=== PATIENT | male | born 1985 | race Two or more races ===

== ENCOUNTER 2024-09-26 13:12 | Outpatient (AMB) | payer MEDICAID, SELFPAY ==
[2024-09-26 13:24] VITALS: BP 121/80; PULSE 117; RESP 18; TEMP 36.7; O2SAT 98
--- NOTE | 2024-09-26 13:24 | PD.RESCLINIC ---
Vital Signs 09/26/24 13:24 Weight 98.656 kg Weight Measurement Method Standing Scale BP 121/80 Blood Pressure Source Automatic Cuff Blood Pressure Location Left Upper Arm Position Sitting Respiration 18 Pulse 117 H Pulse Source Monitor Temp 98.1 F Temp Source Oral Pulse Oximetry (%) 98 Oxygen Delivery Method Room Air Allergies/Meds Allergies & Medications Allergies No Known Allergies Allergy (Verified 09/26/24 13:25) Medication Reconciliation gabapentin 300 mg capsule 300 mg PO TID diabetic neuropathy #90 caps 10/10/23 [Rx Confirmed 09/26/24] lisinopril 5 mg tablet 5 mg PO QDAY 30 days #30 tabs 11/10/23 [Rx Confirmed 09/26/24] pantoprazole 40 mg tablet,delayed release (Protonix) 40 mg PO BID #60 tabs 12/27/23 [Rx Confirmed 09/26/24] blood sugar diagnostic (Accu-Chek Guide test strips) #100 ea 01/16/24 [Rx Confirmed 09/26/24] lancets 30 gauge (OneTouch UltraSoft 2 Lancet) #200 ea 03/26/24 [Rx Confirmed 09/26/24] pen needle, diabetic 33 gauge x 5/32 (Comfort EZ Pen [place]) #100 ea 06/06/24 [Rx Confirmed 09/26/24] blood-glucose sensor (FreeStyle Tank 3 Sensor device) #2 ea 06/13/24 [Rx Confirmed 09/26/24] insulin degludec 200 unit/mL (3 mL) subcutaneous pen (Tresiba FlexTouch U-200 insulin) 30 unit (0.15 mL) subcut BID #9 mL 06/13/24 [Rx Confirmed 09/26/24] metformin 750 mg tablet,extended release 24 hr 750 mg PO QDAY #30 tabs 06/13/24 [Rx Confirmed 09/26/24] bupropion HCl 150 mg tablet,12 hr sustained-release 150 mg PO BID #60 ea 08/01/24 [Rx Confirmed 09/26/24] testosterone cypionate 200 mg/mL intramuscular oil 200 mg IM QMONTH hypogonadism #1 mL 08/01/24 [Rx Confirmed 09/26/24] sucralfate 100 mg/mL oral suspension (Carafate) 10 ml PO QID #420 mL 08/15/24 [Rx Confirmed 09/26/24] amoxicillin 875 mg-potassium clavulanate 125 mg tablet 1 tab PO BID #10 tabs 09/04/24 [Rx Confirmed 09/26/24] blood-glucose sensor (Dexcom G7 Sensor device) #1 ea 09/26/24 [Rx] insulin lispro 100 unit/mL subcutaneous pen 20 unit (0.2 mL) subcut TID #15 mL 09/26/24 [Rx] tirzepatide (weight loss) 2.5 mg/0.5 mL subcutaneous pen injector (Zepbound) 2.5 mg (0.5 mL) subcut QWEEK #2 mL 09/26/24 [Rx] hydrocodone 5 mg-acetaminophen 325 mg tablet 1 tab PO Q8H PRN pain #20 tabs 10/10/24 [Rx] MA Intake Visit Data Collection New Patient or Established: Established Patient (seen at [facility] within 3 years) Seen by Clinical Staff ONLY (RN/MA): No Pain Present Currently: Yes Pain Location: Back and Leg Pain scale:: 7 Pain Scale Used: Dickey-Hanna/Numerical PCP or OBGYN visit in last 3 months: Yes Do You Feel Safe at Home: Yes Authorities Contacted: N/A Smoking Status Smoking Status: Current some day smoker Cessation Counseling Provided: AMY was advised that quitting smoking is the single most important factor to protect the health of themselves and their family. Discussed the benefits of quitting smoking with patient. Encouraged patient to quit smoking and provided Cessation assistance materials and resources. Tobacco Use: Vapor Cigarette Years smoked: 1 Are you interested in quitting?: No Would you like additional Smoking Cessation Counseling?: No Immunization / Flu Flu Vaccine in the Last 12 Months: No Flu Vaccine Exclusion Criteria: No Exclusion Criteria Past Medical History Past Medical History NEUROLOGIC: Negative Neurological Disorders or Seizures CARDIAC: Positive Cardiac Disorders, Hypercholesterolemia and Hypertension; Negative Congestive Heart Failure RESPIRATORY: Negative Chronic Obstructive Pulmonary Disease (COPD) or Asthma GASTROINTESTINAL: Negative Gastrointestinal Disorders GENITOURINARY: Negative Genitourinary Disorders or Renal Disease ENDOCRINE: Positive Endocrine Disorders and Diabetes Mellitus Type 2; Negative Diabetes Mellitus Type 1 HEMATOLOGIC: Negative Blood Disorders or Sickle Cell Disease PSYCHO/SOCIAL: Positive Depression and Anxiety OTHER HISTORY: Positive Falls; Negative Blood Transfusions, Anesthesia Reactions or Cancer Surgical History SURGICAL: Positive Tonsillectomy Social History SMOKING STATUS: Smoking status: Current some day smoker ALCOHOL: Alcohol Intake: Former ALCOHOL FREQUENCY: Alcohol Intake Frequency: holidays/special occasions only HOUSING: Housing: House LIVES WITH: Lives With: Friend(s) Patient Portal Questionaires Social History Living Situation History Housing: House Housing Other:: Pt lives with family Tobacco History Smoking Status: Current some day smoker Alcohol History Alcohol Intake: Former Alcohol Intake Frequency: holidays/special occasions only Substance Use History Substance Use: Meth Domestic Abuse History Do You Feel Safe at Home: Yes Review of Systems Report any current symptoms Only answer those that you have currently: Past Medical History Past Medical History Have you ever been diagnosed with any of the following: Neurological Problems Seizures: No Cardiology Problems Hypercholesterolemia: Yes Congestive Heart Failure: No Hypertension: Yes Respiratory Problems Chronic Obstructive Pulmonary Disease (COPD): No Asthma: No Genital/Urinary Problems Renal Disease: No Endocrine Problems Diabetes Mellitus Type 1: No Diabetes Mellitus Type 2: Yes Blood Problems Sickle Cell Disease: No Psychologic Problems Depression: Yes Anxiety: Yes Other Problems Falls: Yes Blood Transfusions: No Anesthesia Reactions: No Cancer: No History of Present Illness HPI Narrative Patient is 39 years old male with past medical history of left knee ACL rupture, hyperlipidemia, hypertension, right foot cellulites and unknown type of poorly controlled DM presented to [facility] resident academic clinic for the follow up appointment. He was seen in academic clinic on 09/04 after he was bitten by the dog and was prescribed Augmentin for 5 days. He has 3 small wounds on his lower back, inflamed and tender to touch. He completed course of antibiotics and reports mild improvement. He also developed painful bump in his right armpit with fluctuating mass, suspicious for abscess. He denied any fever, chills. His glucose today 403, he reports being compliant with his medications, however zepbound is still pending as insurance requested preauthorization, which was sent today. Patient has skipped 2 injections of zepbound at this time. He continues to have pain in his left knee and limited mobility which is unchanged since last visit, authorization for orthopedic surgery is still pending. He continues to take his medications from his therapist. He denies taking any drugs and continues attending meetings. He continues testosterone injections and is scheduled for next week. Review of Systems Review of Systems Narrative Review of Systems: General: Denies weight loss, fever and chills. HEENT: Denies changes in vision and hearing. Resp: Denies SOB, cough and wheezing. CVS: Denies palpitations and CP. GI: Denies abdominal pain, nausea, vomiting and diarrhea. : Denies dysuria and urinary frequency. MSK: + left knee pain, lower back pain, right armpit tender mass. Denies myalgia and joint pain. Denies rash and pruritus. Neuro: Denies headache and syncope. Psych: Denies recent changes in mood. Denies anxiety and depression. Objective/Exam Narrative Physical exam: Gen: Well-developed male, interacting well, calm and cooperative. HEENT: NCAT, PERRLA, EOMI, MMM, anicteric conjunctivae. CVS: normal S1 and S2. Regular tachycardia. No M/R/G. Resp: CTAB, no wheezing, crackles or rhonchi. Abd: soft, non-tender, non-distended. BS+ in all 4 quadrants. MSK: Good ROM in BUE. Multiple hypopigmented skin spots consistent with vitiligo. Left knee is in immobilizer, mildly tender to palpation and ROM. 3 healing wounds from dog bite on lower back. Tender fluctuation mass in right armpit suspicious for abscess. Neuro: CN II-XII grossly intact. Psych: appropriate mood and affect. Assessment & Plan Diagnosis / Problem List (1) Axillary hidradenitis suppurativa: Status: Acute Assessment & Plan: 3x5 cm fluctuating tender mass in right armpit, consistent with hydradenitis, suspected abscess. Patient reported it was draining some pus yesterday. Plan: -Patient was recommended to go to ED today for imaging and surgical consult, however patient will not be able to go there until Monday. He was strongly recommended to go to ED on Monday or sooner, or if symptoms worsen or he develops fever and chills. -Started on Clindamycin 300 mg Q6H for 7 days or until he goes to ED. (2) Dog bite of back: Status: Acute Assessment & Plan: Bit by dog on 09/03. Tetanus shot 09/2022. Completed Augmentin BID for 5 days on 09/09. Plan: -Started on clindamycin 300 mg Q6H for 1 week. -counselled on worsening infection, fever, to go to urgent care or ER. (3) Low testosterone in male: Status: Acute Assessment & Plan: Testosterone level 241 in Jun 2024. On testosterone replacement therapy. Plan: - Injection scheduled for next week. - Check testosterone levels after 3 months. (4) ACL (anterior cruciate ligament) rupture: Status: Acute Qualifiers: Encounter type: initial encounter Laterality: left Qualified Code(s): S83.512A - Sprain of anterior cruciate ligament of left knee, initial encounter Assessment & Plan: Pending insurance authorization for orthopedic surgery consult. Plan: -Continue with [place] for pain as needed. (5) Depression: Status: Chronic Qualifiers: Active/Remission status: currently active Depression Type: major depressive disorder Major depression episode severity: mild Major depression recurrence: single episode Qualified Code(s): F32.0 - Major depressive disorder, single episode, mild Assessment & Plan: Takes Wellbutrin, tolerating well. Plan: Continue Wellbutrin 150 mg BID. (6) Diabetes mellitus type 2 with complications, uncontrolled: Status: Acute Assessment & Plan: Pending zepbound preauthorization, patient already skipped 2 injections and his glucose today 403. Plan: -Continue with Tresiba 30U BID and Lispro for BG above 200. -Continue zepbound weekly. -Continue metformin 750 Mg ER once daily. -Reinforced low carbohydrate and sugar-free diet. -follow up with opthamology for yearly exam. -follow up podiatry. (7) Diabetes mellitus with diabetic neuropathy: Status: Chronic Qualifiers: Diabetes mellitus type: type 1 Qualified Code(s): E10.40 - Type 1 diabetes mellitus with diabetic neuropathy, unspecified Plan: Continue gabapentin 300 mg TID. Follow up with podiatry. Additional Assessment Attending note: I, Noah Turner MD, attest that I was physically present for the alatorre portions of the service and evaluated the patient with the resident and I reviewed and discussed the case with the resident and agree with the resident's findings and plans of care as documented above. Follow-up visit. Has fluctuant abscess in right axilla. Did drain pus yesterday. May need incision and drainage. Patient started on clindamycin. Patient to get tetanus shot for prior dog bite. Had completed 5 days of Augmentin. Patient to have injection of testosterone next week. Still waiting on insurance authorization for orthopedic surgery evaluation for ACL tear. Diabetes self-care reviewed including diet, exercise, footcare, eye care. Patient has missed 2 weekly injections of GLP-1. Patient to resume this along with other medications. Other plans as above. Noah Turner MD Additional Plan Plan of care discussed with attending Dr. Turner. Rafael Giraldo MD, PGY 2. Disclaimer: This note was dictated by speech recognition. Minor errors in jd edwards may be present due to voice recognition software. Physician Billing Established Patient Established Patient: E/M Level 3-CPT 48792 Office Procedures [facility] Level of Care Nursing/Assessment Patient Status: Established Patient Nursing Assessment/Reassessment: Medication Reconciliation, Update PMH in EMR and Vital Signs Coordination of Care: Complex Care and Chronic Disease 1-5, Education Complex Pt/Fam and Staff clarify orders Established Patient Charge Established Patient Point Assignment: 85 Established Patient Point Charge: EP Level 3 (80-115)
== END 2024-09-26 14:03 | disposition home or self-care (01) ==
LOC: HODAHC 13:12
PROVIDERS: PCP Student in an Organized Health Care Education/Training Program; Referring Provider Student in an Organized Health Care Education/Training Program; Supervising Provider Internal Medicine; Visit Provider Student in an Organized Health Care Education/Training Program
DX: S21.259D Open bite of unspecified back wall of thorax without penetration into thoracic cavity, subsequent encounter (principal); W54.0XXD Bitten by dog, subsequent encounter; L73.2 Hidradenitis suppurativa; S83.512D Sprain of anterior cruciate ligament of left knee, subsequent encounter; X58.XXXD Exposure to other specified factors, subsequent encounter; E29.1 Testicular hypofunction; E11.40 Type 2 diabetes mellitus with diabetic neuropathy, unspecified; E78.5 Hyperlipidemia, unspecified; I10 Essential (primary) hypertension
CPT/HCPCS: 99213; G0463

== ENCOUNTER 2024-10-17 14:24 | Outpatient (AMB) | payer MEDICAID, SELFPAY ==
[2024-10-17 14:09] VITALS: BP 134/90; PULSE 111; RESP 18; TEMP 36.2; O2SAT 96; BMI 29.5
--- NOTE | 2024-10-17 14:09 | ACNOTE_ITS ---
Vital Signs 3 10/17/24 14:09 Height 1.83 m Height Method Stated Weight 98.94 kg Weight Measurement Method Standing Scale BMI 29.5 BP 134/90 H Blood Pressure Source Automatic Cuff Blood Pressure Location Left Upper Arm Position Sitting Respiration 18 Pulse 111 H Pulse Source Monitor Temp 97.2 F Temp Source Oral Pulse Oximetry (%) 96 Oxygen Delivery Method Room Air Allergies/Meds Allergies & Medications Allergies No Known Allergies Allergy (Verified 10/17/24 14:10) Medication Reconciliation gabapentin 300 mg capsule 300 mg PO TID diabetic neuropathy #90 caps 10/10/23 [Rx Confirmed 10/17/24] lisinopril 5 mg tablet 5 mg PO QDAY 30 days #30 tabs 11/10/23 [Rx Confirmed 10/17/24] pantoprazole 40 mg tablet,delayed release (Protonix) 40 mg PO BID #60 tabs 12/27/23 [Rx Confirmed 10/17/24] blood sugar diagnostic (Accu-Chek Guide test strips) #100 ea 01/16/24 [Rx Confirmed 10/17/24] lancets 30 gauge (OneTouch UltraSoft 2 Lancet) #200 ea 03/26/24 [Rx Confirmed 10/17/24] pen needle, diabetic 33 gauge x 5/32 (Comfort EZ Pen [place]) #100 ea 06/06/24 [Rx Confirmed 10/17/24] blood-glucose sensor (FreeStyle Tank 3 Sensor device) #2 ea 06/13/24 [Rx Confirmed 10/17/24] insulin degludec 200 unit/mL (3 mL) subcutaneous pen (Tresiba FlexTouch U-200 insulin) 30 unit (0.15 mL) subcut BID #9 mL 06/13/24 [Rx Confirmed 10/17/24] metformin 750 mg tablet,extended release 24 hr 750 mg PO QDAY #30 tabs 06/13/24 [Rx Confirmed 10/17/24] bupropion HCl 150 mg tablet,12 hr sustained-release 150 mg PO BID #60 ea 08/01/24 [Rx Confirmed 10/17/24] testosterone cypionate 200 mg/mL intramuscular oil 200 mg IM QMONTH hypogonadism #1 mL 08/01/24 [Rx Confirmed 10/17/24] sucralfate 100 mg/mL oral suspension (Carafate) 10 ml PO QID #420 mL 08/15/24 [Rx Confirmed 10/17/24] blood-glucose sensor (Dexcom G7 Sensor device) #1 ea 09/26/24 [Rx Confirmed 10/17/24] insulin lispro 100 unit/mL subcutaneous pen 20 unit (0.2 mL) subcut TID #15 mL 09/26/24 [Rx Confirmed 10/17/24] tirzepatide (weight loss) 2.5 mg/0.5 mL subcutaneous pen injector (Zepbound) 2.5 mg (0.5 mL) subcut QWEEK #2 mL 09/26/24 [Rx Confirmed 10/17/24] doxycycline hyclate 100 mg capsule 100 mg PO BID #28 caps 10/17/24 [Rx] hydrocodone 5 mg-acetaminophen 325 mg tablet 1 tab PO Q8H PRN pain #60 tabs 10/17/24 [Rx] MA Intake Visit Data Collection New Patient or Established: Established Patient (seen at [facility] within 3 years) Seen by Clinical Staff ONLY (RN/MA): No Pain Present Currently: Yes Pain Location: Back and Knee Pain scale:: 6 Pain Scale Used: Dickey-Hanna/Numerical Cuff Setter [place] Required: No PCP or OBGYN visit in last 3 months: Yes Do You Feel Safe at Home: Yes Authorities Contacted: N/A Smoking Status Smoking Status: Current some day smoker Cessation Counseling Provided: AMY was advised that quitting smoking is the single most important factor to protect the health of themselves and their family. Discussed the benefits of quitting smoking with patient. Encouraged patient to quit smoking and provided Cessation assistance materials and resources. Tobacco Use: Cigarette Years smoked: 5 Are you interested in quitting?: No Immunization / Flu Flu Vaccine in the Last 12 Months: No Flu Vaccine Exclusion Criteria: Refused by Patient Past Medical History Past Medical History NEUROLOGIC: Negative Neurological Disorders or Seizures CARDIAC: Positive Cardiac Disorders, Hypercholesterolemia and Hypertension; Negative Congestive Heart Failure RESPIRATORY: Negative Chronic Obstructive Pulmonary Disease (COPD) or Asthma GASTROINTESTINAL: Negative Gastrointestinal Disorders GENITOURINARY: Negative Genitourinary Disorders or Renal Disease ENDOCRINE: Positive Endocrine Disorders and Diabetes Mellitus Type 2; Negative Diabetes Mellitus Type 1 HEMATOLOGIC: Negative Blood Disorders or Sickle Cell Disease PSYCHO/SOCIAL: Positive Depression and Anxiety OTHER HISTORY: Positive Falls; Negative Blood Transfusions, Anesthesia Reactions or Cancer Surgical History SURGICAL: Positive Tonsillectomy Social History SMOKING STATUS: Smoking status: Current some day smoker ALCOHOL: Alcohol Intake: Former ALCOHOL FREQUENCY: Alcohol Intake Frequency: holidays/special occasions only HOUSING: Housing: House LIVES WITH: Lives With: Friend(s) Patient Portal Marcoairluis Social History Living Situation History Housing: House Housing Other:: Pt lives with family Tobacco History Smoking Status: Current some day smoker Alcohol History Alcohol Intake: Former Alcohol Intake Frequency: holidays/special occasions only Substance Use History Substance Use: Meth Domestic Abuse History Do You Feel Safe at Home: Yes Review of Systems Report any current symptoms Only answer those that you have currently: Past Medical History Past Medical History Have you ever been diagnosed with any of the following: Neurological Problems Seizures: No Cardiology Problems Hypercholesterolemia: Yes Congestive Heart Failure: No Hypertension: Yes Respiratory Problems Chronic Obstructive Pulmonary Disease (COPD): No Asthma: No Genital/Urinary Problems Renal Disease: No Endocrine Problems Diabetes Mellitus Type 1: No Diabetes Mellitus Type 2: Yes Blood Problems Sickle Cell Disease: No Psychologic Problems Depression: Yes Anxiety: Yes Other Problems Falls: Yes Blood Transfusions: No Anesthesia Reactions: No Cancer: No History of Present Illness HPI Narrative 39-year-old male with past medical history of left knee ACL rupture, hyperlipidemia, hypertension, and IDDM was seen in the [facility] clinic today for follow-up and for his testosterone shot. Patient was briefly seen due to fluctuating tender mass in the right arm. For which she was prescribed clindamycin. Today on assessment mass had greatly improved and he stated that he did not have any pain. Other entry wounds from a prior dog bite were also greatly improved and patient stated that they had not been having any discharge. He did mention that he did get a new mass at the back of his head, but denies any fevers, chills, sweats, or cough. Patient is also due for testosterone injection today, which was administered without any complication. Patient did mention that he is going to go back to work and wants to be cleared even though it was explained to him that he has an ongoing injury that could worsen with prolonged weightbearing. He stated that he had to go back to work as his disability had finished and he understood all risk of him going back to work with his current injury of ACL rupture. Work release was given to patient and he was counseled to wear a knee brace as well as being nonweightbearing as possible. He had no other complaints at this time other than his pain in his knee and the knee for his testosterone. Will follow-up with patient in 2 weeks to see progression of mass in the posterior aspect of his head. Review of Systems Review of Systems Narrative Review of Systems: Constitutional: Denies sweats, Denies weight loss/gain, Denies fever, Denies chills. HEENT: Denies hearing loss, Denies ear pain, Denies postnasal drip, Denies double vision, Denies blurry vision. Respiratory: Denies shortness of breath, Denies cough, Denies wheezing. Cardiovascular: Denies chest pain, Denies palpitations, Denies sudden loss of consciousness. GI: Denies blood in stool, Denies constipation, Denies abdominal pain, Denies difficulty swallowing, Denies nausea or vomit. : Denies urinary incontinence, Denies pain while urinating, Denies increased urinary frequency. MSK: Admits joint pain, Admits joint swelling, Denies numbness. Skin: Denies rash, Denies itching, Denies easy bruising, Admits mass. Neuro: Denies headaches, Denies dizziness, Denies seizures. Objective/Exam General General Appearance: alert, comfortable, cooperative and well developed Head Head exam: atraumatic and normocephalic Exp Head Head image: 2 1. Nonfluctuating mass with dry discharge likely carbuncle. Eye Eye exam: Present normal appearance, PERRL and EOMI ENT ENT exam: Present normal exam, normal oropharynx and mucous membranes dry Neck Neck exam: Present normal inspection and full ROM Resp Respiratory exam: Present normal lung sounds bilaterally Card Cardiovascular exam: Present regular rate, normal rhythm and normal heart sounds Abdominal Abdominal exam: Present soft and normal bowel sounds Extremities Extremities exam: Present normal inspection, full ROM, tenderness (R knee ) and joint swelling (R knee) Neuro Neurological exam: Present alert, oriented X3 and CN II-XII intact Psych Psychiatric exam: Present normal affect and normal mood Skin Skin exam: Present intact and normal color Assessment & Plan Diagnosis / Problem List (1) Carbuncle: Status: Acute Assessment & Plan: nonfluctuating mass in posterior head with dry discharge Plan: Doxycycline 100mg BID for 2 weeks Advised to go the ER if developed fever, chills, worsening pain or change in size or color. (2) Axillary hidradenitis suppurativa: Status: Acute Assessment & Plan: Improving Completed Clindamycin Plan: Doxycycline 100mg BID for 2 weeks Advised to go the ER if developed fever, chills, worsening pain or change in size or color. (3) Dog bite of back: Status: Acute Assessment & Plan: Bit by dog on 09/03. Tetanus shot 09/2022. Completed Augmentin BID for 5 days on 09/09. -Improving Plan: Doxycycline 100mg BID for 2 weeks Advised to go the ER if developed fever, chills, worsening pain or change in size or color. (4) Low testosterone in male: Status: Acute Assessment & Plan: Testosterone level 241 in Jun 2024. On testosterone replacement therapy. Plan: Injection given today (5) ACL (anterior cruciate ligament) rupture: Status: Acute Qualifiers: Encounter type: initial encounter Laterality: left Qualified Code(s): S83.512A - Sprain of anterior cruciate ligament of left knee, initial encounter Assessment & Plan: Still no surgery Patient requested to be cleared to go back to work and understood all risks of his injury. Plan: -Continue with [place] for pain as needed. -Work release given as per patient's request upon explaining all risks. (6) Diabetes mellitus type 2 with complications, uncontrolled: Status: Acute Assessment & Plan: Blood glucose 240 today on fingerstick Plan: -Continue with Tresiba 30U BID and Lispro for BG above 200. -Continue zepbound weekly. -Continue metformin 750 Mg ER once daily. -Reinforced low carbohydrate and sugar-free diet. Additional Assessment Attending note: I, Noah Turner MD, attest that I was physically present for the alatorre portions of the service completed via telehealth, and I reviewed and discussed the case with the resident and agree with the resident's plans of care as documented above. Follow-up visit. Carbuncle in axilla improved. Dog bite wound improved. Testosterone injection administered today using patient's own medication. Patient asking for clearance to go back to work in spite of ACL rupture that has not yet been repaired. He will continue to wear a knee brace. He is aware of the risks of further potential injury given the knee instability. Note made on exam today of small carbuncle on posterior scalp. We will cover with doxycycline for 2 weeks. Blood sugars continue to be elevated. Need for diet and exercise compliance reinforced though exercise difficult at this time given the issues. Also emphasized need for medication compliance. Limited amount of [place] refilled for knee pain. Noah Turner MD Physician Billing Established Patient Established Patient: E/M Level 3-CPT 58728 Office Procedures [facility] Level of Care Nursing/Assessment Patient Status: Established Patient Nursing Assessment/Reassessment: Medication Reconciliation, Update PMH in EMR and Vital Signs Coordination of Care: Complex Care and Chronic Disease 1-5, Consent,records obtained, informed consent, Education Simp Pt/Fam and Staff clarify orders Established Patient Charge Established Patient Point Assignment: 85 Established Patient Point Charge: EP Level 3 (80-115)
== END 2024-10-17 15:00 | disposition home or self-care (01) ==
LOC: HODAHC 14:24
PROVIDERS: PCP Student in an Organized Health Care Education/Training Program; Referring Provider Student in an Organized Health Care Education/Training Program; Supervising Provider Internal Medicine
DX: L02.831 Carbuncle of head [any part, except face] (principal); L73.2 Hidradenitis suppurativa; E29.1 Testicular hypofunction; S83.512D Sprain of anterior cruciate ligament of left knee, subsequent encounter; X58.XXXD Exposure to other specified factors, subsequent encounter; E11.9 Type 2 diabetes mellitus without complications; Z79.4 Long term (current) use of insulin; Z79.84 Long term (current) use of oral hypoglycemic drugs
CPT/HCPCS: 99213; G0463

== ENCOUNTER 2024-10-29 17:43 | Inpatient (IN) | payer MEDICAID, SELFPAY ==
[2024-10-29] VITALS (24 sets, daily range): BP systolic 100–133; BP diastolic 65–82; PULSE 118–132; RESP 13–98; TEMP 36.4; O2SAT 97–100; BMI 29.4
--- NOTE | 2024-10-29 18:35 | EKG_ITS ---
[facility] Test Date: 2024-10-29 Pat Name: AMY CHEN Department: Room: - Gender: Male Testing Specialist: : [id number] Requested By: Shan Hsieh ([facility]) Order Number: [id number] Reading MD: Shan Hsieh ([facility]) Measurements Intervals [place] Rate: 130 P: 49 [place]: 146 QRS: -38 QRSD: 97 T: 59 QT: 302 QTc: 445 Interpretive Statements SINUS TACHYCARDIA MARKED LEFT AXIS DEVIATION [QRS AXIS < -30] LOW QRS VOLTAGE IN PRECORDIAL LEADS [QRS DEFLECTION < 1.0 mV IN CHEST LEADS] PATTERN CONSISTENT WITH PULMONARY DISEASE PROBABLE INFERIOR MYOCARDIAL INFARCTION , OF INDETERMINATE AGE [35 ms Q WAVE IN II/aVF] Compared to ECG 03/21/2024 10:35:17 Left-axis deviation now present Low QRS voltage now present Sinus rhythm no longer present Myocardial infarct finding still present /store/S0/[id number]/ecg/[id number].pdf
--- NOTE | 2024-10-29 18:35 | PD.EDRME ---
Rapid Medical Screening Exam RME Arrival date/time: 10/29/24 17:43 39-year-old male past medical history of hypertension diabetes presents emergency department complaining of skin infection to neck that is been ongoing for several days. Chief Complaint: Skin/Abscess/Foreign Body Time Seen by Provider: 10/29/24 18:06 Vital signs: Vital Signs Temperature 97.6 F 10/29/24 18:28 Pulse Rate 118 H 10/29/24 18:28 Respiratory Rate 18 10/29/24 18:28 Blood Pressure 133/82 H 10/29/24 18:28 Pulse Oximetry (%) 98 10/29/24 18:28 Oxygen Delivery Method Room Air 10/29/24 18:28 Vital signs reviewed by provider: Yes
--- NOTE | 2024-10-29 18:36 | XR_ITS ---
Examination: CT soft tissue neck, with intravenous contrast. 2-D coronal reconstructions. 2-D sagittal reconstructions. Date and time of exam :October 29, 2024 2049 hrs. Indications: Abdominal pain beginning 2 weeks ago, clinical diagnosis abscess, history diffuse pancreatitis, 3 mm left renal calculus on CT study March 21, 2024., Soft tissue swelling and neck pain posterior left neck CTDI: vol (mGy):10.8 DLP: (mGycm):379 Technique: 1.25 mm axial sections of the neck of the obtained. Coronal and sagittal reconstructions have been obtained. Intravenous contrast administered 30 cc Isovue-370. Low dose protocols were performed. One or more of the following dose reduction techniques were used; automated exposure control, adjustment of the mA and/or KV according to patient size, use of iterative reconstruction technique. Findings: Symmetrical optic globes Small fluid level in the right maxillary antrum Symmetrical nasopharynx and oropharynx Multiple submental and carotid triangle lymph nodes ranging in size up to 12 mm Cellulitis in the posterior left neck Subcutaneous soft tissue abscess posterior left neck, mediolateral dimension 5.4 cm, AP dimension 3.7 cm, cephalad caudad dimension 4.8 cm with marked adjacent skin thickening Normal epiglottis Impression: Subcutaneous soft tissue posterior left neck abscess, 5.4 x 3.7 x 4.8 cm
[2024-10-29 19:40] LABS: Lactate (Lactic Acid) 1.4 mMol/L (0.4-2.0)
[2024-10-29 19:46] LABS: Basophils # (Auto) 0.1 Thou/mm3 (0.0-0.2); Basophils % (Auto) 0 % (0-2.5); Eosinophils % (Auto) 0 % (0-10); Hematocrit 44.3 % (41.0-53.0); Hemoglobin 14.7 g/dL (13.5-16.0); Immature Granulocytes % (Auto) 2 % (0-0); Immature Granulocytes Auto 0.39 Thou/mm3 (0.00-0.00); Lymphocytes # (Auto) 1.1 Thou/mm3 (1.0-4.8); Lymphocytes % (Auto) 4 % (10-50); Mean Corpuscular HGB Conc 33.2 g/dl (31.0-37.0); Mean Corpuscular Hemoglobin 27.6 pg (25.0-35.0); Mean Corpuscular Volume 83 fL (80-100); Monocytes # (Auto) 2.3 Thou/mm3 (0.0-0.8); Monocytes % (Auto) 9 % (0-12); Neutrophils # (Auto) 20.8 Thou/mm3 (1.8-7.7); Neutrophils % (Auto) 85 % (37-80); Nucleated Red Blood Cell % 0 /100 WBC (0); Platelet Count 298 Thou/mm3 (140-440); RDW Standard Deviation 41.1 fL (35.1-43.9); Red Blood Count 5.32 Miln/mm3 (4.50-5.90); White Blood Count 24.6 Thou/mm3 (3.8-10.6)
[2024-10-29 20:07] LABS: B-Type Natriuretic Peptide < 20 pg/mL (0-100)
[2024-10-29 20:17] LABS: Alanine Aminotransferase 13 U/L (10-49); Albumin, Serum 4.9 gm/dL (3.5-5.0); Albumin/Globulin Ratio 1.6 (1.2-2.2); Alkaline Phosphatase 134 U/L (46-116); Anion Gap 22 (7-16); BUN/Creatinine Ratio 14 Ratio (12-20); Bilirubin,Total 0.3 mg/dL (0.3-1.2); Blood Urea Nitrogen 26 mg/dL (9-23); Calcium 10.1 mg/dL (8.3-10.6); Calcium (Corrected) 10.1 mg/dL (8.5-10.1); Chloride 94 mMol/L (98-107); Creatinine (Component) 1.8 mg/dL (0.6-1.3); Estimated Creatinine Clearance 65.6 mL/min (>60); Lipase 29 U/L (12-53); Osmolality,Calculated 280 (275-295); Potassium 5.4 mMol/L (3.4-5.1); Procalcitonin 0.17 ng/ml (0.0-0.49); Sodium 126 mMol/L (136-145); Total Protein 7.9 gm/dL (5.7-8.2); Troponin I < 0.002 ng/mL (0.0-0.045); eGFR 48 See Note
[2024-10-29 20:22] LABS: Aspartate Amino Transferase < 8 U/L (0-34)
[2024-10-29 20:24] LABS: Carbon Dioxide < 10.0 mMol/L (20.0-31.0); Glucose 495 mg/dL (74-106)
[2024-10-29 20:45] LABS: Partial Thromboplastin Time 36.9 Seconds (22.0-36.0); Prothrombin Time 11.2 Seconds (9.0-12.2)
--- NOTE | 2024-10-29 21:08 | PD.EDSKIN ---
ED Skin Abcess FB-RME/HPI General Chief complaint: Skin/Abscess/Foreign Body Stated complaint: bite from dog, abscess to lower back and left neck Time Seen by Provider: 10/29/24 18:06 Source: patient Arrival date/time: 10/29/24 17:43 Mode of arrival: ambulatory Limitations: no limitations RME / HPI RME / HPI narrative: 10/29/24 17:43 39-year-old male past medical history of hypertension diabetes presents emergency department complaining of skin infection to neck that is been ongoing for several days. Dr. Gates?s Main ED Evaluation: Related Data Previous Rx's ?Medication ?Instructions ?Recorded gabapentin 300 mg capsule 300 mg PO TID diabetic neuropathy 10/10/23 #90 caps lisinopril 5 mg tablet 5 mg PO QDAY 30 days #30 tabs 11/10/23 pantoprazole 40 mg tablet,delayed 40 mg PO BID #60 tabs 12/27/23 release (Protonix) blood sugar diagnostic (Accu-Chek #100 ea 01/16/24 Guide test strips) lancets 30 gauge (OneTouch #200 ea 03/26/24 UltraSoft 2 Lancet) pen needle, diabetic 33 gauge x #100 ea 06/06/24 (Comfort EZ Pen Carson) blood-glucose sensor (FreeStyle #2 ea 06/13/24 Tank 3 Sensor device) insulin degludec 200 unit/mL (3 30 unit (0.15 mL) subcut BID #9 mL 06/13/24 mL) subcutaneous pen (Tresiba FlexTouch U-200 insulin) metformin 750 mg tablet,extended 750 mg PO QDAY #30 tabs 06/13/24 release 24 hr bupropion HCl 150 mg tablet,12 hr 150 mg PO BID #60 ea 08/01/24 sustained-release testosterone cypionate 200 mg/mL 200 mg IM QMONTH hypogonadism #1 mL 08/01/24 intramuscular oil sucralfate 100 mg/mL oral 10 ml PO QID #420 mL 08/15/24 suspension (Carafate) blood-glucose sensor (Dexcom G7 #1 ea 09/26/24 Sensor device) insulin lispro 100 unit/mL 20 unit (0.2 mL) subcut TID #15 mL 09/26/24 subcutaneous pen tirzepatide (weight loss) 2.5 2.5 mg (0.5 mL) subcut QWEEK #2 mL 09/26/24 mg/0.5 mL subcutaneous pen injector (Zepbound) doxycycline hyclate 100 mg capsule 100 mg PO BID #28 caps 10/17/24 hydrocodone 5 mg-acetaminophen 325 1 tab PO Q8H PRN pain #60 tabs 10/17/24 mg tablet Allergies Allergy/AdvReac Type Severity Reaction Status Date / Time No Known Allergies Allergy Verified 10/29/24 17:48 Review of Systems Review of Systems Systems Reviewed: All systems reviewed, normal except as documented Past Medical History Past Medical History NEUROLOGIC: Negative Neurological Disorders or Seizures CARDIAC: Positive Hypercholesterolemia and Hypertension; Negative Cardiac Disorders or Congestive Heart Failure RESPIRATORY: Negative Chronic Obstructive Pulmonary Disease (COPD) or Asthma GASTROINTESTINAL: Negative Gastrointestinal Disorders GENITOURINARY: Negative Genitourinary Disorders or Renal Disease MUSCULOSKELETAL: Negative Musculoskeletal Disorders ENDOCRINE: Positive Endocrine Disorders and Diabetes Mellitus Type 2; Negative Diabetes Mellitus Type 1 HEMATOLOGIC: Negative Blood Disorders or Sickle Cell Disease PSYCHO/SOCIAL: Positive Depression and Anxiety OTHER HISTORY: Positive Falls; Negative Blood Transfusions, Anesthesia Reactions or Cancer Surgical History SURGICAL: Positive Tonsillectomy Social History SMOKING STATUS: Current every day smoker SUBSTANCE USE: does not use ED Exam Narrative Physical exam: GENERAL APPEARANCE: alert and oriented x 4, well-developed, well-nourished, no acute distress VITALS: All vitals were reviewed and the pulse ox is % on room air, which is normal according to my interpretation. HEENT: Normocephalic, atraumatic; pupils equal, round, reactive to light; EOMI; mucous membranes pink, moist; oropharynx clear NECK: Supple LUNGS: CTABL; no wheezes, no rales, no rhonchi HEART: Regular rate, regular rhythm; normal S1, S2; no murmurs ABDOMEN: non distended; normal BS; soft, no tenderness, no guarding, no rebound; no masses, no organomegaly, no hernia BACK: no CVA tenderness EXTREMITIES: atraumatic; no edema NEUROLOGIC: awake; alert and oriented x4; cranial nerves II-XII grossly intact; no focal sensory or motor deficits PSYCHIATRIC: appropriate mood and affect SKIN: warm, dry, normal color; no rashes General Limitations: Present no limitations Course Quality Measures none Orders Category Date Time Status CT Screening NOW Care 10/29/24 18:36 Active Continuous Pulse Oximetry STAT Care 10/29/24 18:35 Active EKG (ED ONLY) *Do not use* NOW Care 10/29/24 18:35 Completed Insert IV NOW Care 10/29/24 18:[address] soft tissue neck w con Stat Exams 10/29/24 18:36 Taken EKG (ED Only) Stat Exams 10/29/24 18:35 Draft B-Type Natriuretic Peptide Stat Lab 10/29/24 19:21 Completed Beta Hydroxybutyrate Stat Lab 10/29/24 20:37 Ordered Blood Culture (Lab) Stat Lab 10/29/24 19:21 Received CBC Stat Lab 10/29/24 19:21 Completed Comprehensive Metabolic Panel Stat Lab 10/29/24 19:21 Completed Drug Screen,Urine Stat Lab 10/29/24 18:35 Ordered Lactate (Lactic Acid) Stat Lab 10/29/24 19:21 Completed Lipase Stat Lab 10/29/24 19:21 Completed Magnesium Stat Lab 10/29/24 19:21 Completed Partial Thromboplastin Time Stat Lab 10/29/24 19:21 Completed Phosphorous Stat Lab 10/29/24 20:37 Ordered Procalcitonin Stat Lab 10/29/24 19:21 Completed Prothrombin Time with INR Stat Lab 10/29/24 19:21 Completed Troponin I Stat Lab 10/29/24 19:21 Completed Urinalysis Stat Lab 10/29/24 18:35 Ordered Urine Culture Stat Lab 10/29/24 18:35 Ordered VBG [Venous Blood Gas] Stat Lab 10/29/24 20:37 Ordered Vital Signs Vital signs: Vital Signs Temperature 97.6 F 10/29/24 18:28 Pulse Rate 118 H 10/29/24 18:28 Respiratory Rate 18 10/29/24 18:28 Blood Pressure 133/82 H 10/29/24 18:28 Pulse Oximetry (%) 98 10/29/24 18:28 Oxygen Delivery Method Room Air 10/29/24 18:28 Skin / Abscess / Foreign Body MDM Narrative MDM Narrative:: Scribe Attestation: I, Shashank Cheung am scribing for and in the presence of Dr. Gates. Provider Notation: Although this document has been carefully reviewed, there may still be some phonetic and other typographical errors. These errors are purely grammatical due to imperfections in the software program and should not be construed in any way to compromise the substance of the patient's medical care during this visit. Patient data External records reviewed:: [facility] previous records Discharge Plan Prescriptions/Referrals Prescriptions/Med Rec: No Action (DME) Accu-Chek Guide test strips Strip See Rx Instructions .Route Qty: 100 0RF Rx Instructions: As directed (DME) lancets [OneTouch UltraSoft 2 Lancet] 30 gauge misc See Rx Instructions .Route Qty: 200 0RF Rx Instructions: As directed (DME) pen needle, diabetic [Comfort EZ Pen [place]] 33 gauge x 5/32 needle See Rx Instructions .Route Qty: 100 5RF Rx Instructions: Use TID and PRN as directed bupropion HCl 150 mg tablet sustained-release 12 hr 150 mg PO BID Qty: 60 2RF testosterone cypionate 200 mg/mL oil 200 mg IM QMONTH MDD n/a Qty: 1 5RF (DME) Dexcom G7 Sensor Device See Rx Instructions .Route Qty: 1 0RF Rx Instructions: As directed insulin lispro 100 unit/mL insulin pen 20 unit subcut TID Qty: 15 1RF Rx Instructions: 20 units with meals Zepbound 2.5 mg/0.5 mL pen injector 2.5 mg subcut QWEEK Qty: 2 0RF Rx Instructions: for 4 weeks gabapentin 300 mg capsule 300 mg PO TID MDD 900 mg Qty: 90 2RF Rx Instructions: 1 QD x 2 days, then 1 BID x 2 days then 1 TID thereafter lisinopril 5 mg tablet 5 mg PO QDAY 30 Days Qty: 30 3RF metformin 750 mg tablet extended release 24 hr 750 mg PO QDAY Qty: 30 1RF insulin degludec [Tresiba FlexTouch U-200] 200 unit/mL (3 mL) insulin pen 30 unit subcut BID Qty: 9 1RF (DME) FreeStyle Tank 3 Sensor Device See Rx Instructions .Route Qty: 2 3RF Rx Instructions: As directed sucralfate [Carafate] 100 mg/mL suspension 10 ml PO QID Qty: 420 0RF Rx Instructions: swish in mouth and swallow; use after food/drink. 4 times daily hydrocodone-acetaminophen 5-325 mg tablet 1 tab PO Q8H MDD 15 mg PRN (Reason: pain) Qty: 60 0RF doxycycline hyclate 100 mg capsule 100 mg PO BID Qty: 28 0RF pantoprazole [Protonix] 40 mg tablet,delayed release (DR/EC) 40 mg PO BID Qty: 60 0RF Referrals: No Primary/Family,Physician [Primary Care Provider] - In 1 week Patient/Caregiver Discharge Instructions Print Language: Macedonian
--- NOTE | 2024-10-29 21:25 | PD.EDADULT ---
ED General RME/HPI General Chief complaint: Skin/Abscess/Foreign Body Stated complaint: bite from dog, abscess to lower back and left neck Time Seen by Provider: 10/29/24 18:06 Arrival date/time: 10/29/24 17:43 CC: Nausea vomiting neck pain HPI patient has been nausea and vomiting for the past 2 days patient states that he had an abscess on his neck approximately 3 weeks ago popped it, and it drained and now its come back again. The patient is a diabetic does not monitor his sugars. The patient is actively vomiting at the time of the exam. Patient complaining of localized neck pain to the site of the abscess. Related Data Previous Rx's ?Medication ?Instructions ?Recorded gabapentin 300 mg capsule 300 mg PO TID diabetic neuropathy 10/10/23 #90 caps lisinopril 5 mg tablet 5 mg PO QDAY 30 days #30 tabs 11/10/23 pantoprazole 40 mg tablet,delayed 40 mg PO BID #60 tabs 12/27/23 release (Protonix) blood sugar diagnostic (Accu-Chek #100 ea 01/16/24 Guide test strips) lancets 30 gauge (OneTouch #200 ea 03/26/24 UltraSoft 2 Lancet) pen needle, diabetic 33 gauge x #100 ea 06/06/24 (Comfort EZ Pen [place]) blood-glucose sensor (FreeStyle #2 ea 06/13/24 Tank 3 Sensor device) insulin degludec 200 unit/mL (3 30 unit (0.15 mL) subcut BID #9 mL 06/13/24 mL) subcutaneous pen (Tresiba FlexTouch U-200 insulin) metformin 750 mg tablet,extended 750 mg PO QDAY #30 tabs 06/13/24 release 24 hr bupropion HCl 150 mg tablet,12 hr 150 mg PO BID #60 ea 08/01/24 sustained-release testosterone cypionate 200 mg/mL 200 mg IM QMONTH hypogonadism #1 mL 08/01/24 intramuscular oil sucralfate 100 mg/mL oral 10 ml PO QID #420 mL 08/15/24 suspension (Carafate) blood-glucose sensor (Dexcom G7 #1 ea 09/26/24 Sensor device) insulin lispro 100 unit/mL 20 unit (0.2 mL) subcut TID #15 mL 09/26/24 subcutaneous pen tirzepatide (weight loss) 2.5 2.5 mg (0.5 mL) subcut QWEEK #2 mL 09/26/24 mg/0.5 mL subcutaneous pen injector (Zepbound) doxycycline hyclate 100 mg capsule 100 mg PO BID #28 caps 10/17/24 hydrocodone 5 mg-acetaminophen 325 1 tab PO Q8H PRN pain #60 tabs 10/17/24 mg tablet Allergies Allergy/AdvReac Type Severity Reaction Status Date / Time No Known Allergies Allergy Verified 10/29/24 17:48 Review of Systems Review of Systems Narrative Review of Systems: GEN: No fever, no chills, no weight loss EYES: No discharge, no visual changes, no pain HEENT: No ear pain, no congestion, no sore throat, +neck pain PULM: No shortness of breath, no cough, no congestion CV: No chest pain, no dyspnea on exertion, no palpitations GI: + nausea, + vomiting, no diarrhea, no pain, no constipation : No frequency, no urgency, no dysuria MUSC/SKEL: No joint pain, no back pain SKIN: No rash PSYCH: No hallucinations, no depression HEME/LYMPH: No easy bleeding or bruising tendencies NEURO: No weakness, no headache Past Medical History Past Medical History NEUROLOGIC: Negative Neurological Disorders or Seizures CARDIAC: Positive Cardiac Disorders, Hypercholesterolemia and Hypertension; Negative Congestive Heart Failure RESPIRATORY: Negative Chronic Obstructive Pulmonary Disease (COPD) or Asthma GASTROINTESTINAL: Negative Gastrointestinal Disorders GENITOURINARY: Negative Genitourinary Disorders or Renal Disease MUSCULOSKELETAL: Negative Musculoskeletal Disorders ENDOCRINE: Positive Endocrine Disorders and Diabetes Mellitus Type 2; Negative Diabetes Mellitus Type 1 HEMATOLOGIC: Negative Blood Disorders or Sickle Cell Disease PSYCHO/SOCIAL: Positive Depression and Anxiety OTHER HISTORY: Positive Falls; Negative Blood Transfusions, Anesthesia Reactions or Cancer Surgical History SURGICAL: Positive Tonsillectomy Social History SMOKING STATUS: Current some day smoker SUBSTANCE USE: does not use ED Exam Narrative Physical exam: [General: In moderate discomfort but not in any acute distress, active vomiting Head normocephalic HEENT: Within acceptable limits Neck is supple nontender Chest equal chest rise nontender to palpation Respiratory: Clear to auscultation no wheezes crackles or rubs CV: Rate rhythm is regular, tachycardic, no murmurs rubs or clicks Abdomen is soft nontender no masses positive bowel sounds all 4 quadrants Back: No CVA tenderness no spinous process tenderness from cervical spine thoracic and lumbar spine Skin: Erythematous warm to touch bulging at the base of the neck posterior left, no indurated center. Bite wounds to the left lower back are completely healed with no surrounding erythema or edema. Otherwise skin is intact no petechiae rash induration ulceration or crepitus Extremities: Moving all extremity against resistance cap refill less than 2 seconds neurosensory intact Neuro: Awake alert oriented x3 Glascow coma 15 no focal deficits] Course Quality Measures none Orders Category Date Time Status Admit to Inpatient Status Routine Admission 10/29/24 22:09 Active Patient Condition Routine Admission 10/29/24 22:09 Ordered Bedrest ONCE Care 10/29/24 22:04 Active Bedside Blood Glucose Q1H Care 10/29/24 22:[address] Screening NOW Care 10/29/24 18:36 Active General Ledger Accountant Q4H Care 10/29/24 22:04 Active Continuous Pulse Oximetry STAT Care 10/29/24 18:35 Active DKA Protocol QSHIFT Care 10/29/24 22:04 Active EKG (ED ONLY) *Do not use* NOW Care 10/29/24 18:35 Completed Insert IV NOW Care 10/29/24 18:37 Active Intake and Output Q1H Care 10/29/24 22:15 Ordered Intake and Output Q1H Care 10/29/24 23:15 Ordered NPO NOW Care 10/29/24 22:04 Active Notify provider NEEDED Care 10/29/24 22:04 Active Saline [Insert IV] NOW Care 10/29/24 21:18 Active Referral Registered Dietitian Routine Cons 10/29/24 22:04 Active Diet NPO (NOW) Diet 10/29/24 22:[address] soft tissue neck w con Stat Exams 10/29/24 18:36 Completed EKG (ED Only) Stat Exams 10/29/24 18:35 Draft B-Type Natriuretic Peptide Stat Lab 10/29/24 19:21 Completed Beta Hydroxybutyrate Stat Lab 10/29/24 21:54 Completed Blood Culture (Lab) Stat Lab 10/29/24 19:21 Received CBC AM DRAW Lab 10/30/24 05:00 Ordered CBC AM DRAW Lab 10/31/24 05:00 Ordered CBC AM DRAW Lab 11/01/24 05:00 Ordered CBC AM DRAW Lab 11/02/24 05:00 Ordered CBC AM DRAW Lab 11/03/24 05:00 Ordered CBC Stat Lab 10/29/24 19:21 Completed Comprehensive Metabolic Panel Stat Lab 10/29/24 19:21 Completed Drug Screen,Urine Stat Lab 10/29/24 18:35 Ordered Glycohemoglobin w (eAG) AM DRAW Lab 10/30/24 05:00 Ordered Lactate (Lactic Acid) Q4H Lab 10/30/24 02:15 Ordered Lactate (Lactic Acid) Q4H Lab 10/30/24 06:15 Ordered Lactate (Lactic Acid) Q4H Lab 10/30/24 10:15 Ordered Lactate (Lactic Acid) Q4H Lab 10/30/24 14:15 Ordered Lactate (Lactic Acid) Q4H Lab 10/30/24 18:15 Ordered Lactate (Lactic Acid) Q4H Lab 10/30/24 22:15 Ordered Lactate (Lactic Acid) Q4H Lab 10/31/24 02:15 Ordered Lactate (Lactic Acid) Q4H Lab 10/31/24 06:15 Ordered Lactate (Lactic Acid) Q4H Lab 10/31/24 10:15 Ordered Lactate (Lactic Acid) Q4H Lab 10/31/24 14:15 Ordered Lactate (Lactic Acid) Q4H Lab 10/31/24 18:15 Ordered Lactate (Lactic Acid) Q4H Lab 10/31/24 22:15 Ordered Lactate (Lactic Acid) Stat Lab 10/29/24 19:21 Completed Lipase Stat Lab 10/29/24 19:21 Completed Magnesium Q4H Lab 10/30/24 02:15 Ordered Magnesium Q4H Lab 10/30/24 06:15 Ordered Magnesium Q4H Lab 10/30/24 10:15 Ordered Magnesium Q4H Lab 10/30/24 14:15 Ordered Magnesium Q4H Lab 10/30/24 18:15 Ordered Magnesium Q4H Lab 10/30/24 22:15 Ordered Magnesium Q4H Lab 10/31/24 02:15 Ordered Magnesium Q4H Lab 10/31/24 06:15 Ordered Magnesium Q4H Lab 10/31/24 10:15 Ordered Magnesium Q4H Lab 10/31/24 14:15 Ordered Magnesium Q4H Lab 10/31/24 18:15 Ordered Magnesium Q4H Lab 10/31/24 22:15 Ordered Magnesium Stat Lab 10/29/24 19:21 Completed Partial Thromboplastin Time Stat Lab 10/29/24 19:21 Completed Phosphorous Q4H Lab 10/30/24 02:15 Ordered Phosphorous Q4H Lab 10/30/24 06:15 Ordered Phosphorous Q4H Lab 10/30/24 10:15 Ordered Phosphorous Q4H Lab 10/30/24 14:15 Ordered Phosphorous Q4H Lab 10/30/24 18:15 Ordered Phosphorous Q4H Lab 10/30/24 22:15 Ordered Phosphorous Q4H Lab 10/31/24 02:15 Ordered Phosphorous Q4H Lab 10/31/24 06:15 Ordered Phosphorous Q4H Lab 10/31/24 10:15 Ordered Phosphorous Q4H Lab 10/31/24 14:15 Ordered Phosphorous Q4H Lab 10/31/24 18:15 Ordered Phosphorous Q4H Lab 10/31/24 22:15 Ordered Phosphorous Stat Lab 10/29/24 21:54 Completed Procalcitonin Stat Lab 10/29/24 19:21 Completed Prothrombin Time with INR Stat Lab 10/29/24 19:21 Completed Renal Function Panel Q4 Lab 10/30/24 02:15 Ordered Renal Function Panel Q4 Lab 10/30/24 06:15 Ordered Renal Function Panel Q4 Lab 10/30/24 10:15 Ordered Renal Function Panel Q Lab 10/30/24 14:15 Ordered Renal Function Panel Q4 Lab 10/30/24 18:15 Ordered Renal Function Panel Q4 Lab 10/30/24 22:15 Ordered Renal Function Panel Q4 Lab 10/31/24 02:15 Ordered Renal Function Panel Q4 Lab 10/31/24 06:15 Ordered Renal Function Panel Q4 Lab 10/31/24 10:15 Ordered Renal Function Panel Q4 Lab 10/31/24 14:15 Ordered Renal Function Panel Q4 Lab 10/31/24 18:15 Ordered Renal Function Panel Q4 Lab 10/31/24 22:15 Ordered Troponin I Stat Lab 10/29/24 19:21 Completed Urinalysis Stat Lab 10/29/24 18:35 Ordered Urine Culture Stat Lab 10/29/24 18:35 Ordered VBG [Venous Blood Gas] Stat Lab 10/29/24 21:54 Completed Acetaminophen Tab [Tylenol ES Tab] Med 10/29/24 22:13 Active 1,000 mg PO Q6HR PRN Acetaminophen Tab [Tylenol Tab] Med 10/29/24 22:08 Active 1,000 mg PO Q4HR PRN Dextrose 5%-Lactated Ringers [D5-Lr] 1,000 ml Med 10/29/24 22:04 Active Pot Chl Additive [KCl Additive] 40 meq IV 250 mls/hr Dextrose 5%-Lactated Ringers [D5-Lr] 1,000 ml Med 10/29/24 22:04 Active IV 250 mls/hr Dextrose 50% Syr [D50w Syringe Abboject] Med 10/29/24 22:04 Active 25 ml IV PRNMRX1 PRN Heparin Inj Med 10/30/24 09:00 Active 5,000 unit SC Q12HR Insulin Reg 100 Units/100 ml [Myxredlin] Med 10/29/24 21:36 Active 100 unit in 100 ml IV 0.1 unit/kg/hr KCL 20 mEq/L in D5-LR Med 10/29/24 22:04 Active 20 meq in 1,000 ml IV 250 mls/hr Magnesium Sulfate 2 GM Ivpb [Magnesium Sulfate Ivpb] Med 10/29/24 22:04 Active 2 gm in 50 ml IV 25 mls/hr Ondansetron Inj [Zofran Inj] Med 10/29/24 22:08 Active 4 mg IV Q8HR PRN POT PHOS 15 mMol in NS 250 ML [Pot Phos 15 mMol in NS Med 10/29/24 22:04 Active 250 ml] 15 mmol in 250 ml IV PRN POTASSIUM CHL 10 mEq IVPB [Kcl Ivpb] Med 10/29/24 22:04 Active 10 meq in 100 ml IV 100 mls/hr POTASSIUM CHL 10 mEq IVPB [Kcl Ivpb] Med 10/29/24 22:04 Active 10 meq in 100 ml IV PRN Pantoprazole [Protonix] Med 10/30/24 09:00 Active 40 mg PO QDAY Piper/Tazo Inj [Zosyn Inj] 3.375 gm Med 10/29/24 21:18 Discontinued Sodium Chloride 0.9% (P) [Ns 0.9% (P)] 50 ml IV X1 Pre-Mixed [Pre-mixed Bag] 1 bag Med 10/29/24 22:04 Active Insulin Reg 100 Units/100 ml [Myxredlin] 100 unit IV 0.1 unit/kg/hr Ringers Lactated 1000 ml [Lactated Ringers] 1,000 ml Med 10/29/24 22:04 Active Pot Chl Additive [KCl Additive] 20 meq IV 250 mls/hr Ringers Lactated 1000 ml [Lactated Ringers] 1,000 ml Med 10/29/24 22:04 Active Pot Chl Additive [KCl Additive] 40 meq IV 250 mls/hr Ringers Lactated 1000 ml [Lactated Ringers] 1,000 ml Med 10/29/24 22:04 Active IV 250 mls/hr Sodium Bicarb 8.4% SYR Med 10/29/24 22:04 Active 50 ml IV PRN PRN Sodium Chloride 0.9% 1000 ml [Ns] 1,000 ml Med 10/29/24 21:20 Discontinued IV 999 mls/hr Sodium Chloride 0.9% 1000 ml [Ns] 1,000 ml Med 10/29/24 21:20 Discontinued IV 999 mls/hr Sodium Chloride 0.9% 1000 ml [Ns] 1,000 ml Med 10/29/24 21:20 Discontinued IV 999 mls/hr Sodium Chloride 0.9% 250 ml [Ns] 250 ml Med 10/29/24 22:04 Active Sod Phos Additive [NaPhos Additive] 15 mmol IV 62.5 mls/hr Code Status Routine Oth 10/29/24 22:08 Ordered EKG (RT) Routine RT 10/29/24 22:06 Ordered Oxygen Delivery PRN RT 10/29/24 22:09 Active Vital Signs Vital signs: Vital Signs Temperature 97.6 F 10/29/24 18:28 Pulse Rate 118 H 10/29/24 18:28 Respiratory Rate 18 10/29/24 18:28 Blood Pressure 133/82 H 10/29/24 18:28 Pulse Oximetry (%) 98 10/29/24 18:28 Oxygen Delivery Method Room Air 10/29/24 18:28 [facility] Patient data External records reviewed:: [facility] previous records Clinical information provided by:: patient Social determinants that could affect healthcare access:: none Patient has the following chronic illnesses:: Diabetes poorly managed How is presenting disease/condition affected by chronic disease/condition?: exacerbated by Evaluation data The following diagnostics were reviewed and interpreted by me:: lab results and radiology exam(s) Lab and/or radiology exams considered but not ordered:: EKG performed at 1841 shows a ventricular 130 [place] interval 146 QRS of 9 7 QTc of 479 sinus tachycardia left axis deviation. CBC shows leukocytosis 24.6 H&H of 14.7 and 44.3 respectively platelets of 298 CMP is significantly abnormal with a sodium of 126 potassium of 5.4 chloride of 94 CO2 of less than 10 BUN of 26 creatinine 1.8 glucose of 495. Coags within acceptable limits Troponin and BNP within acceptable limits Lipase 29 Pro-Dru at 0.[address] of the neck shows the patient has a well-defined neck abscess it is 5 x 4 x 5 cm. Interpretation Summary: Calculated gap between 27 and 37. DKA with neck abscess. Patient's case clinical presentation laboratory findings were discussed with Dr. Mixon resident, who agrees to accept the patient for admission to the intensive care unit. Patient is agreement with the plan Medications Medications considered but not ordered:: None Medication administrations:: Medication Administration History Acetaminophen (Acetaminophen 325 Mg Tablet) 1,000 mg PO Q4HR PRN PRN Reason: PAIN SCALE 1-3 (mild Stop: 11/28/24 22:07 Acetaminophen (Acetaminophen 500 Mg Tablet) 1,000 mg PO Q6HR PRN PRN Reason: FEVER > 101 Stop: 11/28/24 22:12 Dextrose (Dextrose 50%-Water Inj 50 Ml Syringe) 25 ml IV PRNMRX1 PRN PRN Reason: Blood Sugar - Low Heparin Sodium (Porcine) (Heparin Sod Inj 5000 Unit/Ml Vial) 5,000 unit SC Q12HR [facility] Stop: 11/13/24 08:59 Insulin Human Regular (Myxredlin) 100 unit in 100 mls @ 9.843 mls/hr IV .[id number] PRN; Protocol PRN Reason: PER PROTOCOL Stop: 11/28/24 21:35 Last Admin: 10/29/24 22:07 Dose: 0.1 unit/kg/hr, 9.843 mls/hr Documented By: TYRESE Co-signed By: SIMON Potassium Chloride (Kcl Ivpb) 10 meq in 100 mls @ 100 mls/hr IV .Q1H PRN PRN Reason: IF POTASSIUM LESS THAN 3.3 Stop: 11/28/24 22:03 Magnesium Sulfate (Magnesium Sulfate Ivpb) 2 gm in 50 mls @ 25 mls/hr IV .Q2H PRN PRN Reason: PER DKA PROTOCOL Stop: 11/28/24 22:03 Insulin Human Regular 100 unit (/ IV Miscellaneous Supplies) 100 mls @ 9.843 mls/hr IV .[id number] PRN; Protocol PRN Reason: PER PROTOCOL Stop: 11/28/24 22:03 Dextrose/Lactated Ringer's (D5-Lr) 1,000 mls @ 250 mls/hr IV .Q4H PRN PRN Reason: PER PROTOCOL Stop: 11/28/24 22:03 Lactated Ringer's (Lactated Ringers) 1,000 mls @ 250 mls/hr IV .Q4H PRN PRN Reason: PER PROTOCOL Stop: 10/30/24 22:03 Potassium Chloride 20 meq/ (Lactated Ringer's) 1,010 mls @ 250 mls/hr IV .Q4H3M PRN PRN Reason: K LEVEL 3.3 TO 5.3mM/L Stop: 11/28/24 22:03 Potassium Chloride 40 meq/ (Lactated Ringer's) 1,020 mls @ 250 mls/hr IV .Q4H5M PRN PRN Reason: K LEVEL < 3.3 mM/L Stop: 11/28/24 22:03 Potassium Chloride 40 meq/ (Dextrose/Lactated Ringer's) 1,020 mls @ 250 mls/hr IV .Q4H5M PRN PRN Reason: K LEVEL < 3.3mM/L Stop: 11/28/24 22:03 Potassium Cl/Dextrose/Lact Ringer's (Kcl 20 Meq/L In D5-Lr) 20 meq in 1,000 mls @ 250 mls/hr IV .Q4H PRN PRN Reason: K LEVEL 3.3 TO 5.3 mM/L Stop: 11/28/24 22:03 Potassium Chloride (Kcl Ivpb) 10 meq in 100 mls @ 50 mls/hr IV PRN PRN PRN Reason: K LEVEL 3.3 to 5.3 & BG > 200 Stop: 11/28/24 22:03 Potassium Phosphate (Pot Phos 15 Mmol In Ns 250 Ml) 15 mmol in 250 mls @ 62.5 mls/hr IV PRN PRN PRN Reason: Phosphate <= 1mg/dL Stop: 11/28/24 22:03 Sodium Phosphate 15 mmol/ (Sodium Chloride) 255 mls @ 62.5 mls/hr IV .Q4H5M PRN PRN Reason: Phosphate <= 1mg/dL and K> than 5.3 Stop: 11/28/24 22:03 Ondansetron HCl (Ondansetron Inj 2 Mg/Ml Inj 2 Ml) 4 mg IV Q8HR PRN PRN Reason: NAUSEA OR VOMITING Stop: 11/28/24 22:07 Pantoprazole Sodium (Pantoprazole 40 Mg Tablet) 40 mg PO QDAY ALIX Stop: 11/29/24 08:59 Sodium Bicarbonate (Sodium Bicarb Inj 8.4% Syr 50 Ml Syringe) 50 ml IV PRN PRN PRN Reason: For ph <= to 7.0 Stop: 11/28/24 22:03 Discontinued Medications Sodium Chloride (Ns) 1,000 mls @ 999 mls/hr IV .Q1H1M ONE Stop: 10/29/24 22:20 Last Admin: 10/29/24 21:38 Dose: 999 mls/hr Documented By: PARK Sodium Chloride (Ns) 1,000 mls @ 999 mls/hr IV .Q1H1M ONE Stop: 10/29/24 22:20 Last Admin: 10/29/24 21:38 Dose: 999 mls/hr Documented By: PARK Sodium Chloride (Ns) 1,000 mls @ 999 mls/hr IV .Q1H1M ONE Stop: 10/29/24 22:20 Last Admin: 10/29/24 21:38 Dose: 999 mls/hr Documented By: PARK Piperacillin Sod/Tazobactam (Sod 3.375 gm/ Sodium Chloride) 50 mls @ 100 mls/hr IV X1 ONE Stop: 10/29/24 21:47 Last Infusion: 10/29/24 22:10 Dose: Infused Documented By: Admin: 10/29/24 21:38 Dose: 100 mls/hr Documented By: PARK None Consultations Consultation(s) initiated? (list below): No Diagnosis Differential Diagnosis ED Complaint MDM: DKA neck abscess hyperglycemia Most likely diagnosis given after review of the tests above:: DKA neck abscess Admission Indicated Admission indicated?: indicated Explain why admission is indicated or not indicated:: Further medical management Admission Request Was there a request for admission?: No Disposition Plan Disposition Plan: Admit Medical Decision Making Differential Diagnosis Differential Diagnosis: DKA neck abscess hyperglycemia Lab Data 10/29/24 19:21 10/29/24 19:21 Labs: Lab Results 10/29/24 10/29/24 Range/Units 19:21 21:54 WBC 24.6 H (3.8-10.6) Thou/mm3 RBC 5.32 (4.50-5.90) Miln/mm3 Hgb 14.7 (13.5-16.0) g/dL Hct 44.3 (41.0-53.0) % MCV 83 (80-100) fL MCH 27.6 (25.0-35.0) pg MCHC 33.2 (31.0-37.0) g/dl RDW Std Deviation 41.1 (35.1-43.9) fL Plt Count 298 (140-440) Thou/mm3 Neut % (Auto) 85 H (37-80) % Lymph % (Auto) 4 L (10-50) % [place] % (Auto) 9 (0-12) % Eos % (Auto) 0 (0-10) % Baso % (Auto) 0 (0-2.5) % Neut # (Auto) 20.8 H (1.8-7.7) Thou/mm3 Lymph # (Auto) 1.1 (1.0-4.8) Thou/mm3 [place] # (Auto) 2.3 H (0.0-0.8) Thou/mm3 Eos # (Auto) 0.0 (0.0-0.5) Thou/mm3 Baso # (Auto) 0.1 (0.0-0.2) Thou/mm3 Immature Gran # (Auto) 0.39 H (0.00-0.00) Thou/mm3 Absolute Nucleated RBC 0.00 (0.00-0.00) Thou/mm3 Immature Gran % 2 H (0-0) % Nucleated RBC % 0 (0) /100 WBC PT 11.2 (9.0-12.2) Seconds INR 1.0 (0.9-1.3) APTT 36.9 H (22.0-36.0) Seconds VBG pH 7.12 L (7.33-7.66) VBG pCO2 22 L (36-56) mmHg VBG pO2 54 (15-58) mmHg VBG O2 Sat (Eliseo) 87 L (96-97) % VBG Base Excess -20 L (-3-3) Sodium 126 L (136-145) mMol/L Potassium 5.4 H (3.4-5.1) mMol/L Chloride 94 L (98-107) mMol/L Carbon Dioxide < 10.0 L* (20.0-31.0) mMol/L Anion Gap 22 H (7-16) BUN 26 H (9-23) mg/dL Creatinine 1.8 H (0.6-1.3) mg/dL Estim Creat Clear Calc 65.6 (>60) mL/min eGFR 48 L (60 - ) See Note BUN/Creatinine Ratio 14 (12-20) Ratio Glucose 495 H* (74-106) mg/dL Calculated Osmolality 280 (275-295) Lactic Acid 1.4 (0.4-2.0) mMol/L Calcium 10.1 (8.3-10.6) mg/dL Corrected Calcium 10.1 (8.5-10.1) mg/dL Phosphorus 3.5 (2.4-5.1) mg/dL Magnesium 2.0 (1.6-2.6) mg/dL Total Bilirubin 0.3 (0.3-1.2) mg/dL AST < 8 (0-34) U/L ALT 13 (10-49) U/L Alkaline Phosphatase 134 H (46-116) U/L Troponin I < 0.002 (0.0-0.045) ng/mL B-Natriuretic Peptide < 20 (0-100) pg/mL Total Protein 7.9 (5.7-8.2) gm/dL Albumin 4.9 (3.5-5.0) gm/dL Globulin 3.0 (2.3-3.5) gm/dL Albumin/Globulin Ratio 1.6 (1.2-2.2) Lipase 29 (12-53) U/L Beta-Hydroxybutyrate/Acetoacetate 5.3 H (<0.6) mmol/L Procalcitonin 0.17 (0.0-0.49) ng/ml Discharge Plan Plan Patient Disposition: Admit Acute Care w/in Hospital Patient condition on transfer: Stable Prescriptions/Referrals Prescriptions/Med Rec: No Action (DME) Accu-Chek Guide test strips Strip See Rx Instructions .Route Qty: 100 0RF Rx Instructions: As directed (DME) lancets [OneTouch UltraSoft 2 Lancet] 30 gauge misc See Rx Instructions .Route Qty: 200 0RF Rx Instructions: As directed (DME) pen needle, diabetic [Comfort EZ Pen [place]] 33 gauge x 5/32 needle See Rx Instructions .Route Qty: 100 5RF Rx Instructions: Use TID and PRN as directed bupropion HCl 150 mg tablet sustained-release 12 hr 150 mg PO BID Qty: 60 2RF testosterone cypionate 200 mg/mL oil 200 mg IM QMONTH MDD n/a Qty: 1 5RF (DME) Dexcom G7 Sensor Device See Rx Instructions .Route Qty: 1 0RF Rx Instructions: As directed insulin lispro 100 unit/mL insulin pen 20 unit subcut TID Qty: 15 1RF Rx Instructions: 20 units with meals Zepbound 2.5 mg/0.5 mL pen injector 2.5 mg subcut QWEEK Qty: 2 0RF Rx Instructions: for 4 weeks gabapentin 300 mg capsule 300 mg PO TID MDD 900 mg Qty: 90 2RF Rx Instructions: 1 QD x 2 days, then 1 BID x 2 days then 1 TID thereafter lisinopril 5 mg tablet 5 mg PO QDAY 30 Days Qty: 30 3RF metformin 750 mg tablet extended release 24 hr 750 mg PO QDAY Qty: 30 1RF insulin degludec [Tresiba FlexTouch U-200] 200 unit/mL (3 mL) insulin pen 30 unit subcut BID Qty: 9 1RF (DME) FreeStyle Tank 3 Sensor Device See Rx Instructions .Route Qty: 2 3RF Rx Instructions: As directed sucralfate [Carafate] 100 mg/mL suspension 10 ml PO QID Qty: 420 0RF Rx Instructions: swish in mouth and swallow; use after food/drink. 4 times daily hydrocodone-acetaminophen 5-325 mg tablet 1 tab PO Q8H MDD 15 mg PRN (Reason: pain) Qty: 60 0RF doxycycline hyclate 100 mg capsule 100 mg PO BID Qty: 28 0RF pantoprazole [Protonix] 40 mg tablet,delayed release (DR/EC) 40 mg PO BID Qty: 60 0RF Referrals: No Primary/Family,Physician [Primary Care Provider] - In 1 week Problem List Clinical Impression: DKA (diabetic ketoacidosis), Abscess, neck Patient/Caregiver Discharge Instructions Print Language: [place] Stand Alone Forms: Frida Award Info., Patient Portal Info Letter PA/ACCOUNT EXECUTIVE KEY ACCOUNTS Supervising Physician PA/ACCOUNT EXECUTIVE KEY ACCOUNTS Supervising Physician: Jordyn Monroe ENP
[2024-10-29] MEDS: SODIUM CHLORIDE 0.9% 1000 ML 1,000 ML 999 ML IV ×3 (21:38)
[2024-10-29] MEDS: PIPER/TAZO INJ 3.375 GM in SODIUM CHLORIDE 0.9% (P) 50 ML IV (21:38)
[2024-10-29 22:06] LABS: Base Excess, Venous -20 (-3-3); O2 Saturation, Venous 87 % (96-97); PCO2, Venous 22 mmHg (36-56); PO2, Venous 54 mmHg (15-58); pH, Venous 7.12 (7.33-7.66)
[2024-10-29] MEDS: INSULIN REG 100 UNITS/100 ML 100 UNIT/100 ML BAG 9.843 UNIT IV (22:07)
--- NOTE | 2024-10-29 22:14 | PD.RESHP ---
Documentation for date of: 10/29/24 HPI History of Present Illness History of present illness: Mr. Dank Meier is a 39 year old male with a a past medical history significant for left knee ACL rupture, hyperlipidemia, hypertension, and IDDM who presented to the ED with a CC of nausea and vomiting of 2 days duration. Patient notes he was bit by a dog 1 month prior and has since had multiple abscess in his right arm pit and on his neck. Patient notes that he has also had neck pain from an abcess on the back of his neck which began 3 weeks prior to presentation. It initially grew in size until he manually popped it. Since then it has progressively grew in size. 2 days prior to presentation he began to experience progressively worsening nausea and non-bilious non-bloody vomiting for which he presented to the ED on 10/29/2024. ED course: In the ED the patient's vitals were initially Within normal limits except for a pulse of 118. Lab data was significant for a elevated WBC of 24,600 on CBC. VBG revealed a pH of 7.12/pCO2 22 and bicarb on CMP was less than 10. CMP also revealed a sodium of 126, potassium 5.4 chloride 94 anion gap 22 BUN/CR 26 and 1.8 respectively with baseline creatinine 0.8 indicating an DYLON in the setting of DKA. Glucose 495. Isolated elevation of alkaline phosphatase of 134. Beta hydroxybutyrate of 5.3 consistent with DKA. Imaging including a CT with contrast revealed a subcutaneous soft tissue abscess on the left posterior neck measuring 5.4 x 3.7 x 4.8 cm in dimension. EKG showed sinus tachycardia. The patient was administered 3 L of NS administered epic son/tazobactam for his neck abscess. He was started on the insulin drip for DKA and was subsequently admitted to the ICU for continued management and treatment. Review of Systems Review of Systems Systems Reviewed: All systems reviewed, normal except as documented Past Medical History Past Medical History NEUROLOGIC: Negative Neurological Disorders or Seizures CARDIAC: Positive Cardiac Disorders, Hypercholesterolemia and Hypertension; Negative Congestive Heart Failure RESPIRATORY: Negative Chronic Obstructive Pulmonary Disease (COPD) or Asthma GASTROINTESTINAL: Negative Gastrointestinal Disorders GENITOURINARY: Negative Genitourinary Disorders or Renal Disease MUSCULOSKELETAL: Negative Musculoskeletal Disorders ENDOCRINE: Positive Endocrine Disorders and Diabetes Mellitus Type 2; Negative Diabetes Mellitus Type 1 HEMATOLOGIC: Negative Blood Disorders or Sickle Cell Disease PSYCHO/SOCIAL: Positive Depression and Anxiety OTHER HISTORY: Positive Falls; Negative Blood Transfusions, Anesthesia Reactions or Cancer Surgical History SURGICAL: Positive Tonsillectomy Social History SMOKING STATUS: Current some day smoker SUBSTANCE USE: does not use Exam Vital Signs Temp Pulse Resp BP Pulse Ox O2 Del Method 97.6 F 118 H 18 133/82 H 98 Room Air 10/29/24 18:28 10/29/24 18:28 10/29/24 18:28 10/29/24 18:28 10/29/24 18:28 10/29/24 18:28 Narrative Exam General: Not in any visible or apparent acute distress, sick appearing, alert, pleasant and interactive HEENT: NC/AT, PERRL, EOMI, good conjugate gaze, dry mucous membranes, oropharynx clear, trachea appears midline, no gross LAD Neck: Supple, full ROM, erythema with notable abscess on left posterior neck with pain elicited on palpation CVS: S1S2 Regular rate and rhythm, No murmurs, rubs or gallops Lungs: Normal respiratory effort, no wheezing rhonchi or rales, CTAB Abd: Soft, no tenderness to palpation, no guarding, +BS, no organomegaly Ext: No edema, warm well perfused, normal tone and ROM, strength and sensation intact, cap refill less than 2, +2 dp equal bilaterally Skin: Notable for erythema consistent with skin and soft tissue infection on left posterior aspect of neck Neuro: AOx3,no gross focal neurological deficits noted Lines: PIV: 18 guage left and right AC Cox: No Drips: Insulin gtt Results: Labs 10/29/24 19:21 10/30/24 01:54 Labs: Short CBC 10/29/24 Range/Units 19:21 WBC 24.6 H (3.8-10.6) Thou/mm3 Hgb 14.7 (13.5-16.0) g/dL Hct 44.3 (41.0-53.0) % Plt Count 298 (140-440) Thou/mm3 BMP 10/29/24 19:21 Sodium 126 L Potassium 5.4 H Chloride 94 L Carbon Dioxide < 10.0 L* BUN 26 H Creatinine 1.8 H Glucose 495 H* Calcium 10.1 Cardiac Enzymes 10/29/24 Range/Units 19:21 Troponin I < 0.002 (0.0-0.045) ng/mL Liver Function 10/29/24 Range/Units 19:21 Total Bilirubin 0.3 (0.3-1.2) mg/dL AST < 8 (0-34) U/L ALT 13 (10-49) U/L Alkaline Phosphatase 134 H (46-116) U/L Albumin 4.9 (3.5-5.0) gm/dL Quality Measures Quality Measures VTE prophylaxis Medications Home Medications and Allergies Allergies Allergy/AdvReac Type Severity Reaction Status Date / Time No Known Allergies Allergy Verified 10/29/24 17:48 Visit Medications Acetaminophen (Acetaminophen 325 Mg Tablet) 1,000 mg PO Q4HR PRN PRN Reason: PAIN SCALE 1-3 (mild Stop: 11/28/24 22:07 Acetaminophen (Acetaminophen 500 Mg Tablet) 1,000 mg PO Q6HR PRN PRN Reason: FEVER > 101 Stop: 11/28/24 22:12 Dextrose (Dextrose 50%-Water Inj 50 Ml Syringe) 25 ml IV [id number] PRN PRN Reason: Blood Sugar - Low Heparin Sodium (Porcine) (Heparin Sod Inj 5000 Unit/Ml Vial) 5,000 unit SC Q12HR ALIX Stop: 11/13/24 08:59 Sodium Chloride (Ns) 1,000 mls @ 999 mls/hr IV .Q1H1M ONE Stop: 10/29/24 22:20 Last Admin: 10/29/24 21:38 Dose: 999 mls/hr Sodium Chloride (Ns) 1,000 mls @ 999 mls/hr IV .Q1H1M ONE Stop: 10/29/24 22:20 Last Admin: 10/29/24 21:38 Dose: 999 mls/hr Sodium Chloride (Ns) 1,000 mls @ 999 mls/hr IV .Q1H1M ONE Stop: 10/29/24 22:20 Last Admin: 10/29/24 21:38 Dose: 999 mls/hr Insulin Human Regular (Myxredlin) 100 unit in 100 mls @ 9.843 mls/hr IV .[id number] PRN; Protocol PRN Reason: PER PROTOCOL Stop: 11/28/24 21:35 Last Admin: 10/29/24 22:07 Dose: 0.1 unit/kg/hr, 9.843 mls/hr Potassium Chloride (Kcl Ivpb) 10 meq in 100 mls @ 100 mls/hr IV .Q1H PRN PRN Reason: IF POTASSIUM LESS THAN 3.3 Stop: 11/28/24 22:03 Magnesium Sulfate (Magnesium Sulfate Ivpb) 2 gm in 50 mls @ 25 mls/hr IV .Q2H PRN PRN Reason: PER DKA PROTOCOL Stop: 11/28/24 22:03 Insulin Human Regular 100 unit (/ IV Miscellaneous Supplies) 100 mls @ 9.843 mls/hr IV .[id number] PRN; Protocol PRN Reason: PER PROTOCOL Stop: 11/28/24 22:03 Dextrose/Lactated Ringer's (D5-Lr) 1,000 mls @ 250 mls/hr IV .Q4H PRN PRN Reason: PER PROTOCOL Stop: 11/28/24 22:03 Lactated Ringer's (Lactated Ringers) 1,000 mls @ 250 mls/hr IV .Q4H PRN PRN Reason: PER PROTOCOL Stop: 10/30/24 22:03 Potassium Chloride 20 meq/ (Lactated Ringer's) 1,010 mls @ 250 mls/hr IV .Q4H3M PRN PRN Reason: K LEVEL 3.3 TO 5.3mM/L Stop: 11/28/24 22:03 Potassium Chloride 40 meq/ (Lactated Ringer's) 1,020 mls @ 250 mls/hr IV .Q4H5M PRN PRN Reason: K LEVEL < 3.3 mM/L Stop: 11/28/24 22:03 Potassium Chloride 40 meq/ (Dextrose/Lactated Ringer's) 1,020 mls @ 250 mls/hr IV .Q4H5M PRN PRN Reason: K LEVEL < 3.3mM/L Stop: 11/28/24 22:03 Potassium Cl/Dextrose/Lact Ringer's (Kcl 20 Meq/L In D5-Lr) 20 meq in 1,000 mls @ 250 mls/hr IV .Q4H PRN PRN Reason: K LEVEL 3.3 TO 5.3 mM/L Stop: 11/28/24 22:03 Potassium Chloride (Kcl Ivpb) 10 meq in 100 mls @ 50 mls/hr IV PRN PRN PRN Reason: K LEVEL 3.3 to 5.3 & BG > 200 Stop: 11/28/24 22:03 Potassium Phosphate (Pot Phos 15 Mmol In Ns 250 Ml) 15 mmol in 250 mls @ 62.5 mls/hr IV PRN PRN PRN Reason: Phosphate <= 1mg/dL Stop: 11/28/24 22:03 Sodium Phosphate 15 mmol/ (Sodium Chloride) 255 mls @ 62.5 mls/hr IV .Q4H5M PRN PRN Reason: Phosphate <= 1mg/dL and K> than 5.3 Stop: 11/28/24 22:03 Ondansetron HCl (Ondansetron Inj 2 Mg/Ml Inj 2 Ml) 4 mg IV Q8HR PRN PRN Reason: NAUSEA OR VOMITING Stop: 11/28/24 22:07 Pantoprazole Sodium (Pantoprazole 40 Mg Tablet) 40 mg PO QDAY ALIX Stop: 11/29/24 08:59 Sodium Bicarbonate (Sodium Bicarb Inj 8.4% Syr 50 Ml Syringe) 50 ml IV PRN PRN PRN Reason: For ph <= to 7.0 Stop: 11/28/24 22:03 Discontinued Medications Piperacillin Sod/Tazobactam (Sod 3.375 gm/ Sodium Chloride) 50 mls @ 100 mls/hr IV X1 ONE Stop: 10/29/24 21:47 Last Admin: 10/29/24 21:38 Dose: 100 mls/hr Assessment & Plan Plan Assessment: Mr. Dank Meier is a 39 year old male with a a past medical history significant for left knee ACL rupture, hyperlipidemia, hypertension, and IDDM who presented to the ED with a CC of nausea and vomiting of 2 days duration who was found to be in DKA and was subsequently admitted to the ICU for treatment and management. Plan:? Neurological Stable. AAOx4 Cardiology #Tachycardia: Pulse 118 Mostly likely secondary to acidotic state. Will resolve with resolution of DKA #Hypertension Patient currently normotensive -Restart home lisinopril 5mg qday Pulmonary Stable, saturating well iin ambient air Gastrointestinal #Nausea, vomiting, and abdominal pain In the setting of DKA Gastric contents tested positive for blood. -GI PPX: 40 mg Pantoprazole QD -Keep NPO -Zofran PRN for N/V Renal/Genitourinary #Anion Gap Metabolic acidosis: Anion Gap 19, Beta Hydroxybutyrate> 6.4, HCO3 <10 VBG:?pH 7.12/pCO2 22 and bicarb on CMP was less than 10. Lactic acid: 1.4 #Acute Kidney Injury Creatinine: 1.8, elevated from baseline of 0.8 Most likely prerenal in etiology likely secondary to dehydration/poor p.o. intake(decreased renal perfusion) For essential medications that are renally cleared, adjust dosing daily Avoid Iodinated contrast media to prevent contrast induced nephropathy Avoid Gadolinium-based contrast agents to prevent?nephrogenic systemic fibrosis Avoid Nephrotoxic medications and drugs that may have a detrimental effect on glomerular pefusion Continue fluid resuscitation with NS mls/h #Hyponatremia: Sodium 126, most likely pseudohyponatremia, Corrected sodium:135 #Hyperkalemia: Potassium: 5.7 most likely due to extracellular shift, expected to resolve with DKA resolution Endocrine #Diabetic Ketoacidosis: Mostly likely triggered by infection/abscess Blood Glucose: 495, Anion Gap Metabolic acidosis: Anion Gap 22, Beta Hydroxybutyrate> 5.3, HCO3 <10 -Patient was started on insulin drip -Patient started on IVF resusitation -Renal panel Q4H Hematology #Leuckocytosis-? WBC: 24.6, most likely 2/2 abscess/infection Infectious Disease #Skin and soft tissue infection #Abscess, neck Patient with abscess formation on posterior neck. Patient has had multiple abscess in his armpit and on his neck which have drained purulent fluid. He notes the abscesses started forming 1 month prior to presentation after sustaining a dog bite. -Empiric coverage with Clindamycin 600 mg IV q8hr & Ceftriaxone 1 gram qday -Consider I&D for adequate source control Skin #Skin and soft tissue infection as noted above. Health Maintenance Fluids Electrolytes Nutrition: DKA protocol Code Status: Full Code DVT Prophylaxis: Heparin 5000 units SC q8hrs GI Prophylaxis: Pantoprazole Lines/Peripheral IV: 18 guage left and right AC Cox: No Drips: Insulin gtt Disposition:? Patient requires inpatient ICU admission for DKA requiring IV fluids and insulin gtt. Patient's case was discussed with supervising attending physician Dr. Yakelin Mixon M.D. Internal Medicine PGY-3 Attending Provider Attestation/Addendum 39-year-old male patient with type 1 diabetes mellitus, skin abscesses involving the arm and neck area. The patient will be admitted for DKA Patient has leukocytosis, bicarbonate level less than 10. Initial glucose 495. Potassium is elevated at 5.4. The patient is dehydrated with high BUN of 26 And a creatinine level of 1.8. The patient was admitted for IV insulin drip administration. Monitor electrolytes. Treat infection. Discussed with housestaff.
[2024-10-29 22:16] LABS: Beta Hydroxybutyrate 5.3 mmol/L (<0.6)
[2024-10-29 22:32] LABS: Phosphorous 3.5 mg/dL (2.4-5.1)
[2024-10-29] MEDS: RINGERS LACTATED 1000 ML 1,000 ML 250 ML IV (23:00)
[2024-10-29] MEDS: INSULIN REG 100 UNITS/100 ML 100 UNIT in PRE-MIXED 1 BAG 9.843 UNIT IV (23:15)
[2024-10-30] VITALS (30 sets, daily range): BP systolic 95–145; BP diastolic 56–85; PULSE 115–137; RESP 12–99; TEMP 36.6–37.7; O2SAT 95–99; BMI 28.3
[2024-10-30] MEDS: CLINDAMYCIN/NS 600 MG IVPB 600 MG/50 ML BAG 100 MG IV ×4 (01:17→21:49)
[2024-10-30] MEDS: KETOROLAC INJ 60 MG/2 ML VIAL 30 MG IM (01:35)
[2024-10-30] MEDS: ONDANSETRON INJ 2 MG/ML INJ 2 ML 4 MG IV (01:36)
[2024-10-30 02:12] LABS: Lactate (Lactic Acid) 1.5 mMol/L (0.4-2.0)
[2024-10-30 02:40] LABS: Anion Gap 15 (7-16); BUN/Creatinine Ratio 17 Ratio (12-20); Blood Urea Nitrogen 22 mg/dL (9-23); Calcium 9.1 mg/dL (8.3-10.6); Calcium (Corrected) 9.1 mg/dL (8.5-10.1); Chloride 107 mMol/L (98-107); Creatinine (Component) 1.3 mg/dL (0.6-1.3); Estimated Creatinine Clearance 90.9 mL/min (>60); Glucose 247 mg/dL (74-106); Magnesium 1.6 mg/dL (1.6-2.6); Osmolality,Calculated 281 (275-295); Phosphorous 1.7 mg/dL (2.4-5.1); Potassium 3.9 mMol/L (3.4-5.1); Sodium 135 mMol/L (136-145); eGFR > 60 See Note
[2024-10-30 02:43] LABS: Carbon Dioxide 12.7 mMol/L (20.0-31.0)
[2024-10-30] MEDS: Magnesium Sulfate 2 GM Ivpb 2 GM/50 ML BAG IV ×2 (03:18→12:31)
[2024-10-30] MEDS: RINGERS LACTATED 1000 ML 1,000 ML 250 ML IV ×2 (03:28→10:02)
[2024-10-30] MEDS: cefTRIAXone/D5w 1gm IV premix 50 ML IV ×2 (03:29→20:55)
[2024-10-30] MEDS: DEXTROSE 5%-LACTATED RINGERS 1,000 ML 250 ML IV (04:27)
[2024-10-30] MEDS: POTASSIUM CHL 10 mEq IVPB 10 MEQ/100 ML BAG 50 MEQ IV (05:28)
[2024-10-30 07:39] LABS: Basophils % (Auto) 0 % (0-2.5); Eosinophils % (Auto) 0 % (0-10); Hematocrit 36.1 % (41.0-53.0); Hemoglobin 12.6 g/dL (13.5-16.0); Immature Granulocytes % (Auto) 1 % (0-0); Immature Granulocytes Auto 0.16 Thou/mm3 (0.00-0.00); Lymphocytes # (Auto) 0.7 Thou/mm3 (1.0-4.8); Lymphocytes % (Auto) 4 % (10-50); Mean Corpuscular HGB Conc 34.9 g/dl (31.0-37.0); Mean Corpuscular Hemoglobin 27.9 pg (25.0-35.0); Mean Corpuscular Volume 80 fL (80-100); Monocytes # (Auto) 1.5 Thou/mm3 (0.0-0.8); Monocytes % (Auto) 9 % (0-12); Neutrophils # (Auto) 14.9 Thou/mm3 (1.8-7.7); Neutrophils % (Auto) 86 % (37-80); Nucleated Red Blood Cell % 0 /100 WBC (0); Platelet Count 255 Thou/mm3 (140-440); RDW Standard Deviation 39.7 fL (35.1-43.9); Red Blood Count 4.51 Miln/mm3 (4.50-5.90); White Blood Count 17.3 Thou/mm3 (3.8-10.6)
[2024-10-30 08:02] LABS: Albumin, Serum 3.9 gm/dL (3.5-5.0); Anion Gap 12 (7-16); BUN/Creatinine Ratio 19 Ratio (12-20); Blood Urea Nitrogen 21 mg/dL (9-23); Calcium 8.9 mg/dL (8.3-10.6); Carbon Dioxide 16.3 mMol/L (20.0-31.0); Chloride 107 mMol/L (98-107); Creatinine (Component) 1.1 mg/dL (0.6-1.3); Estimated Creatinine Clearance 105.7 mL/min (>60); Glucose 235 mg/dL (74-106); Osmolality,Calculated 281 (275-295); Phosphorous 1.2 mg/dL (2.4-5.1); Potassium 4.3 mMol/L (3.4-5.1); Sodium 135 mMol/L (136-145); eGFR > 60 See Note
[2024-10-30] MEDS: PANTOPRAZOLE 40 MG TABLET PO (08:15)
[2024-10-30] MEDS: HEPARIN SOD INJ 5000 UNIT/ML VIAL SC ×2 (08:15→20:55)
[2024-10-30 08:46] LABS: Glucose Estimated Average 335 mg/dL (80-131); Hemoglobin A1C 13.3 % Hgb (4.8-6.0)
[2024-10-30] MEDS: SOD PHOS ADDITIVE 30 MMOL in SODIUM CHLORIDE 0.9% 500 ML 500 ML 62.5 MMOL IV (09:46)
[2024-10-30 10:20] LABS: Lactate (Lactic Acid) 0.9 mMol/L (0.4-2.0)
[2024-10-30 10:48] LABS: Albumin, Serum 3.9 gm/dL (3.5-5.0); Anion Gap 10 (7-16); BUN/Creatinine Ratio 19 Ratio (12-20); Blood Urea Nitrogen 19 mg/dL (9-23); Calcium (Corrected) 9.1 mg/dL (8.5-10.1); Carbon Dioxide 17.5 mMol/L (20.0-31.0); Chloride 107 mMol/L (98-107); Estimated Creatinine Clearance 116.2 mL/min (>60); Glucose 153 mg/dL (74-106); Magnesium 1.8 mg/dL (1.6-2.6); Osmolality,Calculated 273 (275-295); Phosphorous 1.1 mg/dL (2.4-5.1); Potassium 3.9 mMol/L (3.4-5.1); Sodium 134 mMol/L (136-145); eGFR > 60 See Note
--- NOTE | 2024-10-30 12:14 | ECHO_ITS ---
Transthoracic Echo Report Ht (in): 72 Wt (lb): 209 Exam Location: Portable Status: Inpatient Snuff Grinder And Screener: Viridiana Tellez Indications: Procedure Performed: BP: 137 / 72 HR: 120 Rhythm: Tachycardia Technical Quality: Fair MEASUREMENTS (Male / Female) Normal Values 2D ECHO LV Diastolic Diameter PLAX 3.6 cm 4.2 - 5.9 / 3.9 - 5.3 cm LV Systolic Diameter PLAX 2.6 cm IVS Diastolic Thickness 1.0 cm 0.6 - 1.0 / 0.6 - 0.9 cm LVPW Diastolic Thickness 1.1 cm 0.6 - 1.0 / 0.6 - 0.9 cm LV Relative Wall Thickness 0.6 LVOT Diameter 2.0 cm LA Volume Index 18.3 cm?/m? 16 - 28 cm?/m? Ascending Aorta Diameter 3.0 cm M-MODE Aortic Root Diameter MM 2.6 cm LA Systolic Diameter MM 3.3 cm LA Ao Ratio MM 1.3 AV Cusp Separation MM 2.3 cm DOPPLER AV Peak Velocity 133.0 cm/s AV Peak Gradient 7.1 mmHg AV Mean Gradient 5.0 mmHg AV Velocity Time Integral 22.8 cm LVOT Peak Velocity 120.0 cm/s LVOT Peak Gradient 5.8 mmHg LVOT Velocity Time Integral 20.1 cm LVOT Cardiac Index 3425.3 cm?/min?m? AV Area Cont Eq vti 2.8 cm? AV Area Cont Eq pk 2.8 cm? MV Peak Velocity 94.7 cm/s MV Peak Gradient 3.6 mmHg MV Mean Velocity 64.8 cm/s MV Mean Gradient 2.0 mmHg MV Area PHT 5.2 cm? Mitral E Point Velocity 75.7 cm/s Mitral A Point Velocity 95.1 cm/s Mitral E to A Ratio 0.8 LV E' Lateral Velocity 13.5 cm/s Mitral E to LV E' Lateral Ratio 5.6 LV E' Septal Velocity 8.1 cm/s Mitral E to LV E' Septal Ratio 9.4 FINDINGS Left Ventricle Normal left ventricular size, wall thickness. Low normal function. Hypokinesis mid anterior septal. The ejection fraction is visually estimated at 45-50%. Right Ventricle The right ventricle is normal in size and systolic function. Left Atrium The left atrium is normal by two-dimensional, color flow and Doppler imaging with no structural abnormalities, no thrombus formation present. Right Atrium The right atrium is normal by two-dimensional imaging, color flow and Doppler imaging with no struct ural abnormalities, no thrombus formation present. Atrial Septum The interatrial septum appears normal with no evidence of a shunt. Aorta The aorta is normal by two-dimensional, color flow and Doppler interrogation. Mitral Valve The mitral valve is normal by two-dimensional, color flow and Doppler interrogation. There is trace mitral valve regurgitation. Aortic Valve The aortic valve is trileaflet and normal by two-dimensional, color flow and Doppler interrogation. There is trace aortic valve regurgitation. Tricuspid Valve The tricuspid valve is normal by two-dimensional, color flow and Doppler interrogation. There is tra ce tricuspid valve regurgitation. Pulmonic Valve There is no significant pulmonic valve regurgitation. Vessels The pulmonary artery appears normal. The inferior vena cava pulmonary and hepatic veins appear renato l. Pericardium The pericardium is normal by two-dimensional imaging. There is no significant pericardial effusion. CONCLUSIONS Indication: Tachycardia Normal LV size. Low normal LV function. Stage I diastolic dysfunction. Estimated EF 50-55% Normal RV size and function. Trace MR, TR. Sebastien Alegre (Electronically Signed) Final Date: 31 October 2024 18:40
[2024-10-30] MEDS: INSULIN REG 100 UNITS/100 ML 100 UNIT in PRE-MIXED 1 BAG IV (12:29)
[2024-10-30] MEDS: INSULIN GLARGINE (Lantus) 5 UNIT/0.05 ML (PER 5 UNITS) 50 UNIT SC (13:43)
[2024-10-30 14:31] LABS: Cocci Serology, IgM Negative (Negative)
[2024-10-30 14:31] LABS: Albumin, Serum 3.7 gm/dL (3.5-5.0); Anion Gap 11 (7-16); BUN/Creatinine Ratio 19 Ratio (12-20); Blood Urea Nitrogen 17 mg/dL (9-23); Calcium 8.7 mg/dL (8.3-10.6); Calcium (Corrected) 8.9 mg/dL (8.5-10.1); Carbon Dioxide 18.9 mMol/L (20.0-31.0); Chloride 106 mMol/L (98-107); Creatinine (Component) 0.9 mg/dL (0.6-1.3); Estimated Creatinine Clearance 129.1 mL/min (>60); Glucose 159 mg/dL (74-106); Osmolality,Calculated 276 (275-295); Phosphorous 1.5 mg/dL (2.4-5.1); Potassium 3.6 mMol/L (3.4-5.1); Sodium 136 mMol/L (136-145); eGFR > 60 See Note
--- NOTE | 2024-10-30 15:51 | PD.SURCONS ---
HPI Consult details Consult date: 10/30/24 Reason for consultation narrative: Patient was seen in consultation because of an abscess over the left neck. History of present illness: Patient is found to have diabetic ketoacidosis with poorly controlled diabetes and was in ICU from last night. He has been sick with nausea and vomiting and increasing pain over the left side of the neck. He also had a dog bite 1 month ago and developed some infection in the axilla. This neck swelling is new and it is giving him considerable amount of pain. Past Medical History Past Medical History NEUROLOGIC: Negative Neurological Disorders or Seizures CARDIAC: Positive Cardiac Disorders, Hypercholesterolemia and Hypertension; Negative Congestive Heart Failure RESPIRATORY: Negative Chronic Obstructive Pulmonary Disease (COPD) or Asthma GASTROINTESTINAL: Negative Gastrointestinal Disorders GENITOURINARY: Negative Genitourinary Disorders or Renal Disease MUSCULOSKELETAL: Negative Musculoskeletal Disorders ENDOCRINE: Positive Endocrine Disorders and Diabetes Mellitus Type 2; Negative Diabetes Mellitus Type 1 HEMATOLOGIC: Negative Blood Disorders or Sickle Cell Disease PSYCHO/SOCIAL: Positive Depression and Anxiety OTHER HISTORY: Positive Falls; Negative Blood Transfusions, Anesthesia Reactions or Cancer Surgical History SURGICAL: Positive Tonsillectomy Social History SMOKING STATUS: Never smoker SUBSTANCE USE: does not use Meds Home Medications and Allergies Allergies Allergy/AdvReac Type Severity Reaction Status Date / Time No Known Allergies Allergy Verified 10/29/24 17:48 Exam Vital Signs Temp Pulse Resp BP Pulse Ox O2 Del Method 98.3 F 119 H 16 144/75 H 97 Room Air 10/30/24 12:00 10/30/24 15:00 10/30/24 15:00 10/30/24 15:00 10/30/24 15:00 10/29/24 23:30 Narrative Exam Physical examination revealed an obese white male who is 6 feet tall weighing 209 pounds with BMI of 28 point his vital signs are normal but his heart rate is about 120 Constitutional Constitutional: severe distress Routine Neck Exam Comments: Examination of the neck showed considerable induration over the posterior portion and it is hard to palpate. There seems to be a small area of necrosis of the skin at the center. There is no fluctuation. Results Results: Laboratory Laboratory Narrative: Patient's laboratory workup showed leukocytosis. His BUN/creatinine is elevated and he is showing signs of diabetic ketoacidosis even though glucose has been controlled. His hemoglobin A1c is 13.5 Results: Imaging Imaging narrative: CT scan showed an abscess over the left neck Assessment & Plan Additional Assessment Additional comments: Impression: Abscess neck Diabetic ketoacidosis being controlled Hypertension Hyperkalemia Hyponatremia Tachycardia obviously due to sepsis Plan Plan: We shall arrange for incision and drainage of the abscess. This abscess is very deep and it is difficult to drain and patient will require considerable amount of antibiotics to resolve this. Thank you very much I will arrange for the drainage today under general anesthesia
--- NOTE | 2024-10-30 16:02 | PC.SS ---
[employer] GR[employer] MATHEMATICS TEACHER conducted bedside contact with the patient conduct initial assessment and to discuss discharge planning. Patient admitted to ICU due to DKA. Patient confirmed demographic information. Patient resides at home with partner, Ana Paula Paulson [phone] . Patient is currently on disability. Patient does not utilize any form of DME to assist with ambulation. Patient does not utilize home oxygen. Patient describes the ability to complete ADL?s independently. Patient identified partner, Ana Paula Paulson; as medical surrogate decision maker. Patient utilizes the [facility] for PCP services. Patient does not participate with dialysis. Patient does not possess any specialty providers. Patient possesses history of diabetes, insulin dependent. Plan is for the patient to return home at the time of discharge. Family will provide transportation on behalf of the patient. No discharge needs identified by the patient. No further intervention required at this time, social science research assistant will be available to address any further concerns. Next of Kin: Ana Paula Paulson D/C Plan: Home
--- NOTE | 2024-10-30 16:04 | PC.SS ---
Update: Patient will undergo IND procedure of the neck today.
--- NOTE | 2024-10-30 16:12 | PD.RESEVENT ---
Documentation for date of: 10/30/24 Event Note Event Note: ICU patient treated for DKA and neck abscess. Patient presented with nausea/vomiting, believed to be related to growing abscess of his neck. Patient was found to have DKA on labs, transferred to ICU and treated with insulin drip. Today anion gap closed x 2, bicarb greater than 15 x 2. Patient taken to OR for surgical I&D today. Patient stable for downgrade to floors. Hospitalist team will assume care of patient starting tomorrow morning. Chris Story MD PGY?1
--- NOTE | 2024-10-30 16:21 | PC.NURSE ---
PATIENT TAKEN TO SURGERY
--- NOTE | 2024-10-30 16:34 | PD.RESPRO ---
Documentation for date of: 10/30/24 Subjective Subjective Interval history: Patient was seen and examined at the bedside in ICU. No acute overnight events. Patient remains lethargic and tachycardic but alert and oriented x 3. He is anion gap has closed x 2, he was started on insulin glargine 50 units daily, lispro 20 units 3 times daily with 2 hours overlap with insulin drip. General surgery was consulted for neck abscesses, patient was taken to the OR for I&D. Once patient is back and is stable will be downgraded to medical floor for continuation of care. Exam Vital Signs Temp Pulse Resp BP Pulse Ox O2 Del Method 98.3 F 118 H 18 141/77 H 97 Room Air 10/30/24 12:00 10/30/24 16:00 10/30/24 16:00 10/30/24 16:00 10/30/24 16:00 10/29/24 23:30 Narrative Exam Gen: Well-developed male. HEENT: NCAT, PERRLA, EOMI, MMM, anicteric conjunctivae. CVS: normal S1 and S2. Regular tachycardia. No M/R/G. Resp: CTAB, no wheezing, crackles or rhonchi. Abd: soft, mildly tender, non-distended. BS+ in all 4 quadrants. MSK: Good ROM in BUE. Multiple hypopigmented skin spots consistent with vitiligo. Left knee is mildly tender to palpation and decreased ROM. Neuro: CN II-XII grossly intact. Patient appears weak and lethargic. Objective Labs 10/30/24 07:00 10/30/24 18:55 Labs: Laboratory Results - last 24 hr 10/29/24 10/29/24 10/30/24 19:21 21:54 01:54 WBC 24.6 H RBC 5.32 Hgb 14.7 Hct 44.3 MCV 83 MCH 27.6 MCHC 33.2 RDW Std Deviation 41.1 Plt Count 298 Neut % (Auto) 85 H Lymph % (Auto) 4 L [place] % (Auto) 9 Eos % (Auto) 0 Baso % (Auto) 0 Neut # (Auto) 20.8 H Lymph # (Auto) 1.1 [place] # (Auto) 2.3 H Eos # (Auto) 0.0 Baso # (Auto) 0.1 Immature Gran # (Auto) 0.39 H Absolute Nucleated RBC 0.00 Immature Gran % 2 H Nucleated RBC % 0 PT 11.2 INR 1.0 APTT 36.9 H VBG pH 7.12 L VBG pCO2 22 L VBG pO2 54 VBG O2 Sat ([place]ise[place]) 87 L VBG Base Excess -20 L Sodium 126 L 135 L Potassium 5.4 H 3.9 D Chloride 94 L 107 Carbon Dioxide < 10.0 L* 12.7 L* Anion Gap 22 H 15 BUN 26 H 22 Creatinine 1.8 H 1.3 D Estim Creat Clear Calc 65.6 90.9 eGFR 48 L > 60 BUN/Creatinine Ratio 14 17 Glucose 495 H* [address] Glu mg/dL Hemoglobin A1c Calculated Osmolality 280 281 Lactic Acid 1.4 1.5 Calcium 10.1 9.1 Corrected Calcium 10.1 9.1 Phosphorus 3.5 1.7 L Magnesium 2.0 1.6 Total Bilirubin 0.3 AST < 8 ALT 13 Alkaline Phosphatase 134 H Troponin I < 0.002 B-Natriuretic Peptide < 20 Total Protein 7.9 Albumin 4.9 4.0 D Globulin 3.0 Albumin/Globulin Ratio 1.6 Lipase 29 Beta-Hydroxybutyrate/Acetoacetate 5.3 H Procalcitonin 0.17 Coccidioides IgM Ab 10/30/24 10/30/24 10/30/24 07:00 10:05 13:45 WBC 17.3 H D RBC 4.51 Hgb 12.6 L D Hct 36.1 L MCV 80 MCH 27.9 MCHC 34.9 RDW Std Deviation 39.7 Plt Count 255 D Neut % (Auto) 86 H Lymph % (Auto) 4 L [place] % (Auto) 9 Eos % (Auto) 0 Baso % (Auto) 0 Neut # (Auto) 14.9 H Lymph # (Auto) 0.7 L [place] # (Auto) 1.5 H Eos # (Auto) 0.0 Baso # (Auto) 0.0 Immature Gran # (Auto) 0.16 H Absolute Nucleated RBC 0.00 Immature Gran % 1 H Nucleated RBC % 0 PT INR APTT VBG pH VBG pCO2 VBG pO2 VBG O2 Sat ([place]iseo) VBG Base Excess Sodium 135 L 134 L 136 Potassium 4.3 3.9 3.6 Chloride 107 107 106 Carbon Dioxide 16.3 L 17.5 L 18.9 L Anion Gap 12 10 11 BUN 21 17 Creatinine 1.1 1.0 0.9 Estim Creat Clear Calc 105.7 116.2 129.1 eGFR > 60 > 60 > 60 BUN/Creatinine Ratio 19 19 Glucose 235 H 153 H D [address] Glu mg/dL 335 H Hemoglobin A1c 13.3 H Calculated Osmolality 281 273 L 276 Lactic Acid 1.0 0.9 Cancelled Calcium 8.9 9.0 8.7 Corrected Calcium 9.0 9.1 8.9 Phosphorus 1.2 L 1.1 L 1.5 L Magnesium 2.0 1.8 2.0 Total Bilirubin AST ALT Alkaline Phosphatase Troponin I B-Natriuretic Peptide Total Protein Albumin 3.9 3.9 3.7 Globulin Albumin/Globulin Ratio Lipase Beta-Hydroxybutyrate/Acetoacetate Procalcitonin Coccidioides IgM Ab Negative ABG Interpretation ABG results: 10/29/24 21:54 VBG pH 7.12 L VBG pCO2 22 L VBG pO2 54 VBG Base Excess -20 L Quality Measures Quality Measures VTE prophylaxis Assessment & Plan Assessment Current Active Medications: Generic Name Dose Route Start Last Admin Trade Name Freq PRN Reason Stop Dose Admin Acetaminophen 1,000 mg 10/29/24 22:08 Acetaminophen 325 Mg Tablet PO 11/28/24 22:07 Q4HR PRN PAIN SCALE 1-3 (mild Acetaminophen 1,000 mg 10/29/24 22:13 Acetaminophen 500 Mg Tablet PO 11/28/24 22:12 Q6HR PRN FEVER > 101 Dextrose 25 ml 10/29/24 22:04 Dextrose 50%-Water Inj 50 Ml Syringe IV [id number] PRN Blood Sugar - Low Heparin Sodium (Porcine) 5,000 unit 10/30/24 09:00 10/30/24 08:15 Heparin Sod Inj 5000 Unit/Ml Vial SC 11/13/24 08:59 5,000 unit Q12HR ALIX Administration Potassium Chloride 10 meq in 100 mls @ 100 mls/hr 10/29/24 22:04 Kcl Ivpb IV 11/28/24 22:03 .Q1H PRN IF POTASSIUM LESS THAN 3.3 Magnesium Sulfate 2 gm in 50 mls @ 25 mls/hr 10/29/24 22:04 10/30/24 07:59 Magnesium Sulfate Ivpb IV 11/28/24 22:03 Infused .Q2H PRN Infusion PER DKA PROTOCOL Insulin Human Regular 100 unit 100 mls @ 9.843 mls/hr 10/29/24 22:04 10/30/24 14:50 / IV Miscellaneous Supplies IV 11/28/24 22:03 0 unit/kg/hr .[id number] PRN 0 mls/hr PER PROTOCOL Titration Protocol 0.1 UNIT/KG/HR Dextrose/Lactated Ringer's 1,000 mls @ 250 mls/hr 10/29/24 22:04 10/30/24 07:08 D5-Lr IV 11/28/24 22:03 0 mls/hr .Q4H PRN Infusion PER PROTOCOL Lactated Ringer's 1,000 mls @ 250 mls/hr 10/29/24 22:04 10/30/24 10:02 Lactated Ringers IV 10/30/24 22:03 250 mls/hr .Q4H PRN Administration PER PROTOCOL Potassium Chloride 20 meq/ 1,010 mls @ 250 mls/hr 10/29/24 22:04 Lactated Ringer's IV 11/28/24 22:03 .Q4H3M PRN K LEVEL 3.3 TO 5.3mM/L Potassium Chloride 40 meq/ 1,020 mls @ 250 mls/hr 10/29/24 22:04 Lactated Ringer's IV 11/28/24 22:03 .Q4H5M PRN K LEVEL < 3.3 mM/L Potassium Chloride 40 meq/ 1,020 mls @ 250 mls/hr 10/29/24 22:04 Dextrose/Lactated Ringer's IV 11/28/24 22:03 .Q4H5M PRN K LEVEL < 3.3mM/L Potassium Cl/Dextrose/Lact Ringer's 20 meq in 1,000 mls @ 250 mls/hr 10/29/24 22:04 Kcl 20 Meq/L In D5-Lr IV 11/28/24 22:03 .Q4H PRN K LEVEL 3.3 TO 5.3 mM/L Potassium Chloride 10 meq in 100 mls @ 50 mls/hr 10/29/24 22:04 10/30/24 07:59 Kcl Ivpb IV 11/28/24 22:03 Infused PRN PRN Infusion K LEVEL 3.3 to 5.3 & BG > 200 Potassium Phosphate 15 mmol in 250 mls @ 62.5 mls/hr 10/29/24 22:04 Pot Phos 15 Mmol In Ns 250 Ml IV 11/28/24 22:03 PRN PRN Phosphate <= 1mg/dL Sodium Phosphate 15 mmol/ 255 mls @ 62.5 mls/hr 10/29/24 22:04 Sodium Chloride IV 11/28/24 22:03 .Q4H5M PRN Phosphate <= 1mg/dL and K> than 5.3 Clindamycin/Sodium Chloride 600 mg in 50 mls @ 100 mls/hr 10/30/24 00:20 10/30/24 14:39 Cleocin/Ns Ivpb IV 11/06/24 00:19 Infused Q8HR ALIX Infusion Ceftriaxone Sodium/Dextrose 50 mls @ 100 mls/hr 10/30/24 02:39 10/30/24 03:59 Rocephin/D5w 1gm Iv Premix IV 11/06/24 02:38 Infused DAILY@2100 ALIX Infusion Sodium Phosphate 30 mmol/ 510 mls @ 62.5 mls/hr 10/30/24 09:00 10/30/24 09:46 Sodium Chloride IV 10/30/24 17:09 62.5 mls/hr X1 ONE Administration Insulin Human Lispro 20 unit 10/30/24 17:00 Insulin Lispro (Admelog) 1 Unit/0.01 Ml Unit SC 11/29/24 16:59 [facility] Insulin Human Lispro 0 unit 10/30/24 17:00 Insulin Lispro (Admelog) 1 Unit/0.01 Ml Unit SC 11/29/24 16:59 [facility] Protocol Ondansetron HCl 4 mg 10/29/24 22:08 10/30/24 01:36 Ondansetron Inj 2 Mg/Ml Inj 2 Ml IV 11/28/24 22:07 4 mg Q8HR PRN Administration NAUSEA OR VOMITING Pantoprazole Sodium 40 mg 10/30/24 09:00 10/30/24 08:15 Pantoprazole 40 Mg Tablet PO 11/29/24 08:59 40 mg QDAY ALIX Administration Sodium Bicarbonate 50 ml 10/29/24 22:04 Sodium Bicarb Inj 8.4% Syr 50 Ml Syringe IV 11/28/24 22:03 PRN PRN For ph <= to 7.0 Plan Mr. Dank Meier is a 39 year old male with a a past medical history significant for left knee ACL rupture, hyperlipidemia, hypertension, and IDDM who presented to the ED with a CC of nausea and vomiting of 2 days duration who was found to be in DKA and was subsequently admitted to the ICU for treatment and management. Neurological Stable. AAOx4 Cardiology #Sinus tachycardia. Pulse 118, patient has chronic tachycardia and was monitored in [facility]. Patient is known to use methamphetamine. Plan: -monitor patient. -echo is ordered. #Hx of hypertension. Patient currently normotensive. Plan: -continue home lisinopril 5mg qday. Pulmonary Stable, saturating well iin ambient air Gastrointestinal #Nausea and vomiting, resolved. #Abdominal pain, improved. In the setting of DKA. Gastric contents tested positive for blood. Plan: -GI PPX: 40 mg Pantoprazole QD. -resume oral diet. -Zofran PRN for N/V. Renal/Genitourinary #Anion Gap Metabolic acidosis, resolved. Anion Gap 19, Beta Hydroxybutyrate> 6.4, HCO3 <10. VBG:?pH 7.12/pCO2 22 and bicarb on CMP was less than 10. Lactic acid: 1.4 #Acute Kidney Injury, resolved. Creatinine: 1.8, elevated from baseline of 0.8. Most likely prerenal in etiology likely secondary to dehydration/poor p.o. intake(decreased renal perfusion). #Hyponatremia ,resolved. Sodium 126, most likely pseudohyponatremia, Corrected sodium:135. #Hyperkalemia, resolved. Potassium: 5.7 most likely due to extracellular shift, expected to resolve with DKA resolution. Endocrine #Diabetic Ketoacidosis, resolved. Mostly likely triggered by infection/abscess. Blood Glucose: 495, Anion Gap Metabolic acidosis: Anion Gap 22, Beta Hydroxybutyrate> 5.3, HCO3 <10. Plan: -insulin drip discontinued, transitioned to SC insulin. -resume oral diet. #Hx of poorly controlled IDDM. Patient is know to have resistant diabetes and poor compliance with medications. Home regimen includes insulin degludec 30u BID, lispro 20u TID, SSI, zepbound weekly, and metformin 750 Mg ER once daily. Plan: -stopped DKA protocol. -started on glargine 50u daily. -started on lispro 20u AC and SSI. -hypoglycemia protocol in place. -low carbs consistent diet. -reinforce compliance with diabetes treatment. -home medications on hold. Hematology #Leuckocytosis. WBC: 24.6, most likely 2/2 abscess/infection. #Normocytic anemia. Likely dilutional in setting of aggressive IVF. Infectious Disease #Abscess, neck. Patient with abscess formation on posterior neck. Patient has had multiple abscess in his armpit and on his neck which have drained purulent fluid. He notes the abscesses started forming 1 month prior to presentation after sustaining a dog bite. CT showed subcutaneous soft tissue posterior left neck abscess, 5.4 x 3.7 x 4.8 cm. Plan: -continue with Clindamycin 600 mg IV q8hr & Ceftriaxone 1 gram qday. -general surgery consulted, I&D today. Skin Skin and soft tissue infection as noted above. Health Maintenance: Fluids Electrolytes Nutrition: DKA protocol. Code Status: Full Code. DVT Prophylaxis: Heparin 5000 units SC q8hrs. GI Prophylaxis: Pantoprazole. Lines/Peripheral IV: 18 guage left and right AC. Cox: No. Drips: Insulin gtt. Disposition: Patient requires inpatient ICU admission for DKA requiring IV fluids and insulin gtt. Plan of care discussed with attending Dr. Matos. Rafael Giraldo MD, PGY 2. Disclaimer: This note was dictated by speech recognition. Minor errors in concrete mason may be present due to voice recognition software. Attending Provider Attestation/Addendum Patient seen and examined with the above resident, Rafael Giraldo MD. I agree with the findings, assessment, and plan of care as documented except for any differences below. Patient well-known to ICU staff and myself. With frequent admissions. Dr. Giraldo is the patient's primary care physician and resident clinic. Has been working with him with recent dog bite induced lymphatic disease and was treated with empiric antibiotics. Patient with ongoing compliance issues though he had been out of the hospital for many months. Patient now with skin infection at the base of the neck I will request general surgery to perform incision and drainage to which they have agreed this afternoon. Patient was placed on insulin drip for DKA with aggressive fluid resuscitation and electrolyte replacement. This afternoon anion gap remained closed with normalization of bicarbonate level. Patient was transitioned to subcutaneous regimen long-acting insulin and upon return from the OR will be resumed on diet with a mealtime regimen along with availability of sliding scale of for correction. Patient with significant history of methamphetamine abuse as well which is planning a role in his compliance as primary care has been working with him on. Should the patient remained stable after return from the OR, patient can be transition to telemetry [place] for ongoing management prior to discharge in coming days based on result/findings and operating room. Total critical care time: I personally spent 30 minutes for review of physiologic parameters, directing plan of care throughout the day, coordination of care with other specialties, and counseling patient at bedside. This is exclusive of time spent teaching housestaff or performing separate billable procedures. Patient continues require critical care services for diabetic ketoacidosis without coma and sepsis secondary to neck abscess. Patient remains at risk for increased morbidity and mortality warranting ongoing care and management only available in the intensive care unit.
--- NOTE | 2024-10-30 17:21 | SUR.PHASEI ---
pt received to [facility]. vss. breathing even and unlabored. dressing to left neck cdi. report from nurse jasiel and dr angel.
--- NOTE | 2024-10-30 17:27 | PD.SUROPNT ---
Date of Procedure 10/30/24 Pre Op Diagnosis Carbuncle neck Post Op Diagnosis Same with necrotizing fasciitis Procedure Incision and drainage and debridement of skin subcutaneous tissue and fascia from the neck Findings Patient was found to have necrotizing fasciitis over the neck and required extensive debridement after drainage of abscess Procedure Description After the patient was brought to the operating room he was given LMA general anesthesia and kept on right lateral position. Then his neck was washed with Betadine solution and draped in a sterile manner. Timeout was performed. I made an incision over the midportion of the neck and purulent material came into view. This was cultured on the made a deeper incision I found out that the patient had necrosis involving the fascia on the subcutaneous tissue. Therefore extended the incision to up to about 6 cm to 7 cm and excised all necrotic tissue. This was not simple abscess but it was extensive infection. Wound was then irrigated with saline solution extensively on then packed with 1 inch iodoform gauze fluffs. Patient tolerated the procedure well Anesthesia other Pathology / specimen None Estimated Blood Loss 40 Surgeon Milla Becker MD Surgical Staff Operation Date: 10/30/24 15:30 Case Staff Anesthesiologist: Evelio Cisneros
--- NOTE | 2024-10-30 18:10 | SUR.PHASEI ---
report called to desmond. pt transferred to tele via bed. pt awake and alert. moved self to bed asking for food. food in room at bedside. vss. breathing even and unlabored. dressing to neck remains cdi. nurse and hydraulic chair assembler at bedside.
[2024-10-30] MEDS: INSULIN LISPRO (AdmeLOG) 1 UNIT/0.01 ML UNIT 20 UNIT SC (18:21)
--- NOTE | 2024-10-30 18:40 | ESPR_ITS ---
Documentation for date of: 10/30/24 ANESTHESIA NOTE: Patient had general LMA anesthesia in right lateral and reverse T-diaz position for posterior neck I & D earlier today. Pre-op, I saw him in ICU 254. He was sleeping in bed, very drowsy but answered appropriately. His posterior neck appeared grossly infectious with large area of erythema and swelling and he endorsed neck pain and also pain over his entire back for 2 weeks. He overall had poor hygiene with bruised lower lip, distorted and discolored finger nails, and very poor dentition with multiple front teeth eroded and discolored. He has been in ICU for DKA, and he has been tachycardic (HR 110-130s) and hypertensive. He did well intra-op. After LMA placement, he had thick greenish secretions in his mouth which I suctioned out. He did well in PACU, rested calmly throughout, VSS (HR 110s ST as pre-op, normotensive, O2 sat 97-98% on room air), and was later transferred to [place] [id number]. I later saw him there and he was sleeping calmly, supine, O2 sat 96% on room air, NAD. Evelio Cisneros MD Anesthesia Progress Note Progress Note Most recent Vital Signs: Last Vital Signs Temp 99 F 10/30/24 18:10 Pulse 119 H 10/30/24 18:10 Resp 16 10/30/24 18:10 BP 128/77 10/30/24 18:10 Pulse Ox 97 10/30/24 18:10 O2 Del Method Room Air 10/29/24 23:30
[2024-10-30 19:03] LABS: Lactate (Lactic Acid) 0.8 mMol/L (0.4-2.0)
[2024-10-30 19:17] LABS: Anion Gap 12 (7-16); Calcium 8.4 mg/dL (8.3-10.6); Carbon Dioxide 17.8 mMol/L (20.0-31.0); Chloride 104 mMol/L (98-107); Potassium 3.6 mMol/L (3.4-5.1); Sodium 134 mMol/L (136-145)
[2024-10-30 19:22] LABS: Albumin, Serum 3.6 gm/dL (3.5-5.0); BUN/Creatinine Ratio 16 Ratio (12-20); Blood Urea Nitrogen 16 mg/dL (9-23); Calcium (Corrected) 8.7 mg/dL (8.5-10.1); Estimated Creatinine Clearance 116.2 mL/min (>60); Glucose 234 mg/dL (74-106); Magnesium 1.8 mg/dL (1.6-2.6); Osmolality,Calculated 277 (275-295); Phosphorous 1.8 mg/dL (2.4-5.1); eGFR > 60 See Note
[2024-10-30] MEDS: HYDROcodone/APAP 5/325 TABLET 1 TAB PO (21:00)
[2024-10-30] MEDS: INSULIN LISPRO (AdmeLOG) 1 UNIT/0.01 ML UNIT SC (21:50)
[2024-10-31] VITALS (11 sets, daily range): BP systolic 97–137; BP diastolic 65–72; PULSE 103–130; RESP 14–98; TEMP 36.1–36.7; O2SAT 96–97; BMI 30.4
[2024-10-31 01:01] LABS: Collection Type, Urine Clean Catch; Squamous Epithelial Cell,Urine 0 /hpf (0-5)
[2024-10-31 01:24] LABS: Bilirubin,Urine Negative (Negative); Blood,Urine Trace (Negative); Clarity,Urine Clear (Clear/Hazy); Color,Urine Lt-Yellow (Lt Yel-Yel); Glucose, Urine 4+ (Negative); Ketones,Urine 2+ (Negative); Leukocyte Esterase,Urine Negative (Negative); Nitrite,Urine Negative (Negative); Protein,Urine 1+ (Neg - Trace); RBC,Urine 2 /hpf (0-3); Specific Gravity,Urine 1.023 (1.001-1.035); Sperm,Urine Present; Urobilinogen,Urine Negative mg/dL (0.0-1.0); WBC,Urine 3 /hpf (0-5)
[2024-10-31 01:28] LABS: Amphetamine/Methamp Scrn,U Positive (Negative); Barbiturate Screen,Urine Negative (Negative); Benzodiazepines Screen,Urine Negative (Negative); Benzoylecgonine Screen, Ur Negative (Negative); Fentanyl Screen,Urine Positive (Negative); Opiate Screen,Urine Negative (Negative); THC Screen,Urine Negative (Negative)
[2024-10-31] MEDS: CLINDAMYCIN/NS 600 MG IVPB 600 MG/50 ML BAG 100 MG IV (05:01)
[2024-10-31] MEDS: PIPER/TAZO 3.375 GM 3.375 GM/50 ML BAG IV ×3 (06:11→21:06)
[2024-10-31 06:17] LABS: Basophils % (Auto) 0 % (0-2.5); Eosinophils # (Auto) 0.1 Thou/mm3 (0.0-0.5); Eosinophils % (Auto) 0 % (0-10); Hematocrit 33.3 % (41.0-53.0); Hemoglobin 11.8 g/dL (13.5-16.0); Immature Granulocytes % (Auto) 1 % (0-0); Immature Granulocytes Auto 0.09 Thou/mm3 (0.00-0.00); Lymphocytes % (Auto) 9 % (10-50); Mean Corpuscular HGB Conc 35.4 g/dl (31.0-37.0); Mean Corpuscular Hemoglobin 28.2 pg (25.0-35.0); Mean Corpuscular Volume 80 fL (80-100); Monocytes % (Auto) 8 % (0-12); Neutrophils # (Auto) 9.7 Thou/mm3 (1.8-7.7); Neutrophils % (Auto) 81 % (37-80); Nucleated Red Blood Cell % 0 /100 WBC (0); Platelet Count 242 Thou/mm3 (140-440); RDW Standard Deviation 40.5 fL (35.1-43.9); Red Blood Count 4.18 Miln/mm3 (4.50-5.90); White Blood Count 11.9 Thou/mm3 (3.8-10.6)
[2024-10-31] MEDS: Vancomycin Inj 2,000 MG in SODIUM CHLORIDE 0.9% 500 ML 500 ML 150 MG IV (07:18)
[2024-10-31] MEDS: INSULIN LISPRO (AdmeLOG) 1 UNIT/0.01 ML UNIT SC ×4 (07:18→21:06)
[2024-10-31 07:26] LABS: Alanine Aminotransferase 13 U/L (10-49); Albumin, Serum 3.4 gm/dL (3.5-5.0); Albumin/Globulin Ratio 1.5 (1.2-2.2); Alkaline Phosphatase 110 U/L (46-116); Anion Gap 10 (7-16); Aspartate Amino Transferase < 8 U/L (0-34); BUN/Creatinine Ratio 14 Ratio (12-20); Bilirubin,Total 0.2 mg/dL (0.3-1.2); Blood Urea Nitrogen 13 mg/dL (9-23); Calcium 8.4 mg/dL (8.3-10.6); Calcium (Corrected) 8.9 mg/dL (8.5-10.1); Carbon Dioxide 20.9 mMol/L (20.0-31.0); Chloride 102 mMol/L (98-107); Creatinine (Component) 0.9 mg/dL (0.6-1.3); Estimated Creatinine Clearance 133.5 mL/min (>60); Globulin 2.2 gm/dL (2.3-3.5); Osmolality,Calculated 284 (275-295); Phosphorous 1.4 mg/dL (2.4-5.1); Potassium 3.8 mMol/L (3.4-5.1); Sodium 133 mMol/L (136-145); Total Protein 5.6 gm/dL (5.7-8.2); eGFR > 60 See Note
--- NOTE | 2024-10-31 07:38 | PC.NURSE ---
Called to Dr. Vasquez to make aware that Willam from Lab reports pt. glucose at 423. however, bedside check was done and resulted at 344 before call was received from lab. Pt. was provided with insulin coverage per sliding scale order. Dr. vasquez states check pt. blood glucose again in 30 minutes, waiting for lab results for Anion gap.
[2024-10-31 07:51] LABS: Glucose 423 mg/dL (74-106)
[2024-10-31] MEDS: INSULIN GLARGINE (Lantus) 5 UNIT/0.05 ML (PER 5 UNITS) 50 UNIT SC (08:33)
[2024-10-31] MEDS: HEPARIN SOD INJ 5000 UNIT/ML VIAL SC ×2 (08:34→21:06)
[2024-10-31] MEDS: POT PHOS 15 mMol in NS 250 ML 15 MMOL/250 ML BAG 62.5 MMOL IV ×2 (08:35→12:16)
--- NOTE | 2024-10-31 09:12 | PC.NURSE ---
pt. refused bed alarm at this time. Pt. provided with call light and educated on fall risks and precautions. Pt. verbally agrees to call for help.
--- NOTE | 2024-10-31 13:52 | PC.SS ---
SS follow up note; Patient is on IV ABX.
--- NOTE | 2024-10-31 14:05 | PC.NURSE ---
Pt. reports bloody nose. Dr. Ramireziq made aware. states I will come by and see the patient.
[2024-10-31 14:51] LABS: Cocci Serology, IgG Negative (Negative)
--- NOTE | 2024-10-31 15:55 | ESPR_ITS ---
<Statement entered by Jean-Pierre Vasquez MD - 10/31/24 21:36> Patient was seen and examined at the bedside. Patient was ICU downgrade after DKA resolution. Patient also received IV antibiotic therapy and is post I&D for abscess on the neck due to dog bite. We are currently following surgery recommendations. General surgeon, Dr. Hudson performed I&D yesterday. We are currently continuing IV vancomycin and Zosyn. Patient blood sugar remained elevated overnight therefore basal bolus regimen was adjusted. Currently we are giving 50 units of Lantus at night and 20 units 3 times daily with meals with insulin sliding scale. Urine cultures are pending. Labs showed improvement in white count at 11.9. Hemoglobin stable at 11.8. Kidney functions were unremarkable. Phosphorus 1.4 which was repleted. Patient had a mild episode of blood in the nose that resolved. Will likely continue adjusting blood sugars and anticipating discharge in next 24-48 hours if cultures come negative. ID has been consulted for further recommendations. All labs and orders were reviewed. I saw and examined the patient, and I agree with current management stated by Dr Porsha MD,PGY1. Plan of care was discussed with the attending physician and resident physician. Disclaimer: Despite multiple revisions, due to the dictation software being used, the document bellow may not be free of grammatical errors including phonetic/typographic errors. However, this does not deter from our commitment to providing health care in the patient's best interest in mind. Dr. Pedro MD, PGY 2 Documentation for date of: 10/31/24 Subjective Subjective Interval history: No overnight events. Patient seen and examined at bedside. Patient notes significant pain at back of neck. Patient denies fevers, chills, nausea, vomiting, shortness of breath. Continue IV antibiotics for necrotizing fasciitis. ID consulted. Maintain blood sugar control. Exam Vital Signs Temp Pulse Resp BP Pulse Ox O2 Del Method 97.0 F 104 H 18 110/71 96 Room Air 10/31/24 15:37 10/31/24 15:37 10/31/24 15:37 10/31/24 15:37 10/31/24 15:37 10/31/24 15:37 Narrative Exam PE: Gen: Well-developed and well-nourished. HEENT: NCAT, PERRLA, EOMI, MMM, anicteric conjunctivae. Back of neck swollen and firm, tender, erythematous. Site of I&D bandaged, minimal drainage. CVS: normal S1 and S2. RRR. No M/R/G. Resp: CTA B/L. No rhonchi, rales, crackles or wheezing. Abd: soft, non-tender, non-distended. MSK: Good ROM in BUE & BLE. No edema or rash. Scarring of her maxilla and lower back related to dog bite and subsequent abscesses. Neuro: CN II-XII grossly intact. Strength 5/5 in BUE & BLE. Alert and oriented x3. Psych: appropriate mood and affect. Objective Labs 10/31/24 04:50 10/31/24 04:50 Labs: Laboratory Results - last 24 hr 10/30/24 10/30/24 10/31/24 07:00 18:55 00:24 WBC RBC Hgb Hct MCV MCH MCHC RDW Std Deviation Plt Count Neut % (Auto) Lymph % (Auto) [place] % (Auto) Eos % (Auto) Baso % (Auto) Neut # (Auto) Lymph # (Auto) [place] # (Auto) Eos # (Auto) Baso # (Auto) Immature Gran # (Auto) Absolute Nucleated RBC Immature Gran % Nucleated RBC % Sodium 134 L Potassium 3.6 Chloride 104 Carbon Dioxide 17.8 L Anion Gap 12 BUN 16 Creatinine 1.0 Estim Creat Clear Calc 116.2 eGFR > 60 BUN/Creatinine Ratio 16 Glucose 234 H D Calculated Osmolality 277 Lactic Acid 0.8 Calcium 8.4 Corrected Calcium 8.7 Phosphorus 1.8 L Magnesium 1.8 Total Bilirubin AST ALT Alkaline Phosphatase Total Protein Albumin 3.6 Globulin Albumin/Globulin Ratio Ur Collection Type Clean Catch Urine Color Lt-Yellow Urine Clarity Clear Urine pH 6.0 Ur Specific Mackey 1.023 Urine Protein 1+ A Urine Glucose (UA) 4+ A Urine Ketones 2+ A Urine Blood Trace Urine Nitrite Negative Urine Bilirubin Negative Urine Urobilinogen (Auto) Negative Ur Leukocyte Esterase Negative Urine RBC 2 Urine WBC 3 Ur Squamous Epith Cells 0 Urine Bacteria None Urine Sperm Present A Urine Opiates Screen Negative Urine Fentanyl Screen Positive A Ur Barbiturates Screen Negative U Amphetamin/Meth Scrn Positive A U Benzodiazepines Scrn Negative U Cocaine Metab Screen Negative U Marijuana (THC) Screen Negative Coccidioides IgG Ab Negative 10/31/24 04:50 WBC 11.9 H D RBC 4.18 L Hgb 11.8 L Hct 33.3 L MCV 80 MCH 28.2 MCHC 35.4 RDW Std Deviation 40.5 Plt Count 242 Neut % (Auto) 81 H Lymph % (Auto) 9 L [place] % (Auto) 8 Eos % (Auto) 0 Baso % (Auto) 0 Neut # (Auto) 9.7 H Lymph # (Auto) 1.0 [place] # (Auto) 1.0 H Eos # (Auto) 0.1 Baso # (Auto) 0.0 Immature Gran # (Auto) 0.09 H Absolute Nucleated RBC 0.00 Immature Gran % 1 H Nucleated RBC % 0 Sodium 133 L Potassium 3.8 Chloride 102 Carbon Dioxide 20.9 Anion Gap 10 BUN 13 Creatinine 0.9 Estim Creat Clear Calc 133.5 eGFR > 60 BUN/Creatinine Ratio 14 Glucose 423 H* D Calculated Osmolality 284 Lactic Acid Calcium 8.4 Corrected Calcium 8.9 Phosphorus 1.4 L Magnesium 2.0 Total Bilirubin 0.2 L AST < 8 ALT 13 Alkaline Phosphatase 110 D Total Protein 5.6 L Albumin 3.4 L Globulin 2.2 L Albumin/Globulin Ratio 1.5 Ur Collection Type Urine Color Urine Clarity Urine pH Ur Specific [place] Urine Protein Urine Glucose (UA) Urine Ketones Urine Blood Urine Nitrite Urine Bilirubin Urine Urobilinogen (Auto) Ur Leukocyte Esterase Urine RBC Urine WBC Ur Squamous Epith Cells Urine Bacteria Urine Sperm Urine Opiates Screen Urine Fentanyl Screen Ur Barbiturates Screen U Amphetamin/Meth Scrn U Benzodiazepines Scrn U Cocaine Metab Screen U Marijuana (THC) Screen Coccidioides IgG Ab ABG Interpretation ABG results: 10/29/24 21:54 VBG pH 7.12 L VBG pCO2 22 L VBG pO2 54 VBG Base Excess -20 L Quality Measures Quality Measures VTE prophylaxis Assessment & Plan Assessment Current Active Medications: Generic Name Dose Route Start Last Admin Trade Name Freq PRN Reason Stop Dose Admin Acetaminophen 1,000 mg 10/30/24 18:39 Acetaminophen 500 Mg Tablet PO 11/28/24 22:12 Q6HR PRN FEVER > 101 or pain rated 1-3 Hydrocodone Bitart/Acetaminophen 1 tab 10/30/24 18:39 10/30/24 21:00 Hydrocodone/Apap 5/325 Tablet PO 11/04/24 18:38 1 tab Q4HR PRN Administration PAIN RATED 4-6 Heparin Sodium (Porcine) 5,000 unit 10/30/24 09:00 10/31/24 08:34 Heparin Sod Inj 5000 Unit/Ml Vial SC 11/13/24 08:59 5,000 unit Q12HR [facility] Administration Piperacillin/Tazobactam/Dextrose 3.375 gm in 50 mls @ 12.5 mls/hr 10/31/24 06:15 10/31/24 14:01 Zosyn IV 11/07/24 06:14 12.5 mls/hr Q8HR [facility] Administration Protocol Potassium Phosphate 15 mmol in 250 mls @ 62.5 mls/hr 10/31/24 07:57 10/31/24 12:16 Pot Phos 15 Mmol In Ns 250 Ml IV 10/31/24 15:56 62.5 mls/hr Q4H [facility] Administration Vancomycin HCl 1,000 mg/ 500 mls @ 171.429 mls/hr 10/31/24 22:00 Vancomycin HCl 750 mg/ Sodium IV 11/07/24 21:59 Chloride BID@1000,2200 [facility] Protocol Insulin Glargine 25 unit 11/01/24 09:00 Insulin Glargine (Lantus) 5 Unit/0.05 Ml (Per 5 Units) SC 12/01/24 08:59 BID [facility] Insulin Human Lispro 20 unit 10/30/24 17:00 10/31/24 11:02 Insulin Lispro (Admelog) 1 Unit/0.01 Ml Unit SC 11/29/24 16:59 Not Given [facility] Insulin Human Lispro 0 unit 10/30/24 21:45 10/31/24 11:01 Insulin Lispro (Admelog) 1 Unit/0.01 Ml Unit SC 11/29/24 21:44 12 unit ACHS [facility] Administration Protocol Ondansetron HCl 4 mg 10/29/24 22:08 10/30/24 01:36 Ondansetron Inj 2 Mg/Ml Inj 2 Ml IV 11/28/24 22:07 4 mg Q8HR PRN Administration NAUSEA OR VOMITING Pantoprazole Sodium 40 mg 10/30/24 09:00 10/31/24 09:06 Pantoprazole 40 Mg Tablet PO 11/29/24 08:59 Not Given QDAY [facility] Pharmacy Consult 1 each 10/31/24 09:00 Vancomycin Pharmacy To Dose 1 Each Each IV 11/30/24 08:59 QDAY PRN PROTOCOL Plan Mr. Dank Meier is a 39 year old male with a a past medical history significant for left knee ACL rupture, hyperlipidemia, hypertension, and IDDM who presented to the ED with a CC of nausea and vomiting of 2 days duration who was found to be in DKA and was subsequently admitted to the ICU for treatment and management, stabilized and downgraded to floors for further management. #Necrotizing fasciitis of the neck, s/p I&D Patient has abscess on the back of his neck and patient had tongue bite 1 month ago resulted in infection, which is. To starting axilla and then to his neck. Has had neck abscess for 2 weeks. Patient underwent surgical I&D on 10/30, was found to have necrotizing fasciitis, which was clean to degraded by surgery. Abscess cultures were taken. -Vancomycin pharmacy dosing (started 10/31) -Zosyn 3.375 g IV every 8 hours (started 07/01) -Infectious disease consulted, follow-up -Abscess cultures pending, follow-up -Blood cultures negative x 24 hours, follow-up -[place] 5 p.o. every 4 hours as needed for pain #DKA, resolved #Hx of poorly controlled IDDM. Patient is know to have resistant diabetes and poor compliance with medications. Home regimen includes insulin degludec 30u BID, lispro 20u TID, SSI, zepbound weekly, and metformin 750 Mg ER once daily. Patient initially admitted to ICU for DKA, anion gap closed and patient successfully transitioned to subcutaneous insulin. Blood sugar control remains poor, blood glucose consistently greater than 300. -ISS -Insulin glargine 25 twice daily -Insulin lispro 20 AC -Carb consistent low diet DVT prophylaxis: Heparin GI prophylaxis: Protonix Diet: Carb consistent low Lines: Peripheral IV Code status: Full code Plan of care discussed with senior resident Dr. Vasquez PGY?[address] Atkinson. Chris Story MD PGY?1 Attending Provider Attestation/Addendum Which demonstrated extensive soft tissue cellulitis infectious changes involving the left labia extending into the anterior lower pelvic wall on both the right and left sides. Minimal irregular fluid collections in the left labia but no discrete drainable fluid filled abscess. No infectious inflammatory changes extending into the left perianal region were noted. Considering imaging finding, patient can be managed here, will continue IV antibiotics for now and monitor for continued improvement. DOPE EDGER consulted, appreciate recommendations. I have discussed and was present for the essential components of the history, physical examination, diagnosis, and treatment plan with the resident. I agree with the patient's care as documented by the resident and amended herein by me. Xiang Atkinson DO. Patient seen and evaluated this AM. No subjective complaints overnight, patient's status post debridement for necrotizing fasciitis. CBC demonstrating a WBC of 12, hemoglobin 11.8. BMP largely unremarkable. Will continue Vanco and Zosyn at this time. Cultures of the patient's neck tissue demonstrating gram-positive cocci, will continue to follow, urine culture still pending and blood cultures demonstrating NGTD. Patient's blood glucose also elevated to 423 this morning, will continue regimen of Lantus 50 units daily however may divide into 2 equal doses and lispro 20 units 3 times daily AC with sliding scale for now. Will continue to monitor closely, infectious disease consulted, appreciate recommendations. Likely discharge home in 2 to 3 days pending continued improvement. Although this document has been carefully reviewed, there may still be some phonetic and other typographical errors. These errors are purely grammatical due to imperfections in the software program and should not be construed in any way to compromise the substance of the patient's medical care during this visit.
[2024-10-31] MEDS: HYDROcodone/APAP 5/325 TABLET 1 TAB PO (17:26)
[2024-10-31] MEDS: Vancomycin Inj 1,000 MG, Vancomycin Inj 750 MG in SODIUM CHLORIDE 0.9% 500 ML 500 ML 171.429 MG IV (21:09)
[2024-11-01] VITALS (9 sets, daily range): BP systolic 104–124; BP diastolic 65–84; PULSE 85–129; RESP 12–95; TEMP 36.1–36.5; O2SAT 96–99; BMI 30.4
[2024-11-01] MEDS: PIPER/TAZO 3.375 GM 3.375 GM/50 ML BAG IV ×2 (05:16→14:03)
[2024-11-01 05:46] LABS: Basophils % (Auto) 1 % (0-2.5); Eosinophils # (Auto) 0.2 Thou/mm3 (0.0-0.5); Eosinophils % (Auto) 2 % (0-10); Hematocrit 32.7 % (41.0-53.0); Hemoglobin 11.3 g/dL (13.5-16.0); Immature Granulocytes % (Auto) 1 % (0-0); Immature Granulocytes Auto 0.09 Thou/mm3 (0.00-0.00); Lymphocytes # (Auto) 1.4 Thou/mm3 (1.0-4.8); Lymphocytes % (Auto) 22 % (10-50); Mean Corpuscular HGB Conc 34.6 g/dl (31.0-37.0); Mean Corpuscular Hemoglobin 27.5 pg (25.0-35.0); Mean Corpuscular Volume 80 fL (80-100); Monocytes # (Auto) 0.6 Thou/mm3 (0.0-0.8); Monocytes % (Auto) 9 % (0-12); Neutrophils # (Auto) 4.2 Thou/mm3 (1.8-7.7); Neutrophils % (Auto) 65 % (37-80); Nucleated Red Blood Cell % 0 /100 WBC (0); Platelet Count 236 Thou/mm3 (140-440); RDW Standard Deviation 40.4 fL (35.1-43.9); Red Blood Count 4.11 Miln/mm3 (4.50-5.90); White Blood Count 6.4 Thou/mm3 (3.8-10.6)
[2024-11-01 06:26] LABS: Alanine Aminotransferase 12 U/L (10-49); Albumin, Serum 3.3 gm/dL (3.5-5.0); Albumin/Globulin Ratio 1.5 (1.2-2.2); Alkaline Phosphatase 104 U/L (46-116); Anion Gap 8 (7-16); BUN/Creatinine Ratio 20 Ratio (12-20); Bilirubin,Total 0.2 mg/dL (0.3-1.2); Blood Urea Nitrogen 14 mg/dL (9-23); Calcium 8.4 mg/dL (8.3-10.6); Carbon Dioxide 25.2 mMol/L (20.0-31.0); Chloride 101 mMol/L (98-107); Creatinine (Component) 0.7 mg/dL (0.6-1.3); Estimated Creatinine Clearance 171.7 mL/min (>60); Globulin 2.2 gm/dL (2.3-3.5); Glucose 324 mg/dL (74-106); Magnesium 1.9 mg/dL (1.6-2.6); Osmolality,Calculated 281 (275-295); Phosphorous 2.3 mg/dL (2.4-5.1); Potassium 3.5 mMol/L (3.4-5.1); Sodium 134 mMol/L (136-145); Total Protein 5.5 gm/dL (5.7-8.2); eGFR > 60 See Note
[2024-11-01 06:43] LABS: Aspartate Amino Transferase 10 U/L (0-34)
[2024-11-01] MEDS: INSULIN LISPRO (AdmeLOG) 1 UNIT/0.01 ML UNIT SC ×2 (08:16→16:57)
[2024-11-01] MEDS: POT PHOS 15 mMol in NS 250 ML 15 MMOL/250 ML BAG 62.5 MMOL IV ×2 (09:12→15:12)
[2024-11-01] MEDS: PANTOPRAZOLE 40 MG TABLET PO (09:12)
[2024-11-01] MEDS: HEPARIN SOD INJ 5000 UNIT/ML VIAL SC ×2 (09:13→20:50)
[2024-11-01] MEDS: Vancomycin Inj 1,000 MG, Vancomycin Inj 750 MG in SODIUM CHLORIDE 0.9% 500 ML 500 ML 171.429 MG IV ×2 (09:13→22:13)
[2024-11-01] MEDS: INSULIN GLARGINE (Lantus) 5 UNIT/0.05 ML (PER 5 UNITS) 30 UNIT SC (09:13)
[2024-11-01] MEDS: INSULIN LISPRO (AdmeLOG) 1 UNIT/0.01 ML UNIT 22 UNIT SC ×2 (11:42→17:06)
--- NOTE | 2024-11-01 15:34 | ESPR_ITS ---
<Statement entered by Jean-Pierre Vasquez MD - 11/01/24 20:17> Patient was seen and examined at the bedside. No acute overnight events were reported. Patient reported that he had mild pain. He appeared diaphoretic this morning on examination. However he did not report any chest pain or palpitations. This morning patient's white count has improved. Blood sugars remain elevated. Therefore insulin Lantus was increased to 12 units twice daily and lispro 20 units continued with meals. We are waiting on the final blood cultures. Current blood cultures, negative for 24 hours. Surgery recommended to continue with IV antibiotic therapy vancomycin and Zosyn for now. Wound care is following. Hemoglobin remained stable. Likely follow-up with the final cultures and anticipate discharge in next 2 days. All labs and orders were reviewed. I saw and examined the patient, and I agree with current management stated by Dr Porsha MD,PGY1. Plan of care was discussed with the attending physician and resident physician. Disclaimer: Despite multiple revisions, due to the dictation software being used, the document bellow may not be free of grammatical errors including phonetic/typographic errors. However, this does not deter from our commitment to providing health care in the patient's best interest in mind. Dr. Cecelia MD, PGY 2 Documentation for date of: 11/01/24 Subjective Subjective Interval history: No overnight events. Patient seen and examined at bedside. Denies fevers, chills, nausea, vomiting. Notes continued neck pain. Insulin regimen altered for better blood sugar control. Wound culture showed pansensitive Staph aureus, antibiotics switched to Rocephin Exam Vital Signs Temp Pulse Resp BP Pulse Ox O2 Del Method 97.5 F 101 H 27 H 124/84 98 Room Air 11/01/24 08:48 11/01/24 08:48 11/01/24 08:48 11/01/24 08:48 11/01/24 08:48 11/01/24 08:48 Narrative Exam PE: Gen: Well-developed and well-nourished. Mildly diaphoretic. HEENT: NCAT, PERRLA, EOMI, MMM, anicteric conjunctivae. Back of neck swollen and firm, tender, erythematous. Site of I&D bandaged, no drainage. CVS: normal S1 and S2. RRR. No M/R/G. Resp: CTA B/L. No rhonchi, rales, crackles or wheezing. Abd: soft, non-tender, non-distended. MSK: Good ROM in BUE & BLE. No edema or rash. Scarring of right maxilla and lower back related to dog bite and subsequent abscesses. Neuro: CN II-XII grossly intact. Strength 5/5 in BUE & BLE. Alert and oriented x3. Psych: appropriate mood and affect. Objective Labs 11/01/24 04:16 11/01/24 04:16 Labs: Laboratory Results - last 24 hr 11/01/24 04:16 WBC 6.4 D RBC 4.11 L Hgb 11.3 L Hct 32.7 L MCV 80 MCH 27.5 MCHC 34.6 RDW Std Deviation 40.4 Plt Count 236 Neut % (Auto) 65 Lymph % (Auto) 22 [place] % (Auto) 9 Eos % (Auto) 2 Baso % (Auto) 1 Neut # (Auto) 4.2 Lymph # (Auto) 1.4 [place] # (Auto) 0.6 Eos # (Auto) 0.2 Baso # (Auto) 0.0 Immature Gran # (Auto) 0.09 H Absolute Nucleated RBC 0.00 Immature Gran % 1 H Nucleated RBC % 0 Sodium 134 L Potassium 3.5 Chloride 101 Carbon Dioxide 25.2 Anion Gap 8 BUN 14 Creatinine 0.7 Estim Creat Clear Calc 171.7 eGFR > 60 BUN/Creatinine Ratio 20 Glucose 324 H D Calculated Osmolality 281 Calcium 8.4 Corrected Calcium 9.0 Phosphorus 2.3 L Magnesium 1.9 Total Bilirubin 0.2 L AST 10 ALT 12 Alkaline Phosphatase 104 Total Protein 5.5 L Albumin 3.3 L Globulin 2.2 L Albumin/Globulin Ratio 1.5 ABG Interpretation ABG results: 10/29/24 21:54 VBG pH 7.12 L VBG pCO2 22 L VBG pO2 54 VBG Base Excess -20 L Quality Measures Quality Measures VTE prophylaxis Assessment & Plan Assessment Current Active Medications: Generic Name Dose Route Start Last Admin Trade Name Freq PRN Reason Stop Dose Admin Acetaminophen 1,000 mg 10/30/24 18:39 Acetaminophen 500 Mg Tablet PO 11/28/24 22:12 Q6HR PRN FEVER > 101 or pain rated 1-3 Hydrocodone Bitart/Acetaminophen 1 tab 10/30/24 18:39 10/31/24 17:26 Hydrocodone/Apap 5/325 Tablet PO 11/04/24 18:38 1 tab Q4HR PRN Administration PAIN RATED 4-6 Heparin Sodium (Porcine) 5,000 unit 10/30/24 09:00 11/01/24 09:13 Heparin Sod Inj 5000 Unit/Ml Vial SC 11/13/24 08:59 5,000 unit Q12HR [facility] Administration Vancomycin HCl 1,000 mg/ 500 mls @ 171.429 mls/hr 10/31/24 22:00 11/01/24 09:13 Vancomycin HCl 750 mg/ Sodium IV 11/07/24 21:59 171.429 mls/hr Chloride BID@1000,2200 [facility] Administration Protocol Potassium Phosphate 15 mmol in 250 mls @ 62.5 mls/hr 11/01/24 08:45 11/01/24 15:12 Pot Phos 15 Mmol In Ns 250 Ml IV 11/01/24 16:44 62.5 mls/hr Q4H [facility] Administration Ceftriaxone Sodium 2 gm/ 50 mls @ 100 mls/hr 11/01/24 15:45 Sodium Chloride IV 11/08/24 15:44 QDAY [facility] Insulin Glargine 30 unit 11/01/24 09:00 11/01/24 09:13 Insulin Glargine (Lantus) 5 Unit/0.05 Ml (Per 5 Units) SC 12/01/24 08:59 30 unit BID [facility] Administration Insulin Human Lispro 0 unit 10/30/24 21:45 11/01/24 11:40 Insulin Lispro (Admelog) 1 Unit/0.01 Ml Unit SC 11/29/24 21:44 Not Given ACHS [facility] Protocol Insulin Human Lispro 22 unit 11/01/24 11:30 11/01/24 11:42 Insulin Lispro (Admelog) 1 Unit/0.01 Ml Unit SC 12/01/24 11:29 22 unit AC [facility] Administration Ondansetron HCl 4 mg 10/29/24 22:08 10/30/24 01:36 Ondansetron Inj 2 Mg/Ml Inj 2 Ml IV 11/28/24 22:07 4 mg Q8HR PRN Administration NAUSEA OR VOMITING Pantoprazole Sodium 40 mg 10/30/24 09:00 11/01/24 09:12 Pantoprazole 40 Mg Tablet PO 11/29/24 08:59 40 mg QDAY [facility] Administration Plan Mr. Dank Meier is a 39 year old male with a a past medical history significant for left knee ACL rupture, hyperlipidemia, hypertension, and IDDM who presented to the ED with a CC of nausea and vomiting of 2 days duration who was found to be in DKA and was subsequently admitted to the ICU for treatment and management, stabilized and downgraded to floors for further management. #Necrotizing fasciitis of the neck, s/p I&D Patient has abscess on the back of his neck and patient had tongue bite 1 month ago resulted in infection, which is. To starting axilla and then to his neck. Has had neck abscess for 2 weeks. Patient underwent surgical I&D on 10/30, was found to have necrotizing fasciitis, which was clean to degraded by surgery. Abscess cultures were taken. Blood cultures negative, wound culture positive for pansensitive Staph aureus. -Vancomycin pharmacy dosing (10/31-11/01) -Zosyn 3.375 g IV every 8 hours (10/31-11/01) -Rocephin 2 g IV daily (started 11/01) -Infectious disease consulted, follow-up -[place] 5 p.o. every 4 hours as needed for pain #DKA, resolved #Hx of poorly controlled IDDM. Patient is know to have resistant diabetes and poor compliance with medications. Home regimen includes insulin degludec 30u BID, lispro 20u TID, SSI, zepbound weekly, and metformin 750 Mg ER once daily. Patient initially admitted to ICU for DKA, anion gap closed and patient successfully transitioned to subcutaneous insulin. Blood sugar control remains poor, blood glucose consistently greater than 300. -ISS -Insulin glargine 30 twice daily -Insulin lispro 22 AC -Carb consistent low diet DVT prophylaxis: Heparin GI prophylaxis: Protonix Diet: Carb consistent low Lines: Peripheral IV Code status: Full code Plan of care discussed with senior resident Dr. Vasquez PGY?[address] Atkinson. Chris Story MD PGY?1 Attending Provider Attestation/Addendum I have discussed and was present for the essential components of the history, physical examination, diagnosis, and treatment plan with the resident. I agree with the patient's care as documented by the resident and amended herein by me. Xiang Atkinson DO. Patient seen and evaluated this AM. No acute events overnight, will continue to follow-up on cultures, adjust insulin as needed to bring blood glucose goal between 140 and 180, will also de-escalate to ceftriaxone at this time, wound cultures demonstrating pansensitive MSSA although this may not be indicative of everything that is in the open wound. Although this document has been carefully reviewed, there may still be some phonetic and other typographical errors. These errors are purely grammatical due to imperfections in the software program and should not be construed in any way to compromise the substance of the patient's medical care during this visit.
[2024-11-01 21:58] LABS: Vancomycin,Trough 7.1 mcg/mL (5.0-10.0)
[2024-11-02] VITALS: BP 143/90; PULSE 88; RESP 15; TEMP 36.2; O2SAT 97
[2024-11-02 04:00] VITALS: BP 141/95; PULSE 83; RESP 17; TEMP 36.2; O2SAT 96
[2024-11-02 05:49] LABS: Basophils % (Auto) 1 % (0-2.5); Eosinophils # (Auto) 0.2 Thou/mm3 (0.0-0.5); Eosinophils % (Auto) 3 % (0-10); Hematocrit 34.8 % (41.0-53.0); Hemoglobin 11.7 g/dL (13.5-16.0); Immature Granulocytes % (Auto) 3 % (0-0); Immature Granulocytes Auto 0.19 Thou/mm3 (0.00-0.00); Lymphocytes # (Auto) 1.5 Thou/mm3 (1.0-4.8); Lymphocytes % (Auto) 22 % (10-50); Mean Corpuscular HGB Conc 33.6 g/dl (31.0-37.0); Mean Corpuscular Hemoglobin 27.4 pg (25.0-35.0); Mean Corpuscular Volume 82 fL (80-100); Monocytes # (Auto) 0.7 Thou/mm3 (0.0-0.8); Monocytes % (Auto) 10 % (0-12); Neutrophils # (Auto) 4.2 Thou/mm3 (1.8-7.7); Neutrophils % (Auto) 61 % (37-80); Nucleated Red Blood Cell % 0 /100 WBC (0); Platelet Count 302 Thou/mm3 (140-440); RDW Standard Deviation 40.2 fL (35.1-43.9); Red Blood Count 4.27 Miln/mm3 (4.50-5.90); White Blood Count 6.8 Thou/mm3 (3.8-10.6)
[2024-11-02 06:00] VITALS: BMI 30.4
[2024-11-02 06:20] LABS: Alanine Aminotransferase 17 U/L (10-49); Albumin, Serum 3.6 gm/dL (3.5-5.0); Albumin/Globulin Ratio 1.6 (1.2-2.2); Alkaline Phosphatase 111 U/L (46-116); Anion Gap 6 (7-16); Aspartate Amino Transferase 10 U/L (0-34); BUN/Creatinine Ratio 19 Ratio (12-20); Bilirubin,Total 0.2 mg/dL (0.3-1.2); Blood Urea Nitrogen 13 mg/dL (9-23); Calcium 8.6 mg/dL (8.3-10.6); Calcium (Corrected) 8.9 mg/dL (8.5-10.1); Chloride 98 mMol/L (98-107); Creatinine (Component) 0.7 mg/dL (0.6-1.3); Estimated Creatinine Clearance 171.6 mL/min (>60); Globulin 2.2 gm/dL (2.3-3.5); Glucose 302 mg/dL (74-106); Magnesium 1.8 mg/dL (1.6-2.6); Osmolality,Calculated 277 (275-295); Phosphorous 2.8 mg/dL (2.4-5.1); Potassium 4.2 mMol/L (3.4-5.1); Sodium 133 mMol/L (136-145); Total Protein 5.8 gm/dL (5.7-8.2); eGFR > 60 See Note
[2024-11-02] MEDS: INSULIN LISPRO (AdmeLOG) 1 UNIT/0.01 ML UNIT SC ×2 (07:28→11:39)
[2024-11-02] MEDS: INSULIN LISPRO (AdmeLOG) 1 UNIT/0.01 ML UNIT 22 UNIT SC (07:29)
[2024-11-02 08:00] VITALS: BP 129/84; PULSE 81; PULSE 93; RESP 16; TEMP 36.2; O2SAT 97
[2024-11-02] MEDS: INSULIN GLARGINE (Lantus) 5 UNIT/0.05 ML (PER 5 UNITS) 30 UNIT SC (08:29)
[2024-11-02] MEDS: HEPARIN SOD INJ 5000 UNIT/ML VIAL SC (08:29)
[2024-11-02] MEDS: PANTOPRAZOLE 40 MG TABLET PO (08:30)
--- NOTE | 2024-11-02 09:30 | ESDS_ITS ---
Planned Discharge Date 11/02/24 DS: Providers Provider Date of admission: 10/29/24 22:08 Primary care physician: Physician No Primary/Family Admitting Provider: Jonah Hathc MD Attending Provider on Admission: Joshua Atkinson DO Consults: 10/29/24 22:04 Referral Registered Dietitian Routine Comment: 10/30/24 00:51 Referral Infection Control Stat Comment: skin infections Reason for Infection Control Referral: Other - See Comments 10/30/24 06:56 Referral Registered Dietitian Routine Comment: 10/30/24 11:47 Consult to General Surgery Urgent Comment: Concern for neck abscess drainage Consulting Provider: Milla Becker 10/31/24 11:58 Consult to Infectious Diseases Routine Comment: Consulting Provider: Sergey Mensah Attending Provider on DC: Joshua Atkinson DO Discharging Provider: Joshua Atkinson DO DS: Diagnosis Problem List Completed Was Problem List Reviewed/Reconciled?: Yes Hospital Course Hospital Course Hospital course: Mr. Dank Meier is a 39 year old male with a a past medical history significant for left knee ACL rupture, hyperlipidemia, hypertension, and IDDM who presented to the ED with a CC of nausea and vomiting of 2 days duration who was found to be in DKA and was subsequently admitted to the ICU for DKA that resolved and he was downgraded to medical floors. Patient was also found to have necrotizing fasciitis on neck and I&D was performed by surgeon. I&D was performed on 10/30. Abscess cultures were obtained which showed Staph aureus therefore he was continued on Zosyn and vancomycin. We will discontinue patient on Augmentin 875 mg twice daily. Blood cultures were negative. Pain control was given as needed. For patient's uncontrolled diabetes with A1c 11 we started him on Lantus 30 units twice daily and lispro 22 units daily however he remained uncontrolled therefore blood sugars were managed aggressively during hospital stay and additional regular insulin was given. Patient was also given wound care for his I&D for neck abscess. During hospital course kidney functions remained stable. Hemoglobin remained stable as well. Echo showed Normal LV size. Low normal LV function. Stage I diastolic dysfunction. Estimated EF 50- 55% Normal RV size and function. Trace MR, TR. We explained the patient that he will need to continue tight control on his blood sugar and Tresiba was given on discharge with 20 units 3 times daily with meals. Patient is medically stable to be discharged today to home.Will need outpatient follow up on wound care. #Problem list: #Necrotizing fasciitis of the neck, s/p I&D #DKA, resolved #Hx of poorly controlled IDDM #HFpEF 50-55% Discharge instructions: Take all medication as prescribed take Augmentin 875 mg 1 tablet twice daily for 6 most days to complete antibiotic course Start taking Tresiba 35 units at night and continue lispro 20 units 3 times daily with meals Use Baqsimi nasal spray if your blood sugars drop below 60 mg/dL Goal of blood sugar for fasting less than 125 mg/dL and Premeal less than 200 mg/dL Take your blood sugars before meals and in fasting Follow-up with your PCP as outpatient within 2 weeks Irrigate with normal saline and pack with iodoform guaze daily Follow-up with general surgeon, Dr. Hudson as outpatient within 2 weeks In case of emergency, call 911 and come back to the ED Patient was seen and discussed with attending Physician, Dr China Vasquez MD PGY2 Time Spent with Patient Time attestation: Total time spent providing and/or coordinating discharge services: Exam Vital Signs Temp Pulse Resp BP Pulse Ox O2 Del Method 97.1 F 83 17 141/95 H 96 Room Air 11/02/24 04:00 11/02/24 04:00 11/02/24 04:00 11/02/24 04:00 11/02/24 04:00 11/02/24 04:00 Narrative Exam Gen: Well-developed and well-nourished. Mildly diaphoretic. HEENT: NCAT, PERRLA, EOMI, MMM, anicteric conjunctivae. Back of neck swollen and firm, tender, erythematous. Site of I&D bandaged, no drainage. CVS: normal S1 and S2. RRR. No M/R/G. Resp: CTA B/L. No rhonchi, rales, crackles or wheezing. Abd: soft, non-tender, non-distended. MSK: Good ROM in BUE & BLE. No edema or rash. Scarring of right maxilla and lower back related to dog bite and subsequent abscesses. Neuro: CN II-XII grossly intact. Strength 5/5 in BUE & BLE. Alert and oriented x3. Psych: appropriate mood and affect. Discharge Plan Plan Patient Disposition: HOME (Self Care) Patient condition on transfer: Stable Care Plan Goals: Take all medication as prescribed take Augmentin 875 mg 1 tablet twice daily for 6 most days to complete antibiotic course Start taking Tresiba 40 units at night and continue lispro 20 units 3 times daily with meals Use Baqsimi nasal spray if your blood sugars drop below 60 mg/dL Goal of blood sugar for fasting less than 125 mg/dL and Premeal less than 200 mg/dL Take your blood sugars before meals and in fasting Follow-up with your PCP as outpatient within 2 weeks Irrigate with normal saline and pack with iodoform guaze daily Follow-up with general surgeon, Dr. Hudson [phone] as outpatient within 2 weeks In case of emergency, call 911 and come back to the ED Prescriptions/Referrals Prescriptions/Med Rec: New insulin degludec 100 unit/mL (3 mL) insulin pen 40 unit subcut HS Qty: 15 3RF Baqsimi 3 mg/actuation spray,non-aerosol 3 mg intranasal QDAY Qty: 1 0RF amoxicillin-pot clavulanate 875-125 mg tablet 1 tab PO BID 6 Days Qty: 12 0RF hydrocodone-acetaminophen 5-325 mg tablet 1 tab PO BID MDD 2 PRN (Reason: pain) Qty: 14 0RF Continued (DME) blood sugar diagnostic Strip See Rx Instructions .Route Qty: 100 0RF Rx Instructions: As directed insulin lispro 100 unit/mL insulin pen 20 unit subcut TID Qty: 15 1RF Rx Instructions: 20 units with meals (DME) Dexcom G7 Sensor Device See Rx Instructions .Route Qty: 1 0RF Rx Instructions: As directed (DME) FreeStyle Tank 3 Sensor Device See Rx Instructions .Route Qty: 2 3RF Rx Instructions: As directed (DME) lancets [OneTouch UltraSoft 2 Lancet] 30 gauge misc See Rx Instructions .Route Qty: 200 0RF Rx Instructions: As directed (DME) pen needle, diabetic [Comfort EZ Pen [place]] 33 gauge x 5/32 needle See Rx Instructions .Route Qty: 100 5RF Rx Instructions: Use TID and PRN as directed Discontinued testosterone cypionate 200 mg/mL oil 200 mg IM QMONTH MDD n/a Qty: 1 5RF hydrocodone-acetaminophen 5-325 mg tablet 1 tab PO Q8H MDD 15 mg PRN (Reason: pain) Qty: 60 0RF Referrals: No Primary/Family,Physician [Primary Care Provider] - Milla Becker MD [Physician] - Patient/Caregiver Discharge Instructions Education Materials: Using a Blood Sugar Log, Preventing Surgical Site Infections Print Language: Djiboutian Stand Alone Forms: Frida Award Info., Patient Portal Info Letter Discharge Order Discharge Orders: Discharge (Routine); Ordered 11/02/24 Ordered By: Jean-Pierre Vasquez Quality Discharge Quality Measures VTE prophylaxis MD Attestestation MD Attestation I have discussed and was present for the essential components of the discharge history, physical examination, diagnosis, and discharge treatment plan with the resident. I agree with the patient's discharge care as documented by the resident and amended herein by me. Xiang Atkinson, . The patient understood all discharge instructions, all questions were answered satisfactorily. The patient was instructed to return to the Emergency Department is symptoms worsened or persisted. Patient will be sent out with a short course of Augmentin, discharge cleared with surgery who agrees. Patient will need close monitoring with his blood glucose on an outpatient basis and better control considering A1c was 13.3. Patient was stable, afebrile, tolerating p.o. intake and ambulatory time of discharge. Although this document has been carefully reviewed, there may still be some phonetic and other typographical errors. These errors are purely grammatical due to imperfections in the software program and should not be construed in any way to compromise the substance of the patient's medical care during this visit.
[2024-11-02] MEDS: INSULIN HUM REGULAR 1 UNIT/0.01 ML (PER UNIT) 10 UNIT SC (10:59)
[2024-11-02 12:00] VITALS: BP 140/87; PULSE 86; PULSE 88; RESP 17; TEMP 36.1; O2SAT 95
[2024-11-02 13:40] VITALS: BP 119/84; PULSE 90; RESP 16; TEMP 36.3; O2SAT 99
[2024-11-02 13:56] VITALS: PULSE 86; RESP 16; RESP 95
== END 2024-11-02 14:05 | disposition home or self-care (01) | DRG 420 ==
LOC: SERX 21:55 → SERHOLD 22:46 → S2SX 10-30 00:29 → S2NX 10-30 18:18
PROVIDERS: Registered Nurse General Practice; Student in an Organized Health Care Education/Training Program; Surgery; Admitting Provider Internal Medicine; Emergency Provider Emergency Medicine; Visit Provider Student in an Organized Health Care Education/Training Program
PROC: 0JB50ZZ Excision of Left Neck Subcutaneous Tissue and Fascia, Open Approach (ICD-10-PCS; principal; 2024-10-30 15:30)
DX: E10.10 Type 1 diabetes mellitus with ketoacidosis without coma (principal); I10 Essential (primary) hypertension; F17.200 Nicotine dependence, unspecified, uncomplicated; E78.5 Hyperlipidemia, unspecified; N17.9 Acute kidney failure, unspecified; E87.1 Hypo-osmolality and hyponatremia; E87.5 Hyperkalemia; E86.0 Dehydration; L02.11 Cutaneous abscess of neck; M72.6 Necrotizing fasciitis; D64.9 Anemia, unspecified; B95.61 Methicillin susceptible Staphylococcus aureus infection as the cause of diseases classified elsewhere; I50.30 Unspecified diastolic (congestive) heart failure; I11.0 Hypertensive heart disease with heart failure; W54.0XXA Bitten by dog, initial encounter; F15.10 Other stimulant abuse, uncomplicated
CPT/HCPCS: 36415; 70491; 80053; 80069; 80202; 80307; 81001; 82010; 82803; 83036; 83605; 83690; 83735; 83880; 84100; 84145; 84484; 85025; 85610; 85730; 86331; 86635; 87040; 87070; 87075; 87077; 87081; 87086; 87186; 87205; 93005; 93306; 96365; 99285; A4217; A4649; J0696; J1643; J1815; J1885; J2250; J2371; J2405; J2543; J2704; J2765; J3010; J3371; J3475; J3480; J3490; J7030; J7040; J7050; J7120; J7121; J7999; Q9967; S0077; A9270; J0737; J1805

== ENCOUNTER 2024-11-05 14:04 | Outpatient (AMB) | payer MEDICAID, SELFPAY ==
[2024-11-05 14:13] VITALS: BP 110/71; PULSE 113; RESP 18; TEMP 36.8; O2SAT 98
--- NOTE | 2024-11-05 14:13 | PD.RESCLINIC ---
Vital Signs 11/05/24 14:13 Weight 93.213 kg Weight Measurement Method Standing Scale BP 110/71 Blood Pressure Source Automatic Cuff Blood Pressure Location Left Upper Arm Position Sitting Respiration 18 Pulse 113 H Pulse Source Monitor Temp 98.2 F Temp Source Oral Pulse Oximetry (%) 98 Oxygen Delivery Method Room Air Allergies/Meds Allergies & Medications Allergies No Known Allergies Allergy (Verified 11/05/24 14:25) Medication Reconciliation amoxicillin 875 mg-potassium clavulanate 125 mg tablet 1 tab PO BID 6 days #12 tabs 11/02/24 [Rx Confirmed 11/05/24] blood-glucose sensor (FreeStyle Tank 3 Sensor device) #2 ea 11/02/24 [Rx Confirmed 11/05/24] hydrocodone 5 mg-acetaminophen 325 mg tablet 1 tab PO BID PRN pain #14 tabs 11/02/24 [Rx Confirmed 11/05/24] blood sugar diagnostic #100 ea 11/05/24 [Rx] blood-glucose sensor (Dexcom G7 Sensor device) #1 ea 11/05/24 [Rx] glucagon 3 mg/actuation nasal spray (Baqsimi) 3 mg intranasal QDAY #1 ea 11/05/24 [Rx] insulin degludec 100 unit/mL (3 mL) subcutaneous pen 52 unit (0.52 mL) subcut HS #15 mL 11/05/24 [Rx] insulin lispro 100 unit/mL subcutaneous pen 16 unit (0.16 mL) subcut TIDWMEAL #15 mL 11/05/24 [Rx] lancets 30 gauge (OneTouch UltraSoft 2 Lancet) #200 ea 11/05/24 [Rx] pen needle, diabetic 33 gauge x 5/32 (Comfort EZ Pen [place]) #100 ea 11/05/24 [Rx] sodium hypochlorite 0.125 % solution (Dakin's Solution) 1 applic topical QDAY #473 mL 11/05/24 [Rx] MA Intake Visit Data Collection New Patient or Established: Established Patient (seen at [facility] within 3 years) Seen by Clinical Staff ONLY (RN/MA): No Pain Present Currently: Yes Pain Location: Neck Pain scale:: 6 Pain Scale Used: Dickey-Hanna/Numerical Kier Operator Required: No PCP or OBGYN visit in last 3 months: Yes Do You Feel Safe at Home: Yes Authorities Contacted: N/A Smoking Status Smoking Status: Never smoker Immunization / Flu Flu Vaccine in the Last 12 Months: No Flu Vaccine Exclusion Criteria: No Exclusion Criteria Past Medical History Past Medical History NEUROLOGIC: Negative Neurological Disorders or Seizures CARDIAC: Positive Cardiac Disorders, Hypercholesterolemia and Hypertension; Negative Congestive Heart Failure RESPIRATORY: Negative Chronic Obstructive Pulmonary Disease (COPD) or Asthma GASTROINTESTINAL: Negative Gastrointestinal Disorders GENITOURINARY: Negative Genitourinary Disorders or Renal Disease ENDOCRINE: Positive Endocrine Disorders and Diabetes Mellitus Type 2; Negative Diabetes Mellitus Type 1 HEMATOLOGIC: Negative Blood Disorders or Sickle Cell Disease PSYCHO/SOCIAL: Positive Depression and Anxiety OTHER HISTORY: Positive Falls; Negative Blood Transfusions, Anesthesia Reactions or Cancer Surgical History SURGICAL: Positive Tonsillectomy Social History SMOKING STATUS: Smoking status: Never smoker ALCOHOL: Alcohol Intake: Current ALCOHOL FREQUENCY: Alcohol Intake Frequency: holidays/special occasions only HOUSING: Housing: Apartment LIVES WITH: Lives With: Significant Other Patient Portal Questionaires Social History Living Situation History Housing: Apartment Housing Other:: Pt lives with family Tobacco History Smoking Status: Never smoker Alcohol History Alcohol Intake: Current Alcohol Intake Frequency: holidays/special occasions only Substance Use History Substance Use: smokes meth Domestic Abuse History Do You Feel Safe at Home: Yes Review of Systems Report any current symptoms Only answer those that you have currently: Past Medical History Past Medical History Have you ever been diagnosed with any of the following: Neurological Problems Seizures: No Cardiology Problems Hypercholesterolemia: Yes Congestive Heart Failure: No Hypertension: Yes Respiratory Problems Chronic Obstructive Pulmonary Disease (COPD): No Asthma: No Genital/Urinary Problems Renal Disease: No Endocrine Problems Diabetes Mellitus Type 1: No Diabetes Mellitus Type 2: Yes Blood Problems Sickle Cell Disease: No Psychologic Problems Depression: Yes Anxiety: Yes Other Problems Falls: Yes Blood Transfusions: No Anesthesia Reactions: No Cancer: No History of Present Illness HPI Narrative 39-year-old male with past medical history of left knee ACL rupture, hyperlipidemia, hypertension, and IDDM was seen in [email or web address] today for follow-up after a recent hospital discharge on 11/02/2024 due to DKA and neck abscess. In the hospital patient was in the ICU for his DKA management and he was found to have necrotizing fasciitis abscess on his neck for which I&D was performed on 10/30/2024 general surgeon. Abscess cultures grew Staph aureus for which patient received IV antibiotics and he was discharged on Augmentin 875 mg 1 tablet twice daily which she has still not finished. Patient was told to follow-up with his general surgeon, but he has not had an appointment as of now. He has been having daily changes of his wound dressing and today his wound looks clean with still some discharge, but clean borders. Now for his blood sugars he states that he was using Tresiba 35 units twice daily and he was using lispro around 5 to 10 units with every meal daily. Even on those this insulin regimen he stated that his blood sugars in the morning were around the 200s to 300s and Premeal blood sugars were in around the same region. Given this he has been using around 100 units of insulin throughout the day. His insulin regimen will be adjusted to 52 units of Tresiba at night and 16 units of insulin lispro 3 times daily with meals. He was counseled on hypoglycemia symptoms at that if his blood sugars are less than 100 in the morning to adjust his insulin regimen. will see him in 1 week. Review of Systems Review of Systems Narrative Review of Systems: Constitutional: Denies sweats, Denies weight loss/gain, Denies fever, Denies chills. HEENT: Denies hearing loss, Denies ear pain, Denies postnasal drip, Denies double vision, Denies blurry vision. Respiratory: Denies shortness of breath, Denies cough, Denies wheezing. Cardiovascular: Denies chest pain, Denies palpitations, Denies sudden loss of consciousness. GI: Denies blood in stool, Denies constipation, Denies abdominal pain, Denies difficulty swallowing, Admits nausea, Denies vomit. : Denies urinary incontinence, Denies pain while urinating, Denies increased urinary frequency. MSK: Admits joint pain, Admits joint swelling, Denies numbness. Skin: Denies rash, Denies itching, Denies easy bruising, Admits mass. Neuro: Denies headaches, Denies dizziness, Denies seizures. Objective/Exam General General Appearance: alert, comfortable, cooperative and well developed Head Head exam: atraumatic and normocephalic Eye Eye exam: Present normal appearance, PERRL and EOMI ENT ENT exam: Present normal exam, normal oropharynx and mucous membranes dry Neck Neck exam: Present other (Dressing covering open wound from I&D on 10/30/2024. Wound appears to be healing with some discharge, but is nontender to light palpation. No erythema is appreciated in the borders.) Resp Respiratory exam: Present normal lung sounds bilaterally Card Cardiovascular exam: Present regular rate, normal rhythm and normal heart sounds Abdominal Abdominal exam: Present soft and normal bowel sounds Extremities Extremities exam: Present normal inspection, full ROM, tenderness (R knee ) and joint swelling (R knee) Neuro Neurological exam: Present alert, oriented X3 and CN II-XII intact Psych Psychiatric exam: Present normal affect and normal mood Skin Skin exam: Present intact and normal color Assessment & Plan Diagnosis / Problem List (1) Abscess, neck: Status: Acute Assessment & Plan: -Patient had I & D on 10/30/2024 by general surgery -Abscess cultures grew S. aureus -Dressing covering open wound from I&D on 10/30/2024. Wound appears to be healing with some discharge, but is nontender to light palpation. No erythema is appreciated in the borders. Plan: -Continue augmentin -F/U with general surgeon -Referred to wound clinic -Advised to go to ER if develops fever, excessive discharge, or excrutiating pain in area. (2) DKA (diabetic ketoacidosis): Status: Acute Qualifiers: Diabetes mellitus complication detail: without coma Diabetes mellitus type: type 2 Qualified Code(s): E11.10 - Type 2 diabetes mellitus with ketoacidosis without coma Assessment & Plan: -he was using Tresiba 35 units twice daily and he was using lispro around 5 to 10 units with every meal daily -his blood sugars in the morning were around the 200s to 300s and Premeal blood sugars were in around the same region after discharge Plan: -52 units of Tresiba at night -16 units of insulin lispro 3 times daily with meals -Baqsimi ordered -Dexacom ordered -Counseled on hypoglycemic symptoms and precautions Orders: Referrals Wound Healing Bob Browning MD L02.11 - Cutaneous abscess of neck Office Procedures [facility] Level of Care Nursing/Assessment Patient Status: Established Patient Nursing Assessment/Reassessment: Medication Reconciliation, Update PMH in EMR and Vital Signs Coordination of Care: Complex Care and Chronic Disease 1-5, Consent,records obtained, informed consent, Education Simp Pt/Fam, 1 Ins Authorization, Ref for ancillary service, Results/Orders obtained and Staff clarify orders Established Patient Charge Established Patient Point Assignment: 125 Established Patient Point Charge: EP Level 4 ([id number])
== END 2024-11-05 15:01 | disposition home or self-care (01) ==
LOC: HODAHC 14:04
PROVIDERS: Supervising Provider Internal Medicine
DX: L02.11 Cutaneous abscess of neck (principal); E11.10 Type 2 diabetes mellitus with ketoacidosis without coma; Z79.4 Long term (current) use of insulin; I10 Essential (primary) hypertension; E78.5 Hyperlipidemia, unspecified
CPT/HCPCS: 99214; G0463

== ENCOUNTER → 2024-11-19 | Outpatient (CLI) | payer MEDICAID, SELFPAY | END | disposition home or self-care (01) | PROVIDERS: Visit Provider Student in an Organized Health Care Education/Training Program | DX: S11.85XA Open bite of other specified part of neck, initial encounter (principal); W54.0XXA Bitten by dog, initial encounter; N49.2 Inflammatory disorders of scrotum; F17.200 Nicotine dependence, unspecified, uncomplicated; Z79.4 Long term (current) use of insulin; Z79.84 Long term (current) use of oral hypoglycemic drugs; E03.9 Hypothyroidism, unspecified | CPT/HCPCS: 97597; 99213; A9270; G0463 ==

== ENCOUNTER 2024-11-26 14:28 | Outpatient (AMB) | payer MEDICAID, SELFPAY ==
[2024-11-26 14:35] VITALS: BP 125/82; PULSE 98; RESP 18; TEMP 36.5; O2SAT 98
--- NOTE | 2024-11-26 14:35 | PD.RESCLINIC ---
Vital Signs 11/26/24 14:35 Weight 98.43 kg Weight Measurement Method Standing Scale BP 125/82 Blood Pressure Source Automatic Cuff Blood Pressure Location Right Upper Arm Position Sitting Respiration 18 Pulse 98 Pulse Source Monitor Temp 97.7 F Temp Source Oral Pulse Oximetry (%) 98 Oxygen Delivery Method Room Air Allergies/Meds Allergies & Medications Allergies No Known Allergies Allergy (Verified 11/26/24 14:37) Medication Reconciliation blood-glucose sensor (FreeStyle Tank 3 Sensor device) #2 ea 11/02/24 [Rx Confirmed 11/26/24] blood sugar diagnostic #100 ea 11/05/24 [Rx Confirmed 11/26/24] blood-glucose sensor (Dexcom G7 Sensor device) #1 ea 11/05/24 [Rx Confirmed 11/26/24] glucagon 3 mg/actuation nasal spray (Baqsimi) 3 mg intranasal QDAY #1 ea 11/05/24 [Rx Confirmed 11/26/24] insulin degludec 100 unit/mL (3 mL) subcutaneous pen 52 unit (0.52 mL) subcut HS #15 mL 11/05/24 [Rx Confirmed 11/26/24] insulin lispro 100 unit/mL subcutaneous pen 16 unit (0.16 mL) subcut TIDWMEAL #15 mL 11/05/24 [Rx Confirmed 11/26/24] lancets 30 gauge (OneTouch UltraSoft 2 Lancet) #200 ea 11/05/24 [Rx Confirmed 11/26/24] pen needle, diabetic 33 gauge x 5/32 (Comfort EZ Pen [place]) #100 ea 11/05/24 [Rx Confirmed 11/26/24] sodium hypochlorite 0.125 % solution (Dakin's Solution) 1 applic topical QDAY #473 mL 11/05/24 [Rx Confirmed 11/26/24] hydrocodone 5 mg-acetaminophen 325 mg tablet 1 tab PO BID PRN pain #30 tabs 11/25/24 [Rx Confirmed 11/26/24] MA Intake Visit Data Collection Seen by Clinical Staff ONLY (RN/MA): No Pain Present Currently: Yes Pain Location: Neck Pain scale:: 5 Pain Scale Used: Dickey-Hanna/Numerical Do You Feel Safe at Home: Yes Smoking Status Smoking Status: Never smoker Immunization / Flu Flu Vaccine in the Last 12 Months: No Flu Vaccine Exclusion Criteria: No Exclusion Criteria Past Medical History Past Medical History NEUROLOGIC: Negative Neurological Disorders or Seizures CARDIAC: Positive Cardiac Disorders, Hypercholesterolemia and Hypertension; Negative Congestive Heart Failure RESPIRATORY: Negative Chronic Obstructive Pulmonary Disease (COPD) or Asthma GASTROINTESTINAL: Negative Gastrointestinal Disorders GENITOURINARY: Negative Genitourinary Disorders or Renal Disease ENDOCRINE: Positive Endocrine Disorders and Diabetes Mellitus Type 2; Negative Diabetes Mellitus Type 1 HEMATOLOGIC: Negative Blood Disorders or Sickle Cell Disease PSYCHO/SOCIAL: Positive Depression and Anxiety OTHER HISTORY: Positive Falls; Negative Blood Transfusions, Anesthesia Reactions or Cancer Surgical History SURGICAL: Positive Tonsillectomy Social History SMOKING STATUS: Smoking status: Never smoker ALCOHOL: Alcohol Intake: Current ALCOHOL FREQUENCY: Alcohol Intake Frequency: holidays/special occasions only HOUSING: Housing: Apartment LIVES WITH: Lives With: Significant Other Patient Portal Questionairluis Social History Living Situation History Housing: Apartment Housing Other:: Pt lives with family Tobacco History Smoking Status: Never smoker Alcohol History Alcohol Intake: Current Alcohol Intake Frequency: holidays/special occasions only Substance Use History Substance Use: smokes meth Domestic Abuse History Do You Feel Safe at Home: Yes Review of Systems Report any current symptoms Only answer those that you have currently: Past Medical History Past Medical History Have you ever been diagnosed with any of the following: Neurological Problems Seizures: No Cardiology Problems Hypercholesterolemia: Yes Congestive Heart Failure: No Hypertension: Yes Respiratory Problems Chronic Obstructive Pulmonary Disease (COPD): No Asthma: No Genital/Urinary Problems Renal Disease: No Endocrine Problems Diabetes Mellitus Type 1: No Diabetes Mellitus Type 2: Yes Blood Problems Sickle Cell Disease: No Psychologic Problems Depression: Yes Anxiety: Yes Other Problems Falls: Yes Blood Transfusions: No Anesthesia Reactions: No Cancer: No Office Procedures [facility] Level of Care Nursing/Assessment Patient Status: Established Patient Nursing Assessment/Reassessment: Medication Reconciliation, Update PMH in EMR and Vital Signs Coordination of Care: Complex Care and Chronic Disease 1-5, Consent,records obtained, informed consent, Education Simp Pt/Fam and Staff clarify orders Established Patient Charge Established Patient Point Assignment: 85 Established Patient Point Charge: Level 3 (78-115)
--- NOTE | 2024-11-26 14:41 | ACNOTE_ITS ---
Vital Signs 11/26/24 14:35 11/26/24 14:42 Weight 98.43 kg Weight Measurement Method Standing Scale BP 125/82 125/82 Blood Pressure Source Automatic Cuff Blood Pressure Location Right Upper Arm Position Sitting Respiration 18 18 Pulse 98 98 Pulse Source Monitor Temp 97.7 F 97.7 F Temp Source Oral Pulse Oximetry (%) 98 98 Oxygen Delivery Method Room Air Allergies/Meds Allergies & Medications Allergies No Known Allergies Allergy (Verified 11/26/24 14:37) Medication Reconciliation blood-glucose sensor (FreeStyle Tank 3 Sensor device) #2 ea 11/02/24 [Rx Confirmed 11/26/24] blood sugar diagnostic #100 ea 11/05/24 [Rx Confirmed 11/26/24] blood-glucose sensor (Dexcom G7 Sensor device) #1 ea 11/05/24 [Rx Confirmed 11/26/24] glucagon 3 mg/actuation nasal spray (Baqsimi) 3 mg intranasal QDAY #1 ea 11/05/24 [Rx Confirmed 11/26/24] insulin degludec 100 unit/mL (3 mL) subcutaneous pen 52 unit (0.52 mL) subcut HS #15 mL 11/05/24 [Rx Confirmed 11/26/24] insulin lispro 100 unit/mL subcutaneous pen 16 unit (0.16 mL) subcut TIDWMEAL #15 mL 11/05/24 [Rx Confirmed 11/26/24] lancets 30 gauge (OneTouch UltraSoft 2 Lancet) #200 ea 11/05/24 [Rx Confirmed 11/26/24] pen needle, diabetic 33 gauge x 5/32 (Comfort EZ Pen [place]) #100 ea 11/05/24 [Rx Confirmed 11/26/24] sodium hypochlorite 0.125 % solution (Dakin's Solution) 1 applic topical QDAY #473 mL 11/05/24 [Rx Confirmed 11/26/24] hydrocodone 5 mg-acetaminophen 325 mg tablet 1 tab PO BID PRN pain #60 tabs 11/26/24 [Rx] tirzepatide (weight loss) 2.5 mg/0.5 mL subcutaneous pen injector (Zepbound) 2.5 mg (0.5 mL) subcut QWEEK #2 mL 11/26/24 [Rx] MA Intake Visit Data Collection PCP or OBGYN visit in last 3 months: Yes Do You Feel Safe at Home: Yes Smoking Status Smoking Status: Never smoker Immunization / Flu Flu Vaccine in the Last 12 Months: No Flu Vaccine Exclusion Criteria: No Exclusion Criteria Past Medical History Past Medical History NEUROLOGIC: Negative Neurological Disorders or Seizures CARDIAC: Positive Cardiac Disorders, Hypercholesterolemia and Hypertension; Negative Congestive Heart Failure RESPIRATORY: Negative Chronic Obstructive Pulmonary Disease (COPD) or Asthma GASTROINTESTINAL: Negative Gastrointestinal Disorders GENITOURINARY: Negative Genitourinary Disorders or Renal Disease ENDOCRINE: Positive Endocrine Disorders and Diabetes Mellitus Type 2; Negative Diabetes Mellitus Type 1 HEMATOLOGIC: Negative Blood Disorders or Sickle Cell Disease PSYCHO/SOCIAL: Positive Depression and Anxiety OTHER HISTORY: Positive Falls; Negative Blood Transfusions, Anesthesia Reactions or Cancer Surgical History SURGICAL: Positive Tonsillectomy Social History SMOKING STATUS: Smoking status: Never smoker ALCOHOL: Alcohol Intake: Current ALCOHOL FREQUENCY: Alcohol Intake Frequency: holidays/special occasions only HOUSING: Housing: Apartment LIVES WITH: Lives With: Significant Other Patient Portal Questionairluis Social History Living Situation History Housing: Apartment Housing Other:: Pt lives with family Tobacco History Smoking Status: Never smoker Alcohol History Alcohol Intake: Current Alcohol Intake Frequency: holidays/special occasions only Substance Use History Substance Use: smokes meth Domestic Abuse History Do You Feel Safe at Home: Yes Review of Systems Report any current symptoms Only answer those that you have currently: Past Medical History Past Medical History Have you ever been diagnosed with any of the following: Neurological Problems Seizures: No Cardiology Problems Hypercholesterolemia: Yes Congestive Heart Failure: No Hypertension: Yes Respiratory Problems Chronic Obstructive Pulmonary Disease (COPD): No Asthma: No Genital/Urinary Problems Renal Disease: No Endocrine Problems Diabetes Mellitus Type 1: No Diabetes Mellitus Type 2: Yes Blood Problems Sickle Cell Disease: No Psychologic Problems Depression: Yes Anxiety: Yes Other Problems Falls: Yes Blood Transfusions: No Anesthesia Reactions: No Cancer: No History of Present Illness HPI Narrative 39-year-old male with past medical history of left knee ACL rupture, hyperlipidemia, hypertension, and IDDM was seen in the [facility] today for follow-up on his blood glucose and abscess. Patient stated that his blood sugars have still been in the high 300s to 400s. Check patient's Dexcom with him and his blood sugars were mostly on the 400 range with his A1c being 12.8% and his average blood glucose was 396. Patient stated he has been using Tresiba 30 units twice daily and that he had been using 20 units of insulin short acting with meals. I reminded the patient that his regimen have been changed last time and he actually agreed that he had reminded that have bee n changed, but that he had forgotten. He also stated that he had been eating what ever was available at his work which could include or hamburgers, mac & cheese, and fries. Given patient's poor compliance with his diet and incorrect use of insulin I again explained the dosages as well as the importance of maintaining adequate diet to control better his blood sugars. Patient agreed to keep a log of his meals as well as his blood sugars and we will follow-up with him next week. Patient stated that he needed refill of his phone as well as Cypress for his knee pain. He saw the wound clinic today and stated that his wound was healing adequately. Will refer patient to orthopedic surgeon as well as to manager review since he stated that the commissioner public works stated he had hemorrhage in the back of his eye. He had no other complaints at this time. Review of Systems Review of Systems Narrative Review of Systems: Constitutional: Denies sweats, Denies weight loss/gain, Denies fever, Denies chills. HEENT: Denies hearing loss, Denies ear pain, Denies postnasal drip, Denies double vision, Denies blurry vision. Respiratory: Denies shortness of breath, Denies cough, Denies wheezing. Cardiovascular: Denies chest pain, Denies palpitations, Denies sudden loss of consciousness. GI: Denies blood in stool, Denies constipation, Denies abdominal pain, Denies difficulty swallowing, Denies nausea, Denies vomit. : Denies urinary incontinence, Denies pain while urinating, Denies increased urinary frequency. MSK: Admits joint pain, Admits joint swelling, Denies numbness. Skin: Denies rash, Denies itching, Denies easy bruising. Neuro: Denies headaches, Denies dizziness, Denies seizures. Objective/Exam General General Appearance: alert, comfortable, cooperative and well developed Head Head exam: atraumatic and normocephalic Eye Eye exam: Present normal appearance, PERRL and EOMI ENT ENT exam: Present normal exam, normal oropharynx and mucous membranes dry Neck Neck exam: Present other (clean dressing over wound from I&D on 10/30/2024) Resp Respiratory exam: Present normal lung sounds bilaterally Card Cardiovascular exam: Present regular rate, normal rhythm and normal heart sounds Abdominal Abdominal exam: Present soft and normal bowel sounds Extremities Extremities exam: Present normal inspection, full ROM, tenderness (R knee ) and joint swelling (R knee) Neuro Neurological exam: Present alert, oriented X3 and CN II-XII intact Psych Psychiatric exam: Present normal affect and normal mood Skin Skin exam: Present intact and normal color Assessment & Plan Diagnosis / Problem List (1) ACL (anterior cruciate ligament) rupture: Status: Acute Qualifiers: Encounter type: initial encounter Laterality: left Qualified Code(s): S83.512A - Sprain of anterior cruciate ligament of left knee, initial encounter Assessment & Plan: Still experiencing pain Plan: -Continue with Cypress for pain as needed. ? Refer to orthopedic surgeon. (2) Diabetes mellitus type 2 with complications, uncontrolled: Status: Acute Assessment & Plan: ? Reviewed Dexcom with patient and his average sugar was 396. ? Admitted to not maintaining a low carbohydrate or sugar-free diet. ? Patient stated that he saw the commissioner public [employer] and that he was told he had hemorrhoids in the back of his eye and that he should be seen by the manager review. ?Patient most likely is developing diabetic retinopathy. Plan: ? Change patient's insulin regimen to Tresiba 26 units twice daily and 16 units of lispro 3 times daily with meals ? Continue Cipro ? Reinforced low carbohydrate and sugar free diet ? Refer to manager review Orders: Referrals Ophthalmology Bob Browning MD Orthopedics Bob Browning MD S83.512A - Sprain of anterior cruciate ligament of left knee, initial encounter Additional Assessment Internal Medicine Attending Note: Case discussed with and agree with note and management plan of Resident Physician as per Resident's Note above. Issues of concern for present visit are as follows: Follow-up visit. Diabetes self-care reviewed including diet, exercise, footcare, eye care, home glucose testing. Patient's glucose readings continue to run very high. Apparently also has diabetic retinopathy per commissioner [employer]. Needs to see ophthalmology. Patient reeducated regarding diet measures. We will titrate his insulin doses, and have asked for the patient to take photos of the insulin dose that he is administering as well as him actually administering it, so that we can verify that he is getting the right dose and that it is being delivered properly. We will again make a referral to orthopedic surgery for his ACL tear. Cypress refilled for pain as needed. Noah Turner MD Physician Billing Established Patient Established Patient: E/M Level 3-CPT 37620 Office Procedures [facility] [place] Level of Care Nursing/Assessment Patient Status: Established Patient Nursing Assessment/Reassessment: Medication Reconciliation, Update PMH in EMR and Vital Signs Coordination of Care: Complex Care and Chronic Disease 1-5, Consent,records obtained, informed consent, Education Simp Pt/Fam, Lab and Imaging orders and Staff clarify orders Established Patient Charge Established Patient Point Assignment: 100 Established Patient Point Charge: EP Level 3 (80-115)
[2024-11-26 14:42] VITALS: BP 125/82; PULSE 98; RESP 18; TEMP 36.5; O2SAT 98
== END 2024-11-26 15:07 | disposition home or self-care (01) ==
LOC: HODAHC 14:28
PROVIDERS: Supervising Provider Internal Medicine
DX: E11.65 Type 2 diabetes mellitus with hyperglycemia (principal); E11.319 Type 2 diabetes mellitus with unspecified diabetic retinopathy without macular edema; Z79.4 Long term (current) use of insulin; S83.512D Sprain of anterior cruciate ligament of left knee, subsequent encounter; X58.XXXD Exposure to other specified factors, subsequent encounter; I10 Essential (primary) hypertension; E78.5 Hyperlipidemia, unspecified
CPT/HCPCS: 99213; G0463

== ENCOUNTER → 2024-11-26 | Outpatient (CLI) | payer MEDICAID, SELFPAY | END | disposition home or self-care (01) | LOC: SWHD 08:17 | PROVIDERS: PCP Family Medicine; Referring Provider Family Medicine; Visit Provider Student in an Organized Health Care Education/Training Program | DX: S11.85XA Open bite of other specified part of neck, initial encounter (principal); X58.XXXA Exposure to other specified factors, initial encounter; N49.2 Inflammatory disorders of scrotum; F17.200 Nicotine dependence, unspecified, uncomplicated; Z79.4 Long term (current) use of insulin; Z79.84 Long term (current) use of oral hypoglycemic drugs; E03.9 Hypothyroidism, unspecified | CPT/HCPCS: 11042; A9270 ==

== ENCOUNTER 2024-12-03 14:51 | Outpatient (AMB) | payer MEDICAID, SELFPAY ==
[2024-12-03 15:07] VITALS: BP 144/89; PULSE 108; RESP 17; TEMP 36.6; O2SAT 98; BMI 29.0
--- NOTE | 2024-12-03 15:07 | PD.RESCLINIC ---
Vital Signs 12/03/24 15:07 Height 1.83 m Height Method Stated Weight 97.296 kg Weight Measurement Method Standing Scale BMI 29.0 BP 144/89 H Blood Pressure Source Automatic Cuff Blood Pressure Location Left Upper Arm Position Sitting Respiration 17 Pulse 108 H Pulse Source Monitor Temp 97.8 F Temp Source Oral Pulse Oximetry (%) 98 Oxygen Delivery Method Room Air Allergies/Meds Allergies & Medications Allergies No Known Allergies Allergy (Verified 12/03/24 15:10) Medication Reconciliation blood-glucose sensor (FreeStyle Tank 3 Sensor device) #2 ea 11/02/24 [Rx Confirmed 12/03/24] blood sugar diagnostic #100 ea 11/05/24 [Rx Confirmed 12/03/24] blood-glucose sensor (Wan Shidao management G7 Sensor device) #1 ea 11/05/24 [Rx Confirmed 12/03/24] glucagon 3 mg/actuation nasal spray (Baqsimi) 3 mg intranasal QDAY #1 ea 11/05/24 [Rx Confirmed 12/03/24] insulin degludec 100 unit/mL (3 mL) subcutaneous pen 52 unit (0.52 mL) subcut HS #15 mL 11/05/24 [Rx Confirmed 12/03/24] insulin lispro 100 unit/mL subcutaneous pen 16 unit (0.16 mL) subcut TIDWMEAL #15 mL 11/05/24 [Rx Confirmed 12/03/24] lancets 30 gauge (OneTouch UltraSoft 2 Lancet) #200 ea 11/05/24 [Rx Confirmed 12/03/24] pen needle, diabetic 33 gauge x 5/32 (Comfort EZ Pen [place]) #100 ea 11/05/24 [Rx Confirmed 12/03/24] sodium hypochlorite 0.125 % solution (Dakin's Solution) 1 applic topical QDAY #473 mL 11/05/24 [Rx Confirmed 12/03/24] hydrocodone 5 mg-acetaminophen 325 mg tablet 1 tab PO BID PRN pain #60 tabs 11/26/24 [Rx Confirmed 12/03/24] tirzepatide (weight loss) 2.5 mg/0.5 mL subcutaneous pen injector (Zepbound) 2.5 mg (0.5 mL) subcut QWEEK #2 mL 11/26/24 [Rx Confirmed 12/03/24] amoxicillin 875 mg-potassium clavulanate 125 mg tablet 1 tab PO BID 14 days #28 tabs 12/03/24 [Rx] doxycycline hyclate 100 mg capsule 100 mg PO BID 14 days #28 caps 12/03/24 [Rx] mupirocin 2 % topical ointment 1 applic topical TID #22 grams 12/03/24 [Rx] MA Intake Visit Data Collection New Patient or Established: Established Patient (seen at [facility] within 3 years) Seen by Clinical Staff ONLY (RN/MA): No Pain Present Currently: No Pain scale:: 0 Pain Scale Used: Dickey-Hanna/Numerical Director Of Leadership Development Required: No PCP or OBGYN visit in last 3 months: Yes Hx Now: No Do You Feel Safe at Home: Yes Authorities Contacted: N/A Smoking Status Smoking Status: Never smoker Immunization / Flu Flu Vaccine in the Last 12 Months: No Flu Vaccine Exclusion Criteria: No Exclusion Criteria Past Medical History Past Medical History NEUROLOGIC: Negative Neurological Disorders or Seizures CARDIAC: Positive Cardiac Disorders, Hypercholesterolemia and Hypertension; Negative Congestive Heart Failure RESPIRATORY: Negative Chronic Obstructive Pulmonary Disease (COPD) or Asthma GASTROINTESTINAL: Negative Gastrointestinal Disorders GENITOURINARY: Negative Genitourinary Disorders or Renal Disease ENDOCRINE: Positive Endocrine Disorders and Diabetes Mellitus Type 2; Negative Diabetes Mellitus Type 1 HEMATOLOGIC: Negative Blood Disorders or Sickle Cell Disease PSYCHO/SOCIAL: Positive Depression and Anxiety OTHER HISTORY: Positive Falls; Negative Blood Transfusions, Anesthesia Reactions or Cancer Surgical History SURGICAL: Positive Tonsillectomy Social History SMOKING STATUS: Smoking status: Never smoker ALCOHOL: Alcohol Intake: Current ALCOHOL FREQUENCY: Alcohol Intake Frequency: holidays/special occasions only HOUSING: Housing: Apartment LIVES WITH: Lives With: Significant Other Patient Portal Questionopal Social History Living Situation History Housing: Apartment Housing Other:: Pt lives with family Tobacco History Smoking Status: Never smoker Alcohol History Alcohol Intake: Current Alcohol Intake Frequency: holidays/special occasions only Substance Use History Substance Use: smokes meth Domestic Abuse History Do You Feel Safe at Home: Yes Review of Systems Report any current symptoms Only answer those that you have currently: Past Medical History Past Medical History Have you ever been diagnosed with any of the following: Neurological Problems Seizures: No Cardiology Problems Hypercholesterolemia: Yes Congestive Heart Failure: No Hypertension: Yes Respiratory Problems Chronic Obstructive Pulmonary Disease (COPD): No Asthma: No Genital/Urinary Problems Renal Disease: No Endocrine Problems Diabetes Mellitus Type 1: No Diabetes Mellitus Type 2: Yes Blood Problems Sickle Cell Disease: No Psychologic Problems Depression: Yes Anxiety: Yes Other Problems Falls: Yes Blood Transfusions: No Anesthesia Reactions: No Cancer: No History of Present Illness HPI Narrative 39-year-old male with past medical history of left knee ACL rupture, hyperlipidemia, hypertension, and IDDM was seen in the [facility] today for follow-up on his blood glucose. Patient maintains a log of his diet and his blood sugars were extracted on the Dexcom. His time was not compliant with low carbohydrate diet and with multiple servings of carbohydrates and sugar rich food throughout the days. His blood sugar on the Dexcom did not show some improvement from previous week, but still sugars are in the average of 36. He stated that he felt his insulin was little bit more this time and that he knows he should maintain proper diet, but that it is difficult for him due to financial burden. Spoke to the patient about trying to limit his carb intake and sugar intake and that he could replace these with other things like cheese vegetables or yogurt. Patient also came in with complaints of a new lesion that appeared on his side little bit above where he had abscess which was drained in the hospital. Upon examination the mass was around 3 cm in diameter nonfluctuating, but was tender. He also had another lesion a little bit above this morning which was non tender and was not as big. Will start the patient on doxycycline and Augmentin and will follow-up with him at the clinic again in 1 week, but advised to go to the ER if his pain got worse or if he spiked any fevers. Also started the patient on Tresiba 45 units daily in the morning and to continue the lispro 3 times daily 16 units. Review of Systems Review of Systems Narrative Review of Systems: Constitutional: Denies sweats, Denies weight loss/gain, Denies fever, Denies chills. HEENT: Denies hearing loss, Denies ear pain, Denies postnasal drip, Denies double vision, Denies blurry vision. Respiratory: Denies shortness of breath, Denies cough, Denies wheezing. Cardiovascular: Denies chest pain, Denies palpitations, Denies sudden loss of consciousness. GI: Denies blood in stool, Denies constipation, Denies abdominal pain, Denies difficulty swallowing, Denies nausea, Denies vomit. : Denies urinary incontinence, Denies pain while urinating, Denies increased urinary frequency. MSK: Admits joint pain, Denies joint swelling, Denies numbness. Skin: Admits rash, Denies itching, Denies easy bruising. Neuro: Denies headaches, Denies dizziness, Denies seizures. Objective/Exam General General Appearance: alert, comfortable, cooperative and well developed Head Head exam: atraumatic and normocephalic Eye Eye exam: Present normal appearance, PERRL and EOMI ENT ENT exam: Present normal exam, normal oropharynx and mucous membranes dry Neck Neck exam: Present other (clean dressing over wound from I&D on 10/30/2024) Resp Respiratory exam: Present normal lung sounds bilaterally Card Cardiovascular exam: Present regular rate, normal rhythm and normal heart sounds Abdominal Abdominal exam: Present soft and normal bowel sounds Extremities Extremities exam: Present normal inspection, full ROM, tenderness (R knee ) and joint swelling (R knee) Neuro Neurological exam: Present alert, oriented X3 and CN II-XII intact Psych Psychiatric exam: Present normal affect and normal mood Skin Skin exam: Present intact, normal color and other (tender nonfluctuating discolored mass in posterior neck measuring around 3cm, above previous abscess. Another small discolored nonfluctuating measuring 1 cm without tenderness above the one described previously. ) Assessment & Plan Diagnosis / Problem List (1) Carbuncle and furuncle of neck: Status: Acute Assessment & Plan: Patient developed 2 more lesions similar to how his previous abscess start on his posterior neck and head. These were nonfluctuating and did not have any discharge. Plan: ? Started the patient on Augmentin and doxycycline for 2 weeks ? Start the patient on mupirocin ointment ? Advised the patient to come to the ED if he spike any fevers or if the mass grows or had any discharge. -F/U in 1 week (2) Diabetes mellitus type 2 with complications, uncontrolled: Status: Acute Assessment & Plan: ? Reviewed Dexcom with patient and his average sugar was 362. ? Has not been following low carb or sugar diet Plan: ? Change patient's insulin regimen to Tresiba 45 units daily in the morning and 16 units of lispro 3 times daily with meals ? Reinforced low carbohydrate and sugar free diet Additional Assessment Internal Medicine Attending Note: Patient examined and interviewed. Case discussed with and agree with note and management plan of Resident Physician as per Resident's Note above. Issues of concern for present visit are as follows: Follow-up visit. Patient noted to have 2 more carbuncles on his posterior neck. These were nonfluctuant. Slight tenderness. Patient did have previous abscesses that progressed to necrotizing fasciitis in this area. We will start on Augmentin and doxycycline along with topical mupirocin. Patient will watch for any change in size, discharge, fevers, chills, or other concerning symptom. Follow-up in 1 week. Diabetes self-care reviewed including diet, exercise, footcare, eye care. Insulin doses adjusted given average sugar reading of over 300. Patient advised on diet measures to help with glucose control. Noah Turner MD Physician Billing Established Patient Established Patient: E/M Level 4-CPT 05545 Office Procedures [facility] Level of Care Nursing/Assessment Patient Status: Established Patient Nursing Assessment/Reassessment: Medication Reconciliation, Update PMH in EMR and Vital Signs Coordination of Care: Complex Care and Chronic Disease 1-5, Consent,records obtained, informed consent, Education Simp Pt/Fam and Lab and Imaging orders Established Patient Charge Established Patient Point Assignment: 90 Established Patient Point Charge: EP Level 3 (80-115)
== END 2024-12-03 15:32 | disposition home or self-care (01) ==
LOC: HODAHC 14:51
PROVIDERS: PCP Family Medicine; Referring Provider Family Medicine
DX: L02.13 Carbuncle of neck (principal); L02.12 Furuncle of neck; E11.9 Type 2 diabetes mellitus without complications
CPT/HCPCS: 99213; G0463

== ENCOUNTER → 2024-12-10 | Outpatient (CLI) | payer MEDICAID, SELFPAY | END | disposition home or self-care (01) | LOC: SWHD 13:46 | PROVIDERS: PCP Family Medicine; Referring Provider Family Medicine; Visit Provider Student in an Organized Health Care Education/Training Program | DX: S11.85XA Open bite of other specified part of neck, initial encounter (principal); X58.XXXA Exposure to other specified factors, initial encounter; N49.2 Inflammatory disorders of scrotum; F17.200 Nicotine dependence, unspecified, uncomplicated; Z79.4 Long term (current) use of insulin; Z79.84 Long term (current) use of oral hypoglycemic drugs; E03.9 Hypothyroidism, unspecified | CPT/HCPCS: 99213; A9270; G0463 ==

== ENCOUNTER → 2024-12-17 | Outpatient (CLI) | payer MEDICAID, SELFPAY | END | disposition home or self-care (01) | LOC: SWHD 13:34 | PROVIDERS: PCP Family Medicine; Referring Provider Family Medicine; Visit Provider Surgery | DX: S11.85XA Open bite of other specified part of neck, initial encounter (principal); X58.XXXA Exposure to other specified factors, initial encounter; L98.491 Non-pressure chronic ulcer of skin of other sites limited to breakdown of skin; L02.11 Cutaneous abscess of neck; N49.2 Inflammatory disorders of scrotum; F17.200 Nicotine dependence, unspecified, uncomplicated; Z79.4 Long term (current) use of insulin; Z79.84 Long term (current) use of oral hypoglycemic drugs; E03.9 Hypothyroidism, unspecified | CPT/HCPCS: 99213; G0463 ==

== ENCOUNTER → 2024-12-24 | Outpatient (CLI) | payer MEDICAID, SELFPAY | END | disposition home or self-care (01) | LOC: SWHD 14:52 | PROVIDERS: PCP Family Medicine; Referring Provider Family Medicine; Visit Provider Student in an Organized Health Care Education/Training Program | DX: S11.85XA Open bite of other specified part of neck, initial encounter (principal); X58.XXXA Exposure to other specified factors, initial encounter; L98.491 Non-pressure chronic ulcer of skin of other sites limited to breakdown of skin; L02.11 Cutaneous abscess of neck; N49.2 Inflammatory disorders of scrotum; F17.200 Nicotine dependence, unspecified, uncomplicated; Z79.4 Long term (current) use of insulin; Z79.84 Long term (current) use of oral hypoglycemic drugs; E03.9 Hypothyroidism, unspecified | CPT/HCPCS: 99213; G0463 ==

== ENCOUNTER → 2024-12-31 | Outpatient (CLI) | payer MEDICAID, SELFPAY | END | disposition home or self-care (01) | PROVIDERS: PCP Family Medicine; Referring Provider Family Medicine; Visit Provider Surgery | DX: S11.85XA Open bite of other specified part of neck, initial encounter (principal); X58.XXXA Exposure to other specified factors, initial encounter; L98.491 Non-pressure chronic ulcer of skin of other sites limited to breakdown of skin; L02.11 Cutaneous abscess of neck; N49.2 Inflammatory disorders of scrotum; F17.200 Nicotine dependence, unspecified, uncomplicated; Z79.4 Long term (current) use of insulin; Z79.84 Long term (current) use of oral hypoglycemic drugs; E03.9 Hypothyroidism, unspecified | CPT/HCPCS: 99212; G0463 ==

== ENCOUNTER → 2025-05-26 | Outpatient (CLI) | payer MEDICAID, SELFPAY ==
--- NOTE | 2025-05-26 14:00 | XR_ITS ---
Examination: MRI right foot, without contrast Date and time of exam: May 26, 2025 1344 hours INDICATIONS: Right foot pain 3 years Technique: Multiple axial sagittal and coronal images of the right ankle have been obtained with the Siemens high-resolution 1.5 Genet MRI scanner. Images obtained include T2-weighted fat-suppressed sagittal sections, TR 3500, TE 46, T2 weighted coronal fat suppressed images, TR 3050, TE 84, T2-weighted transverse fat suppressed images, TR 3260, TE 63, proton density transverse images, TR 4720 TE 46, and T1 weighted coronal images, TR 560, TE 13. Findings: Bone destruction and periosteal new bone involving the distal second metatarsal shaft and the proximal phalanx second digit Remaining digits intact as well as tarsal bones No pathologic fracture No soft tissue abscess IMPRESSION: Chronic osteomyelitis distal second metatarsal and proximal phalanx second digit
--- NOTE | 2025-05-26 14:45 | XR_ITS ---
Examination: MRI right ankle, without contrast Date and time of exam: May 26, 2025 1344 hours INDICATIONS: Ankle pain and swelling 3 years Technique: Multiple axial sagittal and coronal images of the right ankle have been obtained with the Siemens high-resolution 1.5 Genet MRI scanner. Images obtained include T2-weighted fat-suppressed sagittal sections, TR 3500, TE 46, T2 weighted coronal fat suppressed images, TR 3050, TE 84, T2-weighted transverse fat suppressed images, TR 3260, TE 63, proton density transverse images, TR 4720 TE 46, and T1 weighted coronal images, TR 560, TE 13. Findings: Edema surrounding the ankle and the subcutaneous fatty tissue No marrow edema bone contusion or cortical bone destruction involving the tarsal bones distal tibia and distal fibula No soft tissue abscess Mild diffuse flexor tendinitis IMPRESSION: Negative for osteomyelitis Negative for soft tissue abscess
== END | disposition home or self-care (01) ==
LOC: SMRI 13:18
PROVIDERS: PCP Hospitalist; Referring Provider Hospitalist; Visit Provider Hospitalist
DX: M86.671 Other chronic osteomyelitis, right ankle and foot (principal); M25.571 Pain in right ankle and joints of right foot
CPT/HCPCS: 73718; 73721

== ENCOUNTER 2025-07-09 21:42 | Emergency (ER) | payer MEDICAID, SELFPAY ==
[2025-07-09 21:42] VITALS: PULSE 88; RESP 16; O2SAT 97; BMI 29.5
[2025-07-09 21:48] VITALS: BP 131/87; PULSE 90; RESP 18; TEMP 37.1; O2SAT 99
--- NOTE | 2025-07-09 22:07 | XR_ITS ---
Examination: Foot, right, 3 views Technique: AP, oblique, lateral views foot, 3 views Date and time of exam: July 09, 2025 1022 hrs. Indications: Redness swelling and pain involving the foot this week, diabetes, hypertension Use, compared to April 24, 2024 Findings: Thickening of the cortex and periosteal new bone involving the proximal phalanx fifth digit, proximal phalanx second digit, second metatarsal No fracture Impression: Chronic osteomyelitis proximal phalanges second and fifth digits, second metatarsal
--- NOTE | 2025-07-09 22:08 | PD.EDRME ---
Rapid Medical Screening Exam RME Arrival date/time: 07/09/25 21:42 40M with history of DM, HTN, drug use, and known osteo in [place] presents to ED with worsening BLE pain (R>L). Patient signed out AMA from a SNF last week because he didn't like the care there and that he could manage it on his own. Chief Complaint: General Adult/Misc Complain Vital signs: Vital Signs Temperature 98.7 F 07/09/25 21:48 Pulse Rate 90 07/09/25 21:48 Respiratory Rate 18 07/09/25 21:48 Blood Pressure 131/87 H 07/09/25 21:48 Pulse Oximetry (%) 99 07/09/25 21:48 Oxygen Delivery Method Room Air 07/09/25 21:48
[2025-07-09 22:52] LABS: Basophils # (Auto) 0.0 Thou/mm3 (0.0-0.2); Basophils % (Auto) 1 % (0-2.5); Eosinophils # (Auto) 0.2 Thou/mm3 (0.0-0.5); Eosinophils % (Auto) 3 % (0-10); Hematocrit 49.1 % (41.0-53.0); Hemoglobin 16.7 g/dL (13.5-16.0); Immature Granulocytes Auto 0.04 Thou/mm3 (0.00-0.00); Lymphocytes # (Auto) 2.0 Thou/mm3 (1.0-4.8); Lymphocytes % (Auto) 29 % (10-50); Mean Corpuscular HGB Conc 34.0 g/dl (31.0-37.0); Mean Corpuscular Hemoglobin 27.7 pg (25.0-35.0); Mean Corpuscular Volume 81 fL (80-100); Monocytes # (Auto) 0.4 Thou/mm3 (0.0-0.8); Monocytes % (Auto) 6 % (0-12); Neutrophils # (Auto) 4.2 Thou/mm3 (1.8-7.7); Neutrophils % (Auto) 61 % (37-80); Nucleated Red Blood Cell # 0.00 Thou/mm3 (0.00-0.00); Nucleated Red Blood Cell % 0 /100 WBC (0); Platelet Count 228 Thou/mm3 (140-440); RDW Standard Deviation 39.5 fL (35.1-43.9); Red Blood Count 6.03 Miln/mm3 (4.50-5.90); White Blood Count 6.9 Thou/mm3 (3.8-10.6)
[2025-07-09 23:15] LABS: Alanine Aminotransferase 18 U/L (10-49); Albumin, Serum 4.7 gm/dL (3.5-5.0); Albumin/Globulin Ratio 1.8 (1.2-2.2); Alkaline Phosphatase 116 U/L (46-116); Anion Gap 10 (7-16); Aspartate Amino Transferase 11 U/L (0-34); BUN/Creatinine Ratio 13 Ratio (12-20); Bilirubin,Total 0.5 mg/dL (0.3-1.2); Blood Urea Nitrogen 16 mg/dL (9-23); C-Reactive Protein 1.0 mg/dL (0.0-0.9); Calcium 10.0 mg/dL (8.3-10.6); Calcium (Corrected) 10.0 mg/dL (8.5-10.1); Carbon Dioxide 28.0 mMol/L (20.0-31.0); Chloride 98 mMol/L (98-107); Creatinine (Component) 1.2 mg/dL (0.6-1.3); Estimated Creatinine Clearance 97.7 mL/min (>60); Globulin 2.6 gm/dL (2.3-3.5); Osmolality,Calculated 291 (275-295); Potassium 4.7 mMol/L (3.4-5.1); Sodium 136 mMol/L (136-145); Total Protein 7.3 gm/dL (5.7-8.2); eGFR > 60 See Note
[2025-07-09 23:17] LABS: Glucose 419 mg/dL (74-106)
[2025-07-09 23:23] LABS: Sed Rate (ESR) 7 mm/hr (0-15)
[2025-07-10 00:59] VITALS: BP 159/1; PULSE 87; RESP 19; O2SAT 96
--- NOTE | 2025-07-10 01:41 | EDNOTE_ITS ---
ED Extremity Problem RME/HPI General Chief complaint: General Adult/Misc Complain Stated complaint: BILATERAL LEG PAIN Arrival date/time: 07/09/25 21:42 RME / HPI RME / HPI Narrative: 07/09/25 21:42 40M with history of DM, HTN, drug use, and known osteo in RLE presents to ED with worsening BLE pain (R>L). Patient signed out AMA from a SNF last week because he didn't like the care there and that he could manage it on his own. DR. JIMENES MAIN ED EVALUATION: 40 y/o male with Hx of Type II DM, Methamphetamine use, and Osteomyelitis presents to ED c/o RLE pain. Patient signed out AMA from a SNF due to dissatisfaction in treatment and care. Patient felt confident in at-home self- care. Pain has since worsened. Patient has not been taking his insulin but reports taking Lantis 25 units BID. Related Data Previous Rx's ?Medication ?Instructions ?Recorded blood-glucose sensor (FreeStyle #2 ea 11/02/24 Tank 3 Sensor device) blood sugar diagnostic #100 ea 11/05/24 glucagon 3 mg/actuation nasal 3 mg intranasal QDAY #1 ea 11/05/24 spray (Baqsimi) insulin degludec 100 unit/mL (3 52 unit (0.52 mL) subc ut HS #15 mL 11/05/24 mL) subcutaneous pen insulin lispro 100 unit/mL 16 unit (0.16 mL) subcut TI DWMEAL 11/05/24 subcutaneous pen #15 mL lancets 30 gauge (OneTouch #200 ea 11/05/24 UltraSoft 2 Lancet) pen needle, diabetic 33 gauge x #100 ea 11/05/24 5/32 (Comfort EZ Pen [place]) sodium hypochlorite 0.125 % 1 applic topical QDAY #473 mL 11/05/24 solution (Dakin's Solution) mupirocin 2 % topical ointment 1 applic topical TID #2 2 grams 12/03/24 Dexcom G7 Statistical Consultant #1 ea 12/20/24 (blood-glucose,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,cont) blood-glucose sensor (Dexcom G7 #1 ea 12/20/24 Sensor device) hydrocodone 5 mg-acetaminophen 325 1 tab PO BID PRN pa in #60 tabs 01/10/25 mg tablet tirzepatide (weight loss) 2.5 2.5 mg (0.5 mL) subcut Q WEEK #2 mL 01/10/25 mg/0.5 mL subcutaneous pen injector (Zepbound) insulin glargine 100 unit/mL (3 20 unit (0.2 mL) subcu t BID #15 mL 07/10/25 mL) subcutaneous pen (Lantus Solostar U-100 Insulin) insulin regular human 100 unit/mL 1 sliding scale dose subcut 07/10/25 injection solution USEASDIRECTD #10 mL Allergies Allergy/AdvReac Type Severity Reaction Status Date / Time No Known Allergies Allergy Verified 12/03/24 15:10 Review of Systems Review of Systems Systems Reviewed: All systems reviewed, normal except as documented Past Medical History Past Medical History CARDIAC: Positive Hypercholesterolemia and Hypertension MUSCULOSKELETAL: Positive Osteomyelitis ENDOCRINE: Positive Diabetes Mellitus Type 2 PSYCHO/SOCIAL: Positive Recreational Drug Use, Depression and Anxiety OTHER HISTORY: Positive Falls Surgical History SURGICAL: Positive Tonsillectomy Social History SMOKING STATUS: Current every day smoker SUBSTANCE USE: methamphetamine ED Exam Narrative Physical exam: Generally patient is alert in no obvious distress, heart regular rate and rhythm, lungs clear to auscultation equal bilaterally, abdomen soft bowel sounds present's and nontender, skin shows evidence for vitiligo, extremities show no swelling or open wounds to either foot. Course Quality Measures none Orders Category Date Time Status XR foot comp RT min 3V Stat Exams 07/09/25 22:07 Completed CBC Stat Lab 07/09/25 22:20 Completed CMP [Comprehensive Metabolic Panel] Stat Lab 07/09/25 22:20 Completed CRP [C-Reactive Protein] Stat Lab 07/09/25 22:20 Completed ESR [Sed Rate (ESR)] Stat Lab 07/09/25 22:20 Completed Vital Signs Vital signs: Vital Signs Temperature 98.7 F 07/09/25 21:48 Pulse Rate 90 07/09/25 21:48 Respiratory Rate 18 07/09/25 21:48 Blood Pressure 131/87 H 07/09/25 21:48 Pulse Oximetry (%) 99 07/09/25 21:48 Oxygen Delivery Method Room Air 07/09/25 21:48 Extremity Problem MDM Narrative MDM Narrative:: Scribe Attestation: I, Cornelia York, am scribing for and in the presence of Dr. Jimenes. Provider Notation: Although this document has been carefully reviewed, there may still be some phonetic and other typographical errors. These errors are purely grammatical due to imperfections in the software program and should not be construed in any way to compromise the substance of the patient's medical care during this visit. All inflammatory markers including WBC count, CRP and sed rate are not elevated. X-ray of the right foot shows no acute osteomyelitis or acute bony destruction. Patient's blood sugar is 419. Patient is not diabetic ketoacidosis. He has not been taking his insulin. I will send the patient's insulin prescription into the pharmacy of his choice. Patient may follow-up with his primary care physician. I interpreted all labs. Patient data External records reviewed:: [facility] previous records (Reviewed prior ED records from 10/29/24. Patient was seen for Abscess, neck.) and EMS form Clinical information provided by:: patient and EMS Social determinants that could affect healthcare access:: none Patient has the following chronic illnesses:: Hypercholesterolemia, Hypertension, Osteomyelitis, Diabetes Mellitus Type 2, Depression and Anxiety How is presenting disease/condition affected by chronic disease/condition?: exacerbated by Evaluation data The following diagnostics were reviewed and interpreted by me:: lab results and radiology exam(s) Lab and/or radiology exams considered but not ordered:: None Interpretation Summary: RADIOLOGY Right Foot X-Ray: Findings: Thickening of the cortex and periosteal new bone involving the proximal phalanx fifth digit, proximal phalanx second digit, second metatarsal No fracture Impression: Chronic osteomyelitis proximal phalanges second and fifth digits, second metatarsal Medications / Prescriptions Medications or Prescriptions considered but not ordered:: None Medication administrations:: See above if any Consultations Consultation(s) initiated? (list below): No Diagnosis Extremity Problem Differential Diagnosis: herpes zoster, gout, cellulitis, superficial thrombophlebitis, lower extremity edema, deep vein thrombosis of lower extremity and other (Osteomyelitis) Most likely diagnosis given after review of the tests above:: none Admission Indicated Admission indicated?: not indicated Explain why admission is indicated or not indicated:: Patient does not meet admission criteria Admission Request Was there a request for admission?: No Disposition Plan Disposition Plan: Discharge Discharge Attestation Discharge Attestation: The patient and all family members were given an opportunity to ask questions and understood the discharge instructions. Discharge instructions specifically effects, indications for sooner follow up or return to the emergency department, and the expected course of current diagnosis. Patient condition: Stable Discharge Plan Plan Patient Disposition: HOME (Self Care) Prescriptions/Referrals Prescriptions/Med Rec: New insulin glargine [Lantus Solostar U-100 Insulin] 100 unit/mL (3 mL) insulin pen 20 unit subcut BID Qty: 15 0RF insulin regular human 100 unit/mL solution 1 sliding scale dose subcut USEASDIRECTD Qty: 10 0RF No Action (DME) blood sugar diagnostic Strip See Rx Instructions .Route Qty: 100 0RF Rx Instructions: As directed Baqsimi 3 mg/actuation spray,non-aerosol 3 mg intranasal QDAY Qty: 1 0RF insulin degludec 100 unit/mL (3 mL) insulin pen 52 unit subcut HS Qty: 15 3RF insulin lispro 100 unit/mL insulin pen 16 unit subcut TIDWMEAL Qty: 15 1RF Rx Instructions: 16 units with meals (DME) lancets [OneTouch UltraSoft 2 Lancet] 30 gauge misc See Rx Instructions .Route Qty: 200 0RF Rx Instructions: As directed (DME) pen needle, diabetic [Comfort EZ Pen [place]] 33 gauge x 5/32 needle See Rx Instructions .Route Qty: 100 5RF Rx Instructions: Use TID and PRN as directed Dakin's Solution 0.125 % solution 1 applic topical QDAY Qty: 473 0RF mupirocin 2 % ointment 1 applic topical TID Qty: 22 0RF Rx Instructions: Apply generous amount to affected areas in neck/scalp three times a day (DME) Dexcom G7 Statistical Consultant Misc See Rx Instructions .Route Qty: 1 0RF Rx Instructions: Use as directed with Dexcom G7 sensor (DME) Dexcom G7 Sensor Device See Rx Instructions .Route Qty: 1 11RF Rx Instructions: Use as directed with Dexcom G7 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 Zepbound 2.5 mg/0.5 mL pen injector 2.5 mg subcut QWEEK MDD 2.5 mg weekly Qty: 2 1RF Rx Instructions: for 4 weeks hydrocodone-acetaminophen 5-325 mg tablet 1 tab PO BID MDD 2 tabs PRN (Reason: pain) Qty: 60 0RF (DME) FreeStyle Tank 3 Sensor Device See Rx Instructions .Route Qty: 2 3RF Rx Instructions: As directed Referrals: No Primary/Family,Physician [Primary Care Provider] - In 1 week Problem List Clinical Impression: Chronic osteomyelitis, Poorly controlled diabetes mellitus Patient/Caregiver Discharge Instructions Education Materials: Diabetes: Keeping Feet Healthy, ED Diabetes- Overview Additional Instructions: Take your insulin as prescribed. Follow-up as needed with your primary care physician. Print Language: Italian Stand Alone Forms: Frida Award Info., Patient Portal Info Letter
[2025-07-10 02:10] VITALS: BP 114/77; PULSE 91; RESP 19; TEMP 37.1; O2SAT 96
== END 2025-07-10 02:12 | disposition home or self-care (01) ==
PROVIDERS: Physician Assistant; Emergency Provider Emergency Medicine
DX: E11.69 Type 2 diabetes mellitus with other specified complication (principal); E11.65 Type 2 diabetes mellitus with hyperglycemia; M86.671 Other chronic osteomyelitis, right ankle and foot
CPT/HCPCS: 36415; 73630; 80053; 85025; 85652; 86140; 99283

== ENCOUNTER 2025-07-25 13:50 | Outpatient (AMB) | payer MEDICAID, SELFPAY ==
[2025-07-25 14:07] VITALS: BP 132/76; PULSE 103; RESP 18; TEMP 36.6; O2SAT 97; BMI 31.2
--- NOTE | 2025-07-25 14:07 | ACNOTE_ITS ---
<Statement entered by Tip Rodriguez MD - 07/25/25 15:25> Attending note: I, Tip Rodriguez MD, attest that I was physically present for the alatorre portions of the service and evaluated the patient with the resident and I reviewed and discussed the case with the resident and agree with the resident's findings and plans of care as documented above. Vital Signs 07/25/25 14:07 Height 1.83 m Height Method Stated Weight 104.496 kg Weight Measurement Method Standing Scale BMI 31.2 BP 132/76 H Blood Pressure Source Automatic Cuff Blood Pressure Location Left Upper Arm Position Sitting Respiration 18 Pulse 103 H Pulse Source Monitor Temp 97.9 F Temp Source Oral Pulse Oximetry (%) 97 Oxygen Delivery Method Room Air Allergies/Meds Allergies & Medications Allergies No Known Allergies Allergy (Verified 07/25/25 14:08) MA Intake Visit Data Collection New Patient or Established: Established Patient (seen at [facility] within 3 years) Reason for Visit:: EMERGENCY ROOM FOLLOW UP Pain Present Currently: Yes Pain Location: Back (LOWER) Pain scale:: 4 Pain Scale Used: Dickey-Hanna/Numerical Oxygen Plant Operator Required: No PCP or OBGYN visit in last 3 months: Yes Hx Now: No Do You Feel Safe at Home: Yes Authorities Contacted: N/A Smoking Status Smoking Status: Current every day smoker Cessation Counseling Provided: AMY was advised that quitting smoking is the single most important factor to protect the health of themselves and their family. Discussed the benefits of quitting smoking with patient. Encouraged patient to quit smoking and provided Cessation assistance materials and resources. Tobacco Use: Cigarette Years smoked: 0 Are you interested in quitting?: No Immunization / Flu Flu Vaccine in the Last 12 Months: No Flu Vaccine Exclusion Criteria: No Exclusion Criteria Past Medical History Past Medical History NEUROLOGIC: Negative Neurological Disorders or Seizures CARDIAC: Positive Cardiac Disorders, Hypercholesterolemia and Hypertension; Negative Congestive Heart Failure RESPIRATORY: Negative Chronic Obstructive Pulmonary Disease (COPD) or Asthma GASTROINTESTINAL: Negative Gastrointestinal Disorders GENITOURINARY: Negative Genitourinary Disorders or Renal Disease MUSCULOSKELETAL: Positive Osteomyelitis ENDOCRINE: Positive Endocrine Disorders and Diabetes Mellitus Type 2; Negative Diabetes Mellitus Type 1 HEMATOLOGIC: Negative Blood Disorders or Sickle Cell Disease PSYCHO/SOCIAL: Positive Recreational Drug Use, Depression and Anxiety OTHER HISTORY: Positive Falls; Negative Blood Transfusions, Anesthesia Reactions or Cancer Surgical History SURGICAL: Positive Tonsillectomy Social History SMOKING STATUS: Smoking status: Current every day smoker SECOND HAND EXPOSURE: second hand exposure: Yes ALCOHOL: Alcohol Intake: Current ALCOHOL FREQUENCY: Alcohol Intake Frequency: holidays/special occasions only HOUSING: Housing: Apartment LIVES WITH: Lives With: Significant Other Patient Portal Questionaires PHQ-9 PHQ-2 Over the last 2 weeks, how often have you been bothered by any of the following problems? 1. Little interest or pleasure in doing things: not at all 2. Feeling down, depressed, or hopeless: not at all Total score: 0 PHQ-9 3. Trouble falling or staying asleep, or sleeping too much: Not at all 4. Feeling tired or having little energy: Not at all 5. Poor appetite or overeating: Not at all 6. Feeling bad about yourself - or that you are a failure or have let yourself or your family down: Not at all 7. Trouble concentrating on things, such as reading the newspaper or watching television: Not at all 8. Moving or speaking so slowly that other people could have noticed? - Or the opposite - being so fidgety or restless that you have been moving around a lot more than usual: not at all 9. Thoughts that you would be better off or of hurting yourself in some way: Not at all Total score: 0 Source: Developed by Drs. Tip Corey, Stacey Ortiz, Sha Carbone and colleagues, with an educational edith from [employer]. Depression screen completed yes Social History Living Situation History Housing: Apartment Housing Other:: Pt lives with family Tobacco History Smoking Status: Current every day smoker tobacco type: cigarettes Number of Cigars Per Week: 28 Second Hand Smoke Exposure: Yes Alcohol History Alcohol Intake: Current Alcohol Intake Frequency: holidays/special occasions only Substance Use History Substance Use: smokes meth Domestic Abuse History Do You Feel Safe at Home: Yes Review of Systems Report any current symptoms Only answer those that you have currently: Past Medical History Past Medical History Have you ever been diagnosed with any of the following: Neurological Problems Seizures: No Cardiology Problems Hypercholesterolemia: Yes Congestive Heart Failure: No Hypertension: Yes Respiratory Problems Chronic Obstructive Pulmonary Disease (COPD): No Asthma: No Genital/Urinary Problems Renal Disease: No Musculoskeletal Problems Osteomyelitis: Yes Endocrine Problems Diabetes Mellitus Type 1: No Diabetes Mellitus Type 2: Yes Blood Problems Sickle Cell Disease: No Psychologic Problems Recreational Drug Use: Yes Depression: Yes Anxiety: Yes Other Problems Falls: Yes Blood Transfusions: No Anesthesia Reactions: No Cancer: No History of Present Illness HPI Narrative Patient is a 40-year-old male with past medical history of insulin-dependent diabetes mellitus, history of DKA, history of chronic osteomyelitis on right lower extremity presented to [facility] [place] with chief complaints of lower extremity pain and need for chcf placement. Patient stated that on December he fell, had lower extremity fracture, after which it complicated with osteomyelitis. PICC line was placed at that time, patient received IV antibiotics after which it switched to p.o. Per patient the whole antibiotic course was about 4 to 6 weeks. After which PICC line was removed. Patient stated that he continues to have lower extremity pain. Recently patient stated that he was not feeling that he has been appropriately taking care in facility, for that reason patient AMA from the facility. However shortly after that patient stated that he felt the need to be taking care of, and to return to facility. However for some reason facility denied the admission as he needed a doctor note. Patient is saying that after leaving the facility he has been out of insulin as well as all home medication that he was taking. He presented to the ED on July 10, evaluated, at that time the labs were within normal limits including CRP and ESR, patient was found to be hyperglycemic with glucose level above 400. Was given insulin and was discharged from ED. Not sure if at that time patient expressed wishes to be placed on a nursing facility or not. However today on presentation patient stated that he really needs a care and he would like to return to nursing facility. Due to multiple medical conditions patient requires ongoing monitoring and a structural environment where medical interventions can be readily administered. This condition includes insulin-dependent diabetes mellitus, as patient needs insulin, and glucose monitoring given the history of DKA patient is in the high risk of going into DKA. History of chronic osteomyelitis and need for physical therapy. Patient has a complex medical regimen that requires consistent medication management, routine monitoring of vital signs, and specialized care. It is the best interest of the patient's house to be readmitted to the facility that can offer 24-hour medical care, assistance, physical therapy, if necessary resources ongoing needs. Patient care was discussed with attending physician Dr. Michael Wilson MD PGY-3 I have carefully reviewed this document. Due to imperfections in the voice software, there could be grammatical errors including phonetic/typographic errors. This in no way compromises the medical care the patient is receiving Review of Systems Review of Systems Systems Reviewed: All systems reviewed, normal except as documented Objective/Exam Narrative Physical exam: GENERAL: no acute distress, AAO x3, well nourished. HEENT: Head AT/ NC. Mucous membranes moist. PERRL. NECK: Supple, no lymphadenopathy, no carotid bruits. CARDIOVASCULAR: RRR. Normal S1/S2, No m/r/g. No pitting edema of bilateral LEs. RESPIRATORY: CTAB. No wheezing, rhonchi, crackles. GASTROINTESTINAL: Abdomen soft, non tender no palpable masses. Bowel sounds present in all 4 quadrants. MUSCULOSKELETAL:? No cyanosis or edema, no visible joint swelling. NEUROLOGICAL: CN II-XII grossly intact. No focal deficits. Sensation intact, symmetric. PSYCHIATRIC: Awake and alert, not agitated, normal mood and affect. INTEGUMENTARY:1st, 2nd toes discoloration, tender to touch, skin is intact. Assessment & Plan Diagnosis / Problem List (1) Unsheltered homelessness: Status: Acute Assessment & Plan: Patient presented with complaints of being homeless, and in need of being taking care for his chronic medical conditions. As patient is out of the medication and was not getting insulin. Patient stated that he would like to be admitted to the nursing facility for continues care Plan: Due to multiple medical conditions patient requires ongoing monitoring and a structural environment where medical interventions can be readily administered. This condition includes insulin-dependent diabetes mellitus, as patient needs insulin, and glucose monitoring given the history of DKA patient is in the high risk of going into DKA. History of chronic osteomyelitis and need for physical therapy. Patient has a complex medical regimen that requires consistent medication management, routine monitoring of vital signs, and specialized care. It is the best interest of the patient's house to be readmitted to the facility that can offer 24-hour medical care, assistance, physical therapy, if necessary resources ongoing needs. (2) Chronic osteoarthritis: Status: Acute Assessment & Plan: Patient was diagnosed with chronic osteomyelitis, PICC line was placed, and according to the patient total of 4 to 6 weeks of antibiotics. Last visit to ED was on 07/10/2025, where x-ray was done which revealed chronic osteomyelitis, CRP, ESR and WBC was within normal limits Plan: Continue care, pain management as needed, physical therapy would be beneficial in nursing facility. (3) Diabetes: Status: Chronic Qualifiers: Diabetes mellitus type: type 1 Assessment & Plan: History of diabetes many years, history of DKA. Patient states that he has a supply to check his blood sugars regularly. Plan: Patient will be sent to his nursing facility, hopefully will get admitted and will get insulin supply. Patient also stated that he has been having a problem with his insurance to get him supplies. Patient has [employer]. It is his best interest to be readmitted to the nursing facility and resume care care for better blood sugar control. Office Procedures [facility] Level of Care Nursing/Assessment Patient Status: Established Patient Nursing Assessment/Reassessment: Medication Reconciliation, Update PMH in EMR and Vital Signs Coordination of Care: Complex Care and Chronic Disease 1-5, Consent,records obtained, informed consent, Education Simp Pt/Fam, 1 Ins Authorization, Lab and Imaging orders, Results/Orders obtained and Staff clarify orders Established Patient Charge Established Patient Point Assignment: 120 Established Patient Point Charge: EP Level 4 (120-155) TB Screening LTBI Screening: Has patient traveled, was born, or resided for at least 1 month, or frequent border crossing into a country with an elevated TB rate: No Immunosuppression, current or planned (HIV, organ transplant, treated with biologic agents, steroids, or other immunosuppression medication): No Close contact to someone with infectious TB disease during lifetime: No Homelessness or incarceration, current or past: No TB testing indicated at this time (at least 1 yes above): No
== END 2025-07-25 14:35 | disposition home or self-care (01) ==
LOC: HODAHC 13:50
PROVIDERS: Supervising Provider Internal Medicine; Visit Provider Student in an Organized Health Care Education/Training Program
DX: M86.60 Other chronic osteomyelitis, unspecified site (principal); E11.9 Type 2 diabetes mellitus without complications; Z79.4 Long term (current) use of insulin; Z59.02 Unsheltered homelessness
CPT/HCPCS: 99214; G0463

== ENCOUNTER 2025-08-24 00:53 | Emergency (ER) | payer MEDICAID, SELFPAY ==
[2025-08-24 00:54] VITALS: BMI 31.4
[2025-08-24 01:01] LABS: Base Excess, Venous 0 (-3-3); Hematocrit 42.2 % (41.0-53.0); Hemoglobin 15.0 g/dL (13.5-16.0); Mean Corpuscular HGB Conc 35.5 g/dl (31.0-37.0); Mean Corpuscular Hemoglobin 28.5 pg (25.0-35.0); Mean Corpuscular Volume 80 fL (80-100); Nucleated Red Blood Cell # 0.00 Thou/mm3 (0.00-0.00); Nucleated Red Blood Cell % 0 /100 WBC (0); O2 Saturation, Venous 57 % (96-97); PCO2, Venous 50 mmHg (36-56); PO2, Venous 29 mmHg (15-58); Platelet Count 237 Thou/mm3 (140-440); RDW Standard Deviation 37.2 fL (35.1-43.9); Red Blood Count 5.26 Miln/mm3 (4.50-5.90); White Blood Count 9.9 Thou/mm3 (3.8-10.6); pH, Venous 7.34 (7.33-7.66)
[2025-08-24 01:03] LABS: Lactate (Lactic Acid) 1.0 mMol/L (0.4-2.0)
[2025-08-24 01:10] LABS: Beta Hydroxybutyrate 0.7 mmol/L (<0.6)
[2025-08-24 01:12] LABS: Basophils # (Auto) 0.1 Thou/mm3 (0.0-0.2); Basophils % (Auto) 1 % (0-2.5); Eosinophils # (Auto) 0.1 Thou/mm3 (0.0-0.5); Eosinophils % (Auto) 1 % (0-10); Lymphocytes # (Auto) 2.0 Thou/mm3 (1.0-4.8); Lymphocytes % (Auto) 20 % (10-50); Monocytes # (Auto) 0.8 Thou/mm3 (0.0-0.8); Monocytes % (Auto) 8 % (0-12); Neutrophils % (Auto) 70 % (37-80)
[2025-08-24 01:13] LABS: Immature Granulocytes Auto 0.00 Thou/mm3 (0.00-0.00); Sed Rate (ESR) 10 mm/hr (0-15)
[2025-08-24 01:19] VITALS: BP 147/88; PULSE 88; RESP 17; TEMP 36.4; O2SAT 97
--- NOTE | 2025-08-24 01:32 | PD.EDWEAK ---
ED Weakness RME/HPI General Chief complaint: General Adult/Misc Complain Stated complaint: DIABETIES COMPLICATIONS Time Seen by Provider: 08/24/25 01:31 PDT Arrival date/time: 08/24/25 00:53 RME / HPI RME / HPI Narrative: See MDM for Dr. Hinojosa's HPI Documentation. Related Data Previous Rx's ?Medication ?Instructions ?Recorded insulin glargine 100 unit/mL 25 unit (0.25 mL) subcut QAM #10 mL 07/25/25 subcutaneous solution (Lantus U-100 Insulin) insulin glargine 100 unit/mL 25 unit (0.25 mL) subcut QPM #10 mL 07/25/25 subcutaneous solution (Lantus U-100 Insulin) metformin 750 mg tablet 750 mg PO QDAY #30 tabs 07/25/25 Allergies Allergy/AdvReac Type Severity Reaction Status Date / Time No Known Allergies Allergy Verified 08/24/25 01:00 PDT Review of Systems Review of Systems Systems Reviewed: All systems reviewed, normal except as documented Past Medical History Past Medical History CARDIAC: Positive Cardiac Disorders, Hypercholesterolemia and Hypertension MUSCULOSKELETAL: Positive Osteomyelitis ENDOCRINE: Positive Endocrine Disorders and Diabetes Mellitus Type 2 PSYCHO/SOCIAL: Positive Recreational Drug Use, Depression and Anxiety OTHER HISTORY: Positive Falls Surgical History SURGICAL: Positive Tonsillectomy Social History SMOKING STATUS: Current every day smoker SECOND HAND EXPOSURE: Yes SUBSTANCE USE: methamphetamine HOUSING: Homeless LIVES WITH: Alone ED Exam Narrative Physical exam: See [facility] for Dr. Hinojosa's Physical Exam Documentation. Course Quality Measures none Orders Category Date Time Status Glucose [Bedside Blood Glucose] NOW Care 08/24/25 01:29 Completed Glucose [Bedside Blood Glucose] NOW Care 08/24/25 02:25 Completed Glucose [Bedside Blood Glucose] NOW Care 08/24/25 04:04 Completed Alcohol, Blood Medical Stat Lab 08/24/25 01:43 Completed BNP [B-Type Natriuretic Peptide] Stat Lab 08/24/25 01:43 Completed Beta Hydroxybutyrate Stat Lab 08/24/25 01:43 Completed Bilirubin,Direct Stat Lab 08/24/25 01:43 Completed CBC Stat Lab 08/24/25 01:43 Completed CK [Creatine Kinase] Stat Lab 08/24/25 01:43 Completed CMP [Comprehensive Metabolic Panel] Stat Lab 08/24/25 01:43 Completed CRP [C-Reactive Protein] Stat Lab 08/24/25 01:43 Completed ESR [Sed Rate (ESR)] Stat Lab 08/24/25 01:43 Completed Hemoglobin A1C [Glycohemoglobin w (eAG)] Stat Lab 08/24/25 01:43 Completed Lactate (Lactic Acid) Stat Lab 08/24/25 01:43 Completed Lipase Stat Lab 08/24/25 01:43 Completed Magnesium Stat Lab 08/24/25 01:43 Completed Procalcitonin Stat Lab 08/24/25 01:43 Completed TSH [Thyroid Stimulating Hormone] Stat Lab 08/24/25 01:43 Completed Troponin I Stat Lab 08/24/25 01:43 Completed VBG [Venous Blood Gas] Stat Lab 08/24/25 01:43 Completed Insulin Regular Med 08/24/25 01:33 Discontinued 12 unit SC X1 ONE Insulin Regular Med 08/24/25 02:33 Discontinued 20 unit SC X1 ONE Vital Signs Vital signs: Vital Signs Temperature 97.6 F 08/24/25 01:19 PDT Pulse Rate 88 08/24/25 01:19 PDT Respiratory Rate 17 08/24/25 01:19 PDT Blood Pressure 147/88 H 08/24/25 01:19 PDT Pulse Oximetry (%) 97 08/24/25 01:19 PDT Oxygen Delivery Method Room Air 08/24/25 01:19 PDT Weakness MDM Narrative MDM Narrative:: This section includes all my notes and documentations, including HPI, PE, and ED course. Marcos Hinojosa MD HPI: 40 y/o male with Hx of Type II DM, HTN, Methamphetamine use and Homelessness here with increased thirst, dry mouth, polyuria, weakness, and blurred vision. Has not been compliant with his diabetic medications. No other complaints. ROS: All negative except as documented in HPI. Physical Exam: General:? Alert and oriented.? No acute distress.? Eyes:? Conjunctivae and lids clear.? EOMI.? PERRL. ENT:? No signs of head trauma. Neck:? Supple.? No tenderness. Heart:? RRR. Lungs:? No respiratory distress.? Good air movement.? No rhonchi, wheezing, rales.? Chest:? No tenderness. Abdomen:? Soft and nontender.? Normal bowel sounds.? No distension.? No rebound or guarding.? Back:? No tenderness.? Skin:? Warm and dry.? Neuro:? Alert and oriented X 3.? Cranial Nerves II-XII grossly intact.? No peripheral motor deficits. Musculoskeletal:? All major joints and bones are not tender with no limited ROM. I reviewed all diagnostic test results: Blood tests remarkable for glucose 480. At this point, diagnoses include: Uncontrolled Diabetes Mellitus Treatment here included: Insulin 12 units SC Insulin 20 units SC Significant improvement noted. Recommended outpatient care. Based on my best medical judgment, made decision no further evaluation or treatment indicated at this time. Patient understands and agrees to the discharge instructions customized and printed, see below. Discharge Instructions printed for you: 1. You were treated today for severely high sugar level. 2. To prevent severe complications from uncontrolled diabetes, take insulin as prescribed by your private doctors. 3. See a private doctor on 08/25/2025 for recheck. Ask to review all test results and official radiology reports, to make sure you receive all necessary follow-ups and monitoring. Ask for help with good management of your diabetes. 4. Seek immediate medical care with worsening or with any concerns. Marcos Hinojosa MD Patient data External records reviewed:: [facility] previous records (Reviewed prior ED records from 07/10/25. Patient was seen for Chronic osteomyelitis.) Clinical information provided by:: patient Social determinants that could affect healthcare access:: substance use (Methamphetamine) Patient has the following chronic illnesses:: Hypercholesterolemia, Hypertension, Osteomyelitis, Diabetes Mellitus Type 2, Recreational Drug Use, Depression and Anxiety How is presenting disease/condition affected by chronic disease/condition?: exacerbated by Evaluation data The following diagnostics were reviewed and interpreted by me:: lab results Lab and/or radiology exams considered but not ordered:: None Interpretation Summary: Blood test remarkable for glucose 480. Medications / Prescriptions Medications or Prescriptions considered but not ordered:: None Medication administrations:: Medication Administration History Discontinued Medications Insulin Human Regular (Insulin Hum Regular 1 Unit/0.01 Ml (Per Unit)) 12 unit SC X1 ONE Stop: 08/24/25 01:34 PST Last Admin: 08/24/25 01:45 PDT Dose: 12 unit Documented By: CB Co-signed By: MERRY Insulin Human Regular (Insulin Hum Regular 1 Unit/0.01 Ml (Per Unit)) 20 unit SC X1 ONE Stop: 08/24/25 02:34 Last Admin: 08/24/25 02:46 Dose: 20 unit Documented By: SIMON Co-signed By: MERRY Insulin 12 units SC Insulin 20 units SC Consultations Consultation(s) initiated? (list below): No Diagnosis Weakness Differential Diagnosis: anemia, hypoglycemia, rhabdomyolysis, sepsis, dehydration and other (Hyperglycemia, HTN) Most likely diagnosis given after review of the tests above:: Uncontrolled Diabetes Mellitus Admission Indicated Admission indicated?: not indicated Explain why admission is indicated or not indicated:: With significant improvement and no condition needing emergent intervention, there was no indication for admission. Admission Request Was there a request for admission?: No Disposition Plan Disposition Plan: Discharge Discharge Attestation Discharge Attestation: The patient and all family members were given an opportunity to ask questions and understood the discharge instructions. Discharge instructions specifically effects, indications for sooner follow up or return to the emergency department, and the expected course of current diagnosis. Patient condition: Stable Discharge Plan Plan Patient Disposition: HOME (Self Care) Prescriptions/Referrals Prescriptions/Med Rec: No Action insulin glargine [Lantus U-100 Insulin] 100 unit/mL solution 25 unit subcut QPM Qty: 10 0RF Rx Instructions: take 25 Units before bedtime insulin glargine [Lantus U-100 Insulin] 100 unit/mL solution 25 unit subcut QAM Qty: 10 0RF Rx Instructions: take 25 units subcut every morning metformin 750 mg tablet 750 mg PO QDAY Qty: 30 0RF Referrals: No Primary/Family,Physician [Primary Care Provider] - In 1 week Problem List Clinical Impression: Uncontrolled diabetes mellitus Patient/Caregiver Discharge Instructions Discharge Activity: activity as tolerated Education Materials: ED Diabetes- Overview Additional Instructions: Discharge Instructions printed for you: 1. You were treated today for severely high sugar level. 2. To prevent severe complications from uncontrolled diabetes, take insulin as prescribed by your private doctors. 3. See a private doctor on 08/25/2025 for recheck. Ask to review all test results and official radiology reports, to make sure you receive all necessary follow-ups and monitoring. Ask for help with good management of your diabetes. 4. Seek immediate medical care with worsening or with any concerns. Print Language: Danish Stand Alone Forms: Frida Award Info., Patient Portal Info Letter
[2025-08-24] MEDS: INSULIN HUM REGULAR 1 UNIT/0.01 ML (PER UNIT) 12 UNIT SC (01:45)
[2025-08-24 02:14] LABS: Alanine Aminotransferase 18 U/L (10-49); Albumin, Serum 5.2 gm/dL (3.5-5.0); Albumin/Globulin Ratio 2.5 (1.2-2.2); Alcohol, Blood Medical < 3.0 mg/dL (0-10.0); Alkaline Phosphatase 129 U/L (46-116); Anion Gap 12 (7-16); Aspartate Amino Transferase 16 U/L (0-34); B-Type Natriuretic Peptide < 20 pg/mL (0-100); BUN/Creatinine Ratio 14 Ratio (12-20); Bilirubin,Direct 0.1 mg/dL (0.0-0.3); Bilirubin,Total 0.5 mg/dL (0.3-1.2); Blood Urea Nitrogen 17 mg/dL (9-23); C-Reactive Protein 1.6 mg/dL (0.0-0.9); Calcium 9.9 mg/dL (8.3-10.6); Calcium (Corrected) 9.9 mg/dL (8.5-10.1); Carbon Dioxide 24.0 mMol/L (20.0-31.0); Chloride 100 mMol/L (98-107); Creatine Kinase 140 U/L (34-171); Creatinine (Component) 1.2 mg/dL (0.6-1.3); Estimated Creatinine Clearance 100.6 mL/min (>60); Globulin 2.1 gm/dL (2.3-3.5); Glucose Estimated Average 341 mg/dL (80-131); Hemoglobin A1C 13.5 % Hgb (4.8-6.0); Lipase 34 U/L (12-53); Magnesium 2.0 mg/dL (1.6-2.6); Osmolality,Calculated 294 (275-295); Potassium 3.8 mMol/L (3.4-5.1); Procalcitonin < 0.04 ng/ml (0.0-0.49); Sodium 136 mMol/L (136-145); Thyroid Stimulating Hormone 1.67 uIU/mL (0.55-4.78); Total Protein 7.3 gm/dL (5.7-8.2); Troponin I < 0.002 ng/mL (0.0-0.045); eGFR > 60 See Note
[2025-08-24 02:20] LABS: Glucose 480 mg/dL (74-106)
[2025-08-24] MEDS: INSULIN HUM REGULAR 1 UNIT/0.01 ML (PER UNIT) 20 UNIT SC (02:46)
== END 2025-08-24 05:13 | disposition home or self-care (01) ==
PROVIDERS: Emergency Provider Emergency Medicine
DX: E11.65 Type 2 diabetes mellitus with hyperglycemia (principal); I10 Essential (primary) hypertension; Z59.00 Homelessness unspecified; Z79.4 Long term (current) use of insulin; Z79.84 Long term (current) use of oral hypoglycemic drugs; Z91.148 Patient's other noncompliance with medication regimen for other reason
CPT/HCPCS: 36415; 80053; 80307; 80320; 81001; 82010; 82248; 82550; 82803; 83036; 83605; 83690; 83735; 83880; 84145; 84443; 84484; 85025; 85652; 86140; 99282; J1815; G0480